=== PATIENT | male | born 1945 | race Caucasian/White ===

== ENCOUNTER 2017-01-08 05:01 | Inpatient (IN) ==
[2017-01-06 17:54] LABS: Basophils # (Auto) 0 K/mcL (0.0-0.3); Basophils % (Auto) 0.7 % (0.0-2.0); Eosinophils # (Auto) 0.3 K/mcL (0.0-0.7); Eosinophils % (Auto) 5.2 % (0.0-7.0); Granulocytes % (Auto) 69.8 % (38.0-78.0); Lymphocytes % (Auto) 15.8 % (15.5-49.0); Mean Cell Volume 87.5 fL (80.0-100.0); Mean Corpuscular HGB Conc 32.7 g/dL (31.0-36.0); Mean Corpuscular Hemoglobin 28.6 pg (26.0-34.0); Monocytes # (Auto) 0.5 K/mcL (0.1-0.9); Monocytes % (Auto) 8.5 % (1.0-9.0); Platelet Count 398 K/mcL (140-440); RBC 4.91 M/mcL (4.50-5.90); Red Cell Distribution Width 15.1 % (11.5-14.5)
[2017-01-06 18:15] LABS: ALT/SGPT 12 U/l (0-40); Albumin 4.2 gm/dL (3.2-5.2); Albumin/Globulin Ratio 1.5 (1.0-2.3); Alkaline Phosphatase 68 U/L (39-117); Blood Urea Nitrogen 38 mg/dl (8-23)
--- NOTE | 2017-01-07 15:15 | XRay Report ---
CLINICAL INFORMATION: Preop COMPARISON: 06/11/2016 FINDINGS:The heart size, mediastinum and pulmonary vessels are unremarkable. The lungs are clear. There are no effusions. The bones and soft tissues are within normal limits. IMPRESSION: Normal chest. Interpreted and Authenticated by: Mitchell Wei 01/07/17
[2017-01-08] MEDS ORDERED: metroNIDAZOLE 500 MG/100 ML BAG IV SCH (06:30)
[2017-01-08] MEDS ORDERED: cefOXitin 2 GM in DEXTROSE 5% IN WATER 50 ML IV SCH (06:30)
[2017-01-08] MEDS ORDERED: VANCOMYCIN 1,000 MG in 0.9 % SODIUM CHLORIDE 250 ML IV SCH (06:30)
[2017-01-08] MEDS ORDERED: fentaNYL 100 MCG/2 ML VIAL IV ONE (07:50)
[2017-01-08] MEDS ORDERED: LIDOCAINE HCL/PF 100 MG/5 ML SYRINGE IV ONE (07:50)
[2017-01-08] MEDS ORDERED: ONDANSETRON 4 MG/2 ML VIAL IV ONE (07:50)
[2017-01-08] MEDS ORDERED: MIDAZOLAM 5 MG/5 ML VIAL IV ONE (07:50)
[2017-01-08] MEDS ORDERED: ROCURONIUM 10 MG/ML ML IV ONE (07:50)
[2017-01-08] MEDS ORDERED: PROPOFOL 200 MG/20 ML VIAL IV ONE (07:50)
[2017-01-08] MEDS ORDERED: KETAMINE 100 MG/ML ML IV ONE (07:50)
[2017-01-08] MEDS ORDERED: NEOSTIGMINE 1 MG/ML VIAL IV ONE (07:50)
[2017-01-08] MEDS ORDERED: ePHEDrine 50 MG/ML AMPUL IV ONE (07:50)
[2017-01-08] MEDS ORDERED: GLYCOPYRROLATE 0.2 MG/ML VIAL IV ONE (07:50)
[2017-01-08] MEDS ORDERED: BACITRACIN 50,000 UNIT VIAL IR ONE (08:40)
[2017-01-08] MEDS ORDERED: METHOCARBAMOL 1,000 MG/10 ML VIAL IV PRN (09:02)
[2017-01-08] MEDS ORDERED: MEPERIDINE 25 MG/ML SYRINGE IV PRN (09:02)
[2017-01-08] MEDS ORDERED: BENZOCAINE/MENTHOL 1 LOZENGE PO PRN (09:02)
[2017-01-08] MEDS ORDERED: PROMETHAZINE 25 MG/ML VIAL IV PRN ×2 (09:02→11:01)
[2017-01-08] MEDS ORDERED: ePHEDrine 50 MG/ML AMPUL IV PRN (09:02)
[2017-01-08] MEDS ORDERED: IPRATROPIUM/ALBUTEROL 3 ML AMPUL.NEB NEB PRN (09:02)
[2017-01-08] MEDS ORDERED: LACTATED RINGERS 1,000 ML IV SCH (09:15)
--- NOTE | 2017-01-08 10:01 | XRay Report ---
CLINICAL INFORMATION: Intraoperative instrument count COMPARISON: None. FINDINGS: Stool gas pattern is unremarkable. No gross free air, soft tissue mass or organomegaly. No effusion is identified. Penile prostheses seen off the edge of the film below the pubis. IMPRESSION: Negative Interpreted and Authenticated by: Mitchell Wei 01/08/17
--- NOTE | 2017-01-08 10:03 | Brief Operative Note ---
Date of procedure: 01/08/17 Pre-op diagnosis: parastomal hernia Post-op diagnosis: other (parastomal hernia.) Procedure: parastomal hernia repair with mesh Grafts/Implants: Yes (surgimesh) Anesthesia: GETA Findings: very large parastomal hernia with multiple loops of incarcerated small bowel loops Complications: none Surgeon: Rolo Cole Estimated blood loss (cc): 20 Specimens Removed/Pathology: none sent Condition: stable Disposition: PACU
[2017-01-08] MEDS ORDERED: oxyCODONE HCL 5 MG TABLET PO PRN (10:09)
[2017-01-08] MEDS: fentaNYL 100 MCG/2 ML VIAL IV PRN ×4 (10:10→10:40)
[2017-01-08] MEDS: HYDROmorphone 2 MG/ML SYRINGE IV PRN ×6 (10:30→19:59)
[2017-01-08] MEDS: 0.9 % SODIUM CHLORIDE 1,000 ML IV SCH (11:00)
[2017-01-08] MEDS ORDERED: HYDROmorphone 2 MG/ML SYRINGE ONE (11:27)
[2017-01-08] MEDS: METOCLOPRAMIDE 10 MG/2 ML VIAL IV SCH ×3 (12:31→23:54)
[2017-01-08] MEDS: PIPERACILLIN SODIUM/TAZOBACTAM 3.375 GM in DEXTROSE 5% IN WATER 50 ML IV SCH ×2 (12:32→17:20)
[2017-01-08] MEDS: metroNIDAZOLE 500 MG/100 ML BAG IV SCH ×2 (13:33→17:47)
[2017-01-08] MEDS: oxyCODONE HCL 5 MG TABLET PO PRN ×2 (13:33→19:58)
[2017-01-08 16:12] LABS: Blood Urea Nitrogen 32 mg/dl (8-23)
[2017-01-08] MEDS: PANTOPRAZOLE 40 MG PACKET PO SCH (17:19)
[2017-01-08] MEDS ORDERED: POTASSIUM CHLORIDE 10 MEQ TABLET PO SCH (17:30)
[2017-01-08] MEDS: POTASSIUM CHLORIDE 10 MEQ TABLET PO SCH (17:47)
[2017-01-08] MEDS ORDERED: ZOLPIDEM 5 MG TABLET PO PRN ×2 (21:00)
[2017-01-08] MEDS: VANCOMYCIN 1,000 MG in 0.9 % SODIUM CHLORIDE 250 ML IV SCH (21:24)
[2017-01-08] MEDS: ACETAMINOPHEN 1,000 MG/100 ML BOTTLE IV PRN (23:54)
[2017-01-09] MEDS: PIPERACILLIN SODIUM/TAZOBACTAM 3.375 GM in DEXTROSE 5% IN WATER 50 ML IV SCH ×4 (01:06→17:12)
[2017-01-09] MEDS: metroNIDAZOLE 500 MG/100 ML BAG IV SCH ×4 (01:51→17:49)
[2017-01-09] MEDS: 0.9 % SODIUM CHLORIDE 1,000 ML IV SCH ×4 (01:56→19:11)
[2017-01-09] MEDS: oxyCODONE HCL 5 MG TABLET PO PRN ×3 (06:18→21:27)
[2017-01-09] MEDS: METOCLOPRAMIDE 10 MG/2 ML VIAL IV SCH ×3 (06:18→17:11)
[2017-01-09 07:42] LABS: Blood Urea Nitrogen 21 mg/dl (8-23)
[2017-01-09] MEDS: PANTOPRAZOLE 40 MG PACKET PO SCH ×2 (08:03→17:11)
[2017-01-09] MEDS ORDERED: TAMSULOSIN 0.4 MG CAPSULE PO SCH (09:00)
[2017-01-09] MEDS ORDERED: LISINOPRIL 20 MG TABLET PO SCH (09:00)
[2017-01-09 09:31] LABS: Basophils # (Auto) 0 K/mcL (0.0-0.3); Basophils % (Auto) 0.1 % (0.0-2.0); Eosinophils # (Auto) 0.1 K/mcL (0.0-0.7); Granulocytes % (Auto) 86.4 % (38.0-78.0); Lymphocytes # (Auto) 0.3 K/mcL (1.5-4.8); Lymphocytes % (Auto) 3.5 % (15.5-49.0); Mean Cell Volume 86.4 fL (80.0-100.0); Mean Corpuscular HGB Conc 33.2 g/dL (31.0-36.0); Mean Corpuscular Hemoglobin 28.7 pg (26.0-34.0); Monocytes # (Auto) 0.7 K/mcL (0.1-0.9); Platelet Count 343 K/mcL (140-440); RBC 4.54 M/mcL (4.50-5.90); Red Cell Distribution Width 14.8 % (11.5-14.5)
[2017-01-09] MEDS: LISINOPRIL 20 MG TABLET PO SCH (09:43)
[2017-01-09] MEDS: TAMSULOSIN 0.4 MG CAPSULE PO SCH (09:44)
[2017-01-09] MEDS ORDERED: VANCOMYCIN PER PHARMACY IV SCH (09:45)
[2017-01-09] MEDS: POTASSIUM CHLORIDE 10 MEQ TABLET PO SCH ×2 (09:51→17:11)
[2017-01-09] MEDS: HYDROmorphone 2 MG/ML SYRINGE IV PRN ×2 (10:13→17:12)
[2017-01-09] MEDS: VANCOMYCIN 750 MG in 0.9 % SODIUM CHLORIDE 250 ML IV SCH ×2 (10:21→21:08)
[2017-01-09] MEDS: VANCOMYCIN 1,000 MG in 0.9 % SODIUM CHLORIDE 250 ML IV SCH (11:35)
--- NOTE | 2017-01-09 13:53 | General Surgery Progress Note ---
Subjective Patient reports: feels better, still having pain, tolerating liquids well, no flatus, no bowel movement, afebrile Narrative: Note initiated : 01/09/17 at 1:53 pm Service Date, if different from initiated Date: [] Patient: Mainor Moran 72 y/o M admitted on 01/08/17 for Parastomal Hernia Repair. Chief Complaint: [patient is doing well except for incisional pain. He is tolerating clear liquids without nausea. He has not had any movement through his stoma so for. He is afebrile.] Objective Temp Pulse Resp BP Pulse Ox 99.0 F 72 16 116/62 93 01/09/17 12:00 01/09/17 12:00 01/09/17 12:00 01/09/17 12:00 01/09/17 12:00 - Additional Data Intake & Output - Last 24 hours: Intake & Output 01/07/17 01/08/17 01/09/17 01/10/17 05:59 05:59 05:59 05:59 Intake Total 4090 / 4090 2680 / 2680 Output Total 3350 / 3350 2200 / 2200 Balance 740 / 740 480 / 480 Weight 270 lb 265 lb 266 lb 266 lb - Additional Exam head and neck exam unremarkable Chest clear to auscultation bilaterally Heart regular rhythm no tachycardia or ectopy Abdomen soft, pliable; incision looks good; stoma is healthy but without any drainage extremities no peripheral edema Neurologic exam no focal deficits - Labs 01/09/17 08:41 01/09/17 05:35 Diabetes panel 01/08/17 01/09/17 Range/Units 14:05 05:35 Sodium 139 137 (133-145) mmol/L Potassium 5.0 4.9 (3.3-5.1) mmol/L Chloride 102 103 (96-108) mmol/L Carbon Dioxide 20 L 20 L (22-30) mmol/L BUN 32 H 21 (8-23) mg/dl Creatinine 1.6 H 1.5 H (0.7-1.2) mg/dl Glucose 191 H 95 (70-105) mg/dL Calcium 8.5 L 8.0 L (8.6-10.4) mg/dl Calcium panel 01/08/17 01/09/17 Range/Units 14:05 05:35 Calcium 8.5 L 8.0 L (8.6-10.4) mg/dl Pituitary panel 01/08/17 01/09/17 Range/Units 14:05 05:35 Sodium 139 137 (133-145) mmol/L Potassium 5.0 4.9 (3.3-5.1) mmol/L Chloride 102 103 (96-108) mmol/L Carbon Dioxide 20 L 20 L (22-30) mmol/L BUN 32 H 21 (8-23) mg/dl Creatinine 1.6 H 1.5 H (0.7-1.2) mg/dl Glucose 191 H 95 (70-105) mg/dL Calcium 8.5 L 8.0 L (8.6-10.4) mg/dl Adrenal panel 01/08/17 01/09/17 Range/Units 14:05 05:35 Sodium 139 137 (133-145) mmol/L Potassium 5.0 4.9 (3.3-5.1) mmol/L Chloride 102 103 (96-108) mmol/L Carbon Dioxide 20 L 20 L (22-30) mmol/L BUN 32 H 21 (8-23) mg/dl Creatinine 1.6 H 1.5 H (0.7-1.2) mg/dl Glucose 191 H 95 (70-105) mg/dL Calcium 8.5 L 8.0 L (8.6-10.4) mg/dl Medical - PN: A/P - Time Spent With Patient Total time spent is greater than 50% in coordination of care (as documented) at patient's floor/unit and/or counseling patient: - Narrative A/P Narrative: status post repair of parastomal hernia; stable and improving Present therapy will be continued
[2017-01-09] MEDS: ACETAMINOPHEN 1,000 MG/100 ML BOTTLE IV PRN (14:40)
[2017-01-10] MEDS: METOCLOPRAMIDE 10 MG/2 ML VIAL IV SCH ×4 (00:06→17:53)
[2017-01-10] MEDS: PIPERACILLIN SODIUM/TAZOBACTAM 3.375 GM in DEXTROSE 5% IN WATER 50 ML IV SCH ×4 (00:06→18:03)
[2017-01-10] MEDS: metroNIDAZOLE 500 MG/100 ML BAG IV SCH ×4 (01:13→19:02)
[2017-01-10] MEDS: 0.9 % SODIUM CHLORIDE 1,000 ML IV SCH ×3 (05:16→13:07)
--- NOTE | 2017-01-10 06:13 | XRay Report ---
CLINICAL INFORMATION: NG placement COMPARISON: Abdomen and pelvic CT from 12/26/2016 FINDINGS: NG tube overlies the gastric body. Multiple loops of mildly dilated small bowel in the central abdomen. The distal small bowel and colon are decompressed. Findings are compatible partial small bowel obstruction. No free air, soft tissue mass or organomegaly IMPRESSION: Partial small bowel obstruction - mid jejunum. NG tube in satisfactory position Interpreted and Authenticated by: Mitchell Wei 01/10/17
[2017-01-10 06:55] LABS: Basophils # (Auto) 0 K/mcL (0.0-0.3); Basophils % (Auto) 0.1 % (0.0-2.0); Eosinophils # (Auto) 0 K/mcL (0.0-0.7); Eosinophils % (Auto) 0 % (0.0-7.0); Granulocytes % (Auto) 89.8 % (38.0-78.0); Lymphocytes # (Auto) 0.3 K/mcL (1.5-4.8); Lymphocytes % (Auto) 2.6 % (15.5-49.0); Mean Cell Volume 87.3 fL (80.0-100.0); Mean Corpuscular Hemoglobin 28.8 pg (26.0-34.0); Monocytes # (Auto) 0.8 K/mcL (0.1-0.9); Monocytes % (Auto) 7.5 % (1.0-9.0); Platelet Count 335 K/mcL (140-440); RBC 4.81 M/mcL (4.50-5.90); Red Cell Distribution Width 14.8 % (11.5-14.5)
[2017-01-10] MEDS: HYDROmorphone 2 MG/ML SYRINGE IV PRN ×2 (07:23→17:54)
[2017-01-10 07:26] LABS: Blood Urea Nitrogen 15 mg/dl (8-23)
[2017-01-10] MEDS: PANTOPRAZOLE 40 MG PACKET PO SCH (08:20)
[2017-01-10] MEDS: POTASSIUM CHLORIDE 10 MEQ TABLET PO SCH (08:20)
[2017-01-10] MEDS: LISINOPRIL 20 MG TABLET PO SCH (08:21)
[2017-01-10] MEDS: TAMSULOSIN 0.4 MG CAPSULE PO SCH (08:21)
[2017-01-10] MEDS: VANCOMYCIN 500 MG in 0.9 % SODIUM CHLORIDE 100 ML IV SCH ×2 (10:53→21:35)
--- NOTE | 2017-01-10 12:29 | General Surgery Progress Note ---
Subjective Patient reports: still having pain, pain is less, no flatus, no bowel movement, fever Narrative: Note initiated : 01/10/17 at 12:27 pm Service Date, if different from initiated Date: [] Patient: Mainor Moran 72 y/o M admitted on 01/08/17 for Parastomal Hernia Repair. Chief Complaint: [the patient developed some nausea with vomiting last eveningwith emesis of a large volume bilious liquid. NG tube was placed with return of over 800 cc. He has not had any gas or liquid out of his stoma. X- rays show that he has significant ileus and this will have to be monitored He is already on Reglan.] Objective Temp Pulse Resp BP Pulse Ox 100.5 F H 91 H 16 116/62 96 01/10/17 12:03 01/10/17 12:03 01/10/17 12:03 01/10/17 12:03 01/10/17 09:59 - Additional Data Intake & Output - Last 24 hours: Intake & Output 01/08/17 01/09/17 01/10/17 01/11/17 05:59 05:59 05:59 05:59 Intake Total 4190 / 4190 5950 / 5950 850 / 850 Output Total 3350 / 3350 6325 / 6325 2650 / 2650 Balance 840 / 840 -375 / -375 -1800 / -1800 Weight 265 lb 266 lb 272 lb 8 oz - General physical appearance no distress, moderate pain, obese - Eyes PERRL - ENT no congestion - Neck no venous distension - Respiratory clear to auscultation - Cardiovascular Cardiovascular exam: Present: normal rate and rhythm, RRR, +S1, +S2. Absent: JVD - Abdomen soft, tender, bowel sounds, distended (hypoactive bowel sounds; stoma and incision looked good; moderate distention process) - Integumentary no rash, no growths, no abnormal pigmentation - Neurologic normal coordination, normal sensation - Musculoskeletal normal gait, normal posture - Psychiatric oriented to time, oriented to person, oriented to place, speech is normal, memory intact - Labs 01/10/17 05:20 01/10/17 05:20 Diabetes panel 01/10/17 Range/Units 05:20 Sodium 137 (133-145) mmol/L Potassium 4.6 (3.3-5.1) mmol/L Chloride 101 (96-108) mmol/L Carbon Dioxide 22 (22-30) mmol/L BUN 15 (8-23) mg/dl Creatinine 1.5 H (0.7-1.2) mg/dl Glucose 132 H (70-105) mg/dL Calcium 8.4 L (8.6-10.4) mg/dl Calcium panel 01/10/17 Range/Units 05:20 Calcium 8.4 L (8.6-10.4) mg/dl Pituitary panel 01/10/17 Range/Units 05:20 Sodium 137 (133-145) mmol/L Potassium 4.6 (3.3-5.1) mmol/L Chloride 101 (96-108) mmol/L Carbon Dioxide 22 (22-30) mmol/L BUN 15 (8-23) mg/dl Creatinine 1.5 H (0.7-1.2) mg/dl Glucose 132 H (70-105) mg/dL Calcium 8.4 L (8.6-10.4) mg/dl Adrenal panel 01/10/17 Range/Units 05:20 Sodium 137 (133-145) mmol/L Potassium 4.6 (3.3-5.1) mmol/L Chloride 101 (96-108) mmol/L Carbon Dioxide 22 (22-30) mmol/L BUN 15 (8-23) mg/dl Creatinine 1.5 H (0.7-1.2) mg/dl Glucose 132 H (70-105) mg/dL Calcium 8.4 L (8.6-10.4) mg/dl - Imaging Abdominal x-ray: report reviewed, image reviewed Medical - PN: A/P - Time Spent With Patient Total time spent is greater than 50% in coordination of care (as documented) at patient's floor/unit and/or counseling patient: (1) Postoperative ileus Status: Acute Assessment and plan: nasogastric suction will be continued We will placemilk of magnesia. NG tube after 6 PM for 2 doses and discontinue the dissection for 2 hours after each dose. Repeat abdominal series in the morning Current Visit: Yes (2) Parastomal hernia Status: Chronic Current Visit: No
[2017-01-10] MEDS: VANCOMYCIN 750 MG in 0.9 % SODIUM CHLORIDE 250 ML IV SCH (13:17)
[2017-01-10] MEDS: MAGNESIUM HYDROXIDE 30 ML ORAL.SUSP PT SCH ×2 (14:30→19:25)
[2017-01-10] MEDS: PANTOPRAZOLE 40 MG VIAL IV SCH (17:53)
[2017-01-11] MEDS: METOCLOPRAMIDE 10 MG/2 ML VIAL IV SCH ×5 (00:04→23:47)
[2017-01-11] MEDS: PIPERACILLIN SODIUM/TAZOBACTAM 3.375 GM in DEXTROSE 5% IN WATER 50 ML IV SCH ×5 (00:04→23:02)
[2017-01-11] MEDS: MAGNESIUM HYDROXIDE 30 ML ORAL.SUSP PT SCH ×2 (00:59→07:47)
[2017-01-11] MEDS: metroNIDAZOLE 500 MG/100 ML BAG IV SCH ×5 (01:00→23:47)
[2017-01-11] MEDS: 0.9 % SODIUM CHLORIDE 1,000 ML IV SCH ×5 (02:05→23:03)
[2017-01-11 06:52] LABS: Basophils # (Auto) 0 K/mcL (0.0-0.3); Basophils % (Auto) 0.1 % (0.0-2.0); Eosinophils # (Auto) 0.4 K/mcL (0.0-0.7); Eosinophils % (Auto) 3.8 % (0.0-7.0); Granulocytes % (Auto) 82.6 % (38.0-78.0); Lymphocytes # (Auto) 0.5 K/mcL (1.5-4.8); Lymphocytes % (Auto) 5.5 % (15.5-49.0); Mean Cell Volume 86.9 fL (80.0-100.0); Mean Corpuscular HGB Conc 32.8 g/dL (31.0-36.0); Mean Corpuscular Hemoglobin 28.5 pg (26.0-34.0); Monocytes # (Auto) 0.8 K/mcL (0.1-0.9); Platelet Count 343 K/mcL (140-440); RBC 4.43 M/mcL (4.50-5.90); Red Cell Distribution Width 14.8 % (11.5-14.5)
[2017-01-11 07:18] LABS: Blood Urea Nitrogen 18 mg/dl (8-23)
[2017-01-11] MEDS: PANTOPRAZOLE 40 MG VIAL IV SCH ×2 (07:47→17:40)
[2017-01-11] MEDS: HYDROmorphone 2 MG/ML SYRINGE IV PRN ×3 (09:03→18:44)
--- NOTE | 2017-01-11 09:12 | XRay Report ---
CLINICAL INFORMATION: Follow-up partial small bowel obstruction. Recent repair of parastomal hernia COMPARISON: Preoperative CT 12/26/2016 and plain films from 01/10/2017 FINDINGS: NG tube in satisfactory position. The small bowel, right and transverse colon are only mildly dilated with scattered air-fluid levels. Colostomy is acknowledged in the left lower quadrant. 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 No gas seen in the rectosigmoid segment - as expected IMPRESSION: Mild ileus Interpreted and Authenticated by: Mitchell Wei 01/11/17
[2017-01-11] MEDS: VANCOMYCIN 500 MG in 0.9 % SODIUM CHLORIDE 100 ML IV SCH ×2 (10:48→20:38)
--- NOTE | 2017-01-11 13:13 | General Surgery Progress Note ---
Subjective Patient reports: feels better, pain is less, flatus, bowel movement, diarrhea, afebrile Narrative: Note initiated : 01/11/17 at 1:10 pm Service Date, if different from initiated Date: [] Patient: Mainor Moran 72 y/o M admitted on 01/08/17 for Parastomal Hernia Repair. Chief Complaint: [patient is doing much better. He has been afebrile and he has had over 800 cc of liquid stool from his stoma. His abdomen is much softer and he complains of hunger.. he has good active bowel sounds.] Objective Temp Pulse Resp BP Pulse Ox 99.0 F 70 18 136/78 94 01/11/17 09:00 01/11/17 09:00 01/11/17 09:00 01/11/17 09:00 01/11/17 03:10 - Additional Data Intake & Output - Last 24 hours: Intake & Output 01/09/17 01/10/17 01/11/17 01/12/17 05:59 05:59 05:59 05:59 Intake Total 4190 / 4190 5950 / 5950 3198 / 3198 Output Total 3350 / 3350 6325 / 6325 5535 / 5535 600 / 600 Balance 840 / 840 -375 / -375 -2337 / -2337 -600 / -600 Weight 266 lb 272 lb 8 oz 268 lb - Abdomen soft, tender, bowel sounds (good active bowel sounds with much less distention; incision looks good) - Integumentary no rash, no growths, no abnormal pigmentation - Neurologic normal coordination, normal sensation - Musculoskeletal normal gait - Psychiatric oriented to time, oriented to person, oriented to place, speech is normal, memory intact - Labs 01/11/17 05:15 01/11/17 05:15 Diabetes panel 01/11/17 Range/Units 05:15 Sodium 142 (133-145) mmol/L Potassium 4.3 (3.3-5.1) mmol/L Chloride 104 (96-108) mmol/L Carbon Dioxide 23 (22-30) mmol/L BUN 18 (8-23) mg/dl Creatinine 1.6 H (0.7-1.2) mg/dl Glucose 98 (70-105) mg/dL Calcium 7.9 L (8.6-10.4) mg/dl Calcium panel 01/11/17 Range/Units 05:15 Calcium 7.9 L (8.6-10.4) mg/dl Pituitary panel 01/11/17 Range/Units 05:15 Sodium 142 (133-145) mmol/L Potassium 4.3 (3.3-5.1) mmol/L Chloride 104 (96-108) mmol/L Carbon Dioxide 23 (22-30) mmol/L BUN 18 (8-23) mg/dl Creatinine 1.6 H (0.7-1.2) mg/dl Glucose 98 (70-105) mg/dL Calcium 7.9 L (8.6-10.4) mg/dl Adrenal panel 01/11/17 Range/Units 05:15 Sodium 142 (133-145) mmol/L Potassium 4.3 (3.3-5.1) mmol/L Chloride 104 (96-108) mmol/L Carbon Dioxide 23 (22-30) mmol/L BUN 18 (8-23) mg/dl Creatinine 1.6 H (0.7-1.2) mg/dl Glucose 98 (70-105) mg/dL Calcium 7.9 L (8.6-10.4) mg/dl Medical - PN: A/P - Time Spent With Patient Total time spent is greater than 50% in coordination of care (as documented) at patient's floor/unit and/or counseling patient: (1) Postoperative ileus Status: Acute Assessment and plan: diet is advanced to clear liquids Activity will be increased with plans for possible discharge tomorrow Current Visit: Yes (2) Parastomal hernia Status: Chronic Current Visit: No
[2017-01-11] MEDS: oxyCODONE HCL 5 MG TABLET PO PRN (21:40)
[2017-01-12] MEDS: oxyCODONE HCL 5 MG TABLET PO PRN (05:01)
[2017-01-12] MEDS: 0.9 % SODIUM CHLORIDE 1,000 ML IV SCH (05:02)
[2017-01-12] MEDS: PIPERACILLIN SODIUM/TAZOBACTAM 3.375 GM in DEXTROSE 5% IN WATER 50 ML IV SCH ×2 (05:10→13:19)
[2017-01-12] MEDS: METOCLOPRAMIDE 10 MG/2 ML VIAL IV SCH ×2 (05:10→13:19)
[2017-01-12] MEDS: metroNIDAZOLE 500 MG/100 ML BAG IV SCH ×2 (05:56→12:00)
[2017-01-12 07:10] LABS: Basophils # (Auto) 0.1 K/mcL (0.0-0.3); Basophils % (Auto) 0.7 % (0.0-2.0); Eosinophils # (Auto) 0.6 K/mcL (0.0-0.7); Granulocytes % (Auto) 74.4 % (38.0-78.0); Lymphocytes # (Auto) 0.6 K/mcL (1.5-4.8); Lymphocytes % (Auto) 7.5 % (15.5-49.0); Mean Cell Volume 84.6 fL (80.0-100.0); Mean Corpuscular HGB Conc 34.2 g/dL (31.0-36.0); Mean Corpuscular Hemoglobin 28.9 pg (26.0-34.0); Monocytes # (Auto) 0.7 K/mcL (0.1-0.9); Monocytes % (Auto) 9.4 % (1.0-9.0); Platelet Count 302 K/mcL (140-440); RBC 4.07 M/mcL (4.50-5.90); Red Cell Distribution Width 13.9 % (11.5-14.5)
[2017-01-12 07:29] LABS: Blood Urea Nitrogen 20 mg/dl (8-23)
[2017-01-12] MEDS: PANTOPRAZOLE 40 MG VIAL IV SCH (11:24)
[2017-01-12] MEDS: VANCOMYCIN 500 MG in 0.9 % SODIUM CHLORIDE 100 ML IV SCH (11:24)
[2017-01-12] MEDS: HYDROmorphone 2 MG/ML SYRINGE IV PRN (11:30)
--- NOTE | 2017-01-12 13:20 | Discharge Summary ---
Providers - Providers Patient information: Note initiated : 01/12/17 at 1:17 pm Service Date, if different from initiated Date: [] Patient: Mainor Moran 72 y/o M admitted on 01/08/17 for Parastomal Hernia Repair. Chief Complaint: [] Date of admission: 01/08/17 Discharge date: 01/12/17 Attending physician: Rolo Cole Hospitalization Hospital course: 72-YEAR-OLD MALEWITH HISTORY OF LARGE PARASTOMAL HERNIA, RECURRENT PARTIAL OBSTRUCTION AND DIFFICULTY WITH HIS STOMAL APPLIANCE DUE TO BULGING. hE UNDERWENT PARASTOMAL HERNIA REPAIR O 08 January 2017. hE HAD MILD POSTOPERATIVE ILEUS BUT FOR THE PAST 36 HOURSHE HAS HAD GOOD STOMAL FUNCTION AND HAS TOLERATED LIQUID DIET. hIS INCISION IS HEALING UNEVENTFULLY. vITAL SIGNS AND LABS HAVE BEEN STABLE. hE IS STABLE FOR DISCHARGE HOME. Discharge diagnosis: PARASTOMAL HERNIA Reason for admission: PARASTOMAL HERNIA Procedures: REPAIR OF PARASTOMAL HERNIA WITH MESH GRAFT Complications: NONE Exam Temp Pulse Resp BP Pulse Ox 98.6 F 80 14 142/58 98 01/12/17 12:00 01/12/17 12:00 01/12/17 12:00 01/12/17 12:00 01/12/17 12:00 - Cardiovascular Cardiovascular exam IM: Present: normal rate and rhythm, RRR, +S1, +S2. Absent : JVD - Respiratory normal expansion, normal respiratory effort, clear to auscultation - Abdomen Abdomen: Present: soft, tender (MILD TENDERNESS IN THE OPERATIVE SITE; GOOD BOWEL SOUNDS; STOMA IS FUNCTIONING NORMAL) Discharge Plan - Patient/Caregiver Discharge Instructions Activity: increase activity as tolerated Diet: Regular Diet Prescriptions: oxyCODONE HCL [Roxicodone] 10 mg PO Q6HP PRN 60 Days PRN Reason: Pain - Follow up Plan Follow up with: Rolo Cole MD [Physician] - Disposition: Home, Self-Care Prognosis: Good Rehab Potential: Good I certify that the patient requires SNF services.: No Overall status at discharge: patient is progressing back to baseline Pending Studies Resuscitation Status Full Code Diet Clear Liquid Diet Start Sat Jan 11 Dinner Hydromorphone HCl (Dilaudid) 1 mg IV Q4HP PRN PRN Reason: Pain Last Admin: 01/12/17 11:30 Dose: 1 mg Admin: 01/11/17 18:44 Dose: 1 mg Admin: 01/11/17 14:02 Dose: 1 mg Admin: 01/11/17 09:03 Dose: 1 mg Admin: 01/10/17 17:54 Dose: 1 mg Admin: 01/10/17 07:23 Dose: 1 mg Admin: 01/09/17 17:12 Dose: 1 mg Admin: 01/09/17 10:13 Dose: 1 mg Admin: 01/08/17 19:59 Dose: 1 mg Admin: 01/08/17 15:19 Dose: 1 mg Sodium Chloride (Sodium Chloride 0.9%) 1,000 mls @ 100 mls/hr IV .Q10H QUENTIN Last Admin: 01/12/17 05:02 Dose: Not Given Admin: 01/11/17 23:03 Dose: 100 mls/hr Infusion: 01/11/17 23:03 Dose: 0 mls/hr Admin: 01/11/17 18:39 Dose: Admin: 01/11/17 14:42 Dose: Not Given Admin: 01/11/17 05:56 Dose: 100 mls/hr Admin: 01/11/17 02:05 Dose: Infusion: 01/10/17 23:07 Dose: 100 mls/hr Admin: 01/10/17 13:07 Dose: 100 mls/hr Infusion: 01/10/17 13:07 Dose: 100 mls/hr Admin: 01/10/17 10:47 Dose: 100 mls/hr Admin: 01/10/17 05:16 Dose: Infusion: 01/10/17 05:11 Dose: 100 mls/hr Admin: 01/09/17 19:11 Dose: 100 mls/hr Admin: 01/09/17 17:38 Dose: Not Given Infusion: 01/09/17 11:56 Dose: 100 mls/hr Admin: 01/09/17 11:34 Dose: Not Given Admin: 01/09/17 01:56 Dose: 100 mls/hr Infusion: 01/08/17 21:00 Dose: 100 mls/hr Admin: 01/08/17 11:00 Dose: 100 mls/hr Acetaminophen (Ofirmev) 1,000 mg in 100 mls @ 200 mls/hr IV Q6HP PRN PRN Reason: Pain Last Infusion: 01/09/17 16:42 Dose: 0 mls/hr Admin: 01/09/17 14:40 Dose: 200 mls/hr Infusion: 01/09/17 00:24 Dose: 200 mls/hr Admin: 01/08/17 23:54 Dose: 200 mls/hr Piperacillin Sod/Tazobactam (Sod 3.375 gm/ Dextrose) 50 mls @ 100 mls/hr IV Q6 QUENTIN Last Infusion: 01/12/17 05:47 Dose: 0 mls/hr Admin: 01/12/17 05:10 Dose: 100 mls/hr Infusion: 01/11/17 23:35 Dose: 0 mls/hr Admin: 01/11/17 23:02 Dose: 100 mls/hr Infusion: 01/11/17 21:33 Dose: 0 mls/hr Admin: 01/11/17 17:32 Dose: 100 mls/hr Infusion: 01/11/17 12:47 Dose: 100 mls/hr Admin: 01/11/17 12:17 Dose: 100 mls/hr Infusion: 01/11/17 05:37 Dose: 100 mls/hr Admin: 01/11/17 05:07 Dose: 100 mls/hr Infusion: 01/11/17 00:34 Dose: 100 mls/hr Admin: 01/11/17 00:04 Dose: 100 mls/hr Infusion: 01/10/17 18:33 Dose: 100 mls/hr Admin: 01/10/17 18:03 Dose: 100 mls/hr Infusion: 01/10/17 12:52 Dose: 100 mls/hr Admin: 01/10/17 12:22 Dose: 100 mls/hr Infusion: 01/10/17 05:47 Dose: 100 mls/hr Admin: 01/10/17 05:17 Dose: 100 mls/hr Infusion: 01/10/17 00:36 Dose: 100 mls/hr Admin: 01/10/17 00:06 Dose: 100 mls/hr Infusion: 01/09/17 17:42 Dose: 100 mls/hr Admin: 01/09/17 17:12 Dose: 100 mls/hr Infusion: 01/09/17 14:09 Dose: 0 mls/hr Admin: 01/09/17 12:13 Dose: 100 mls/hr Infusion: 01/09/17 07:15 Dose: 0 mls/hr Admin: 01/09/17 06:15 Dose: 100 mls/hr Infusion: 01/09/17 01:36 Dose: 100 mls/hr Admin: 01/09/17 01:06 Dose: 100 mls/hr Infusion: 01/08/17 17:50 Dose: 100 mls/hr Admin: 01/08/17 17:20 Dose: 100 mls/hr Infusion: 01/08/17 13:08 Dose: 0 mls/hr Admin: 01/08/17 12:32 Dose: 100 mls/hr Metronidazole (Flagyl) 500 mg in 100 mls @ 100 mls/hr IV Q6 QUENTIN Last Admin: 01/12/17 05:56 Dose: 100 mls/hr Infusion: 01/12/17 00:50 Dose: 0 mls/hr Admin: 01/11/17 23:47 Dose: 100 mls/hr Infusion: 01/11/17 21:33 Dose: 0 mls/hr Admin: 01/11/17 18:39 Dose: 100 mls/hr Infusion: 01/11/17 18:24 Dose: 0 mls/hr Admin: 01/11/17 14:02 Dose: 100 mls/hr Infusion: 01/11/17 06:52 Dose: 100 mls/hr Admin: 01/11/17 05:52 Dose: 100 mls/hr Infusion: 01/11/17 02:00 Dose: 100 mls/hr Admin: 01/11/17 01:00 Dose: 100 mls/hr Infusion: 01/10/17 20:02 Dose: 100 mls/hr Admin: 01/10/17 19:02 Dose: 100 mls/hr Infusion: 01/10/17 14:07 Dose: 100 mls/hr Admin: 01/10/17 13:07 Dose: 100 mls/hr Infusion: 01/10/17 07:01 Dose: 100 mls/hr Admin: 01/10/17 06:01 Dose: 100 mls/hr Infusion: 01/10/17 02:13 Dose: 100 mls/hr Admin: 01/10/17 01:13 Dose: 100 mls/hr Infusion: 01/09/17 18:49 Dose: 100 mls/hr Admin: 01/09/17 17:49 Dose: 100 mls/hr Infusion: 01/09/17 14:54 Dose: 0 mls/hr Admin: 01/09/17 13:15 Dose: 100 mls/hr Infusion: 01/09/17 11:17 Dose: 0 mls/hr Admin: 01/09/17 07:15 Dose: 100 mls/hr Infusion: 01/09/17 02:51 Dose: 100 mls/hr Admin: 01/09/17 01:51 Dose: 100 mls/hr Infusion: 01/08/17 18:45 Dose: 0 mls/hr Admin: 01/08/17 17:47 Dose: 100 mls/hr Infusion: 01/08/17 14:33 Dose: 0 mls/hr Admin: 01/08/17 13:33 Dose: 100 mls/hr Vancomycin HCl 500 mg/ Sodium (Chloride) 100 mls @ 100 mls/hr IV Q12 [facility] Last Admin: 01/12/17 11:24 Dose: 100 mls/hr Infusion: 01/11/17 21:34 Dose: 0 mls/hr Admin: 01/11/17 20:38 Dose: 100 mls/hr Infusion: 01/11/17 11:48 Dose: 100 mls/hr Admin: 01/11/17 10:48 Dose: 100 mls/hr Infusion: 01/10/17 22:35 Dose: 100 mls/hr Admin: 01/10/17 21:35 Dose: 100 mls/hr Infusion: 01/10/17 11:53 Dose: 100 mls/hr Admin: 01/10/17 10:53 Dose: 100 mls/hr Metoclopramide HCl (Reglan) 10 mg IV Q6 [facility] Last Admin: 01/12/17 05:10 Dose: 10 mg Admin: 01/11/17 23:47 Dose: 10 mg Admin: 01/11/17 17:40 Dose: 10 mg Admin: 01/11/17 12:17 Dose: 10 mg Admin: 01/11/17 05:14 Dose: 10 mg Admin: 01/11/17 00:04 Dose: 10 mg Admin: 01/10/17 17:53 Dose: 10 mg Admin: 01/10/17 13:07 Dose: 10 mg Admin: 01/10/17 05:17 Dose: 10 mg Admin: 01/10/17 00:06 Dose: 10 mg Admin: 01/09/17 17:11 Dose: 10 mg Admin: 01/09/17 13:15 Dose: 10 mg Admin: 01/09/17 06:18 Dose: 10 mg Admin: 01/08/17 23:54 Dose: 10 mg Admin: 01/08/17 17:47 Dose: 10 mg Admin: 01/08/17 12:31 Dose: 10 mg Oxycodone HCl (Roxicodone) 5 mg PO Q6HP PRN PRN Reason: Pain Last Admin: 01/12/17 05:01 Dose: 5 mg Admin: 01/11/17 21:40 Dose: 5 mg Admin: 01/09/17 21:27 Dose: 5 mg Admin: 01/09/17 12:14 Dose: 5 mg Admin: 01/09/17 06:18 Dose: 5 mg Admin: 01/08/17 19:58 Dose: 5 mg Admin: 01/08/17 13:33 Dose: 5 mg Pantoprazole Sodium (Protonix) 40 mg IV BIDAC QUENTIN Last Admin: 01/12/17 11:24 Dose: 40 mg Admin: 01/11/17 17:40 Dose: 40 mg Admin: 01/11/17 07:47 Dose: 40 mg Admin: 01/10/17 17:53 Dose: 40 mg Promethazine HCl (Phenergan) 12.5 mg IV Q4HP PRN PRN Reason: Nausea And Vomiting Last Admin: 01/10/17 00:06 Dose: 12.5 mg Shift Summary 01/11/17 22:48 Shift Summary by Kimberly Turner Addendum entered and electronically signed by Kimberly Turner RN 01/11/17 23:24: Verbal report given to OLMAN French. Original Note: Patient had a good evening. He is alert, oriented and pleasant. Midline abd incision with margins well-approximated, small amount of bloody drainage. Ostomy draining liquid brown stool, 175mL since 1800. Patient is tolerating clear liquids. PIV to left wrist with NS @100. Lanier catheter draining adequate amt of clear yellow urine. Anticipate D/C home on 01/12. Initialized on 01/11/17 22:48 - END OF NOTE
--- NOTE | 2017-01-13 14:33 | Operative Note ---
DATE OF OPERATION: 01/08/2017 PREOPERATIVE DIAGNOSIS: Parastomal hernia. POSTOPERATIVE DIAGNOSIS: Parastomal hernia with incarcerated small bowel. PROCEDURE: Parastomal hernia repair with mesh. SURGEON: Rolo Cole MD. FINDINGS: A very large parastomal hernia with multiple loops of small bowel incarcerated in the hernia sac around the stoma. DESCRIPTION OF PROCEDURE: After general anesthesia was induced, the stoma was closed temporarily using running locking 2-0 Prolene. The abdominal wall was prepped and draped in the sterile field with placement of Ioban dressing. A timeout procedure was carried out as per protocol. A midline incision was made using the old incision. There were not a lot of adhesions in the peritoneal cavity. The small bowel was gently run and was pulled from the large parastomal defect. It was tightly adherent in the cavity. Once the small bowel was removed the area was inspected and the defect was about 6 to 7 cm in diameter. It ran longitudinally. It was elected to close the defect using interrupted #1 Prolene. Seven sutures of interrupted #1 Prolene were placed. Once they were all placed they were tied individually to make sure that there was not tight constriction of the stoma. There was enough space around the stoma to get two fingerbreadths of tissue. The mesh was chosen. It was a 15 x 22 cm Surgimesh. A keyhole type opening was cut out of the side of the mesh. This was then placed around the stoma, covering the area of the repair. The mesh was stapled to the peritoneum and transversus abdominis using the SecureStrap stapler. This was done initially laterally to secure the mesh to the lateral peritoneum and abdominal wall. It was then done inferiorly and superiorly to get good security. After this was in place it was done medially with the cut edges of the mesh being loosely approximated medially to get circumferential closure but not tight. Next, the area of the repair was resutured using #1 Prolene which went through the mesh and the muscle and fascia and tied. These sutures were also placed inferiorly and lateral and medial to the repair. This gave added strength to the adherence of the mesh. Irrigation was carried out. There was no constriction of the stoma. The small bowel was placed in the peritoneal cavity. Nasogastric tube was not placed. The fascia and peritoneum were closed with running #1 Prolene. Subcutaneous tissue was irrigated and closed with 2-0 Monocryl. Skin was closed with nadiya. Dressing was placed. The sutures were then taken out of the stoma, and the stoma had good viability and was patent. A stoma appliance was placed. The patient tolerated the procedure well. He was awakened, transferred to a bed and taken to the postanesthetic care unit in stable, satisfactory condition. LCS:charles Job ID: [id number] Doc ID: [id number] Rolo Cole M.D.
== END 2017-01-12 14:55 | disposition home or self-care (01) | DRG 354 ==
LOC: MEDSUR 05:01
PROVIDERS: ADMIT Family Medicine Adult Medicine; ATTEND Family Medicine Adult Medicine

== ENCOUNTER 2018-12-12 12:03 | Inpatient (IN) ==
[2018-12-12] MEDS ORDERED: FUROSEMIDE 40 MG/4 ML VIAL IV ONE (12:47)
[2018-12-12 12:59] LABS: Basophils # (Auto) 0 K/mcL (0.0-0.3); Basophils % (Auto) 0.3 % (0.0-2.0); Eosinophils # (Auto) 0.3 K/mcL (0.0-0.7); Eosinophils % (Auto) 4.3 % (0.0-7.0); Granulocytes % (Auto) 75.3 % (38.0-78.0); Lymphocytes # (Auto) 0.8 K/mcL (1.5-4.8); Lymphocytes % (Auto) 10.8 % (15.5-49.0); Mean Cell Volume 78.1 fL (80.0-100.0); Mean Corpuscular HGB Conc 33.1 g/dL (31.0-36.0); Monocytes # (Auto) 0.7 K/mcL (0.1-0.9); Monocytes % (Auto) 9.3 % (1.0-12.0); Platelet Count 584 K/mcL (140-440); Red Cell Distribution Width 16.6 % (11.5-14.5)
[2018-12-12 13:18] LABS: proBNP 301.7 pg/ml (0-125)
[2018-12-12 13:20] LABS: ALT/SGPT 22 U/l (0-40); Albumin 3.2 gm/dL (3.2-5.2); Albumin/Globulin Ratio 0.8 (1.0-2.3); Alkaline Phosphatase 90 U/L (39-117); Blood Urea Nitrogen 38 mg/dl (8-23)
--- NOTE | 2018-12-12 13:33 | Emergency Department Note ---
Weakness HPI - General Chief complaint: Weakness Stated complaint: increasing swelling to feet, pain to coccyx wounds Time Seen by Provider: 12/12/18 12:26 Source: patient, other (Friend) Mode of arrival: wheelchair Limitations: no limitations - History of Present Illness HPI Narrative: 73-year-old male comes in complaining of significant weakness increasing over the last month. He also reports worsening pain in his sacral decubitus ulcer. He was seeing wound care for this but stopped several weeks ago. Question of fever. He is also had some swelling worsening in his legs. These problems have been going on for quite some time (years) but have become worse here in the last week. Denies nausea vomiting diarrhea shortness of breath. His friend says that his memory has become much worse over the last month and he has been unable to get up and move around. Significant weakness. He does get home health care during the day but no evidence there at night. Notes recent fall without significant injury He denies any recent GI history but he does have an ostomy bag in place from previous colon cancer noted. Apparently he saw Dr. Robles [facility] but more recently saw Dr. Cole, our general surgeon - Related Data Home Medications Medication Instructions Recorded Confirmed multivitamin tablet 1 tab PO QDAY 11/04/17 12/12/18 Docusate Sodium [Colace] 100 mg PO DAILY 12/12/18 12/12/18 Finasteride [Proscar] 5 mg PO DAILY 12/12/18 12/12/18 Furosemide [Lasix] 40 mg PO BID 12/12/18 12/12/18 Gabapentin [Neurontin] 100 mg PO BID 12/12/18 12/12/18 Gabapentin [Neurontin] 300 mg PO TID 12/12/18 12/12/18 Lisinopril [Zestril] 20 mg PO DAILY 12/12/18 12/12/18 Oxybutynin Chloride [Ditropan] 5 mg PO HS 12/12/18 12/12/18 Tamsulosin [Flomax] 0.8 mg PO HS 12/12/18 12/12/18 buPROPion HCL [Bupropion Xl] 150 mg PO DAILY 12/12/18 12/12/18 Previous Rx's Medication Instructions Recorded progesterone SL 40 mg SUBLINGUAL QHS #30 each 03/10/18 oxycodone 5 mg tablet 5 mg PO Q6HP PRN #90 tab 11/23/18 zolpidem 10 mg tablet 10 mg PO HSP PRN #30 tab 11/30/18 Allergies Allergy/AdvReac Type Severity Reaction Status Date / Time No Known Drug Allergies Allergy Verified 11/30/18 13:11 Review of Systems All systems ED: reviewed and negative except as stated. Past Medical History - Past Medical History Attestation: Yes: The following information was validated with the patient. [facility] Narrative: Family History (Last Reviewed 10/27/18 @ 10:34 by Bhargavi Moody CMA) Unknown Alcohol abuse Type 2 diabetes mellitus Son Schizophrenia Medical History (Last Reviewed 10/30/18 @ 15:13 by Rolo Cole MD) Localized edema due to fluid overload (Chronic) Secondary hyperparathyroidism of renal origin (Chronic) Anemia in stage 4 chronic kidney disease (Chronic) Benign hypertension with CKD (chronic kidney disease) stage IV (Chronic) CKD (chronic kidney disease) stage 4, GFR 15-29 ml/min (Chronic) Postoperative ileus (Acute) Fall (Acute) Multiple contusions (Acute) Skin tear of right upper arm without complication (Acute) Cellulitis (Acute) Renal osteodystrophy (Chronic) Vitamin D deficiency (Chronic) Hypervolemia (Chronic) Hyperuricemia (Chronic) Parastomal hernia (Resolved) Cellulitis of hand, right (Acute) Cellulitis (Acute) Cellulitis of scrotum (Acute) Chest pain (Acute) Erectile dysfunction (Chronic) Mass of anus (Chronic) Urinary retention (Chronic) Testosterone deficiency (Chronic) 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) Osteoarthrosis (Chronic) Hypertrophy of prostate with urinary retention (Chronic 02/08/13) Colon malignancy (Resolved) Diabetes mellitus type 2 with neurological manifestations (Resolved) Hyperlipemia (Resolved) Ingrown nail (Resolved) Onychomycosis (Resolved) Past Surgical History (Last Reviewed 10/27/18 @ 10:34 by Bhargavi Moody CMA) History of colonoscopy (Chronic 02/09/09) History of surgery (Chronic 08/31/15) History of hernia surgery (Acute) History of penile implant (Acute) History of colon resection (Resolved) History of colostomy (Resolved) History of total knee arthroplasty (Resolved 05/06/14) Medical history: Reports: cancer (colorectal - with bag ostomy 2008. Status post radiation.), DVT (Posttraumatic, right lower extremity.), DM, hyperlipidemia, hypertension, renal disease, other (recurrent scrotal cellulitis (patient says testicular) and lower extremity cellulitis; recurrenl; enlarged heart. NO DVT. Erectile dysdfuncion). Denies: coronary artery disease, CVA, GERD, myocardial infarction, thyroid disease, TIA Psychiatric history: Reports: anxiety, depression Surgical history ED: Reports: cancer surgery (colostomy/partial (?) colectomy 2007.), cataract (bilat.), herniorrhaphy, knee replacement (Bilateral), other (penile implant.) - Social History smoking status: Former smoker Alcohol use: Reports: Rarely (Occasional wine or beer once per week.) Drug use: Reports: none Physical Exam No acute distress not moving around much however. Normocephalic atraumatic. Conjunctive are clear sclerae white and anicteric. No nasal discharge or congestion. Oropharynx is somewhat dry buccal mucosa. Neck is supple without lymphadenopathy or thyromegaly. Heart is regular rate and rhythm no murmur appreciated. Lungs are clear to auscultation bilaterally without wheezes rales rhonchi or respiratory distress. His lower abdomen is tender especially to the hernia on the right side on the left side he does have an ostomy with formed stool in it does not seem to be leaking or with any problem on that side. However his lower abdomen is generally mildly tender without erythema. His scrotum is edematous but I do not detect a varicocele or hydrocele. Urethra and penis look normal for age. Looking at his backside he does have a sacral ulcer at the buttock cleft it does look a stage I to stage II without significant bleeding . There is some serous drainage but it does not smell particularly foul or look purulent. bilateral lower extremities with +1-2 pitting edema right slightly worse than left. +2 radial pulse. He is alert oriented and can give me reasonable history. Although his friend reports significant memory loss and confabulation I do not see any evidence of confabulation and he seems like a reasonable historian. However I do not have any baseline to compare it with nor have I seen him in the past. That said he does have low blood pressure here and he reports that it is normally low but on his record it shows that he is actually hypertensive with chronic kidney disease history. No dysarthria. Globally weak Limitations: no limitations Course Vital Signs Temperature 97.0 F 12/12/18 12:05 Pulse Rate 93 H 12/12/18 12:05 Respiratory Rate 18 12/12/18 12:05 Blood Pressure 133/80 12/12/18 12:05 Pulse Oximetry (%) 97 12/12/18 12:05 Temperature 97.0 F 12/12/18 12:05 Pulse Rate 78 12/12/18 14:30 Respiratory Rate 12 12/12/18 14:30 Blood Pressure 112/51 12/12/18 14:30 Pulse Oximetry (%) 96 12/12/18 14:30 Weakness - Lab Data Lab results reviewed: Yes I reviewed the patient's lab results. Result diagrams: 12/12/18 12:31 12/12/18 12:31 Lab Results 12/12/18 12/12/18 12/12/18 Range/Units 12:31 12:31 12:31 WBC 7.4 (4.5-11.0) K/mcL RBC 3.40 L (4.50-5.90) M/mcL Hgb 8.8 L (13.5-16.5) g/dL Hct 26.6 L (41.0-55.0) % POC Hct (41.0-55.0) % MCV 78.1 L (80.0-100.0) fL MCH 25.9 L (26.0-34.0) pg MCHC 33.1 (31.0-36.0) g/dL RDW 16.6 H (11.5-14.5) % Plt Count 584 H (140-440) K/mcL MPV 7.3 L (7.4-10.4) fL Gran % 75.3 (38.0-78.0) % Lymph % (Auto) 10.8 L (15.5-49.0) % [place] % (Auto) 9.3 (1.0-12.0) % Eos % (Auto) 4.3 (0.0-7.0) % Baso % (Auto) 0.3 (0.0-2.0) % Gran # 5.6 (1.8-8.0) K/mcL Lymph # (Auto) 0.8 L (1.5-4.8) K/mcL [place] # (Auto) 0.7 (0.1-0.9) K/mcL Eos # (Auto) 0.3 (0.0-0.7) K/mcL Baso # (Auto) 0 (0.0-0.3) K/mcL VBG Lactic Acid (0.5-2.0) mmol/L POC Sodium (133-145) mmol/L Sodium 136 (133-145) mmol/L POC Potassium (3.3-5.1) mmol/L Potassium 4.2 (3.3-5.1) mmol/L POC Chloride (96-108) mmol/L Chloride 98 (96-108) mmol/L Carbon Dioxide 24 (22-30) mmol/L POC Total CO2 (22-30) mmol/L Anion Gap 14.0 (8-16) POC BUN (8-23) mg/dl BUN 38 H (8-23) mg/dl Creatinine 1.9 H (0.7-1.2) mg/dl POC Creatinine (0.7-1.2) mg/dl GFR Calculation 34 Glucose 104 (70-105) mg/dL POC Glucose (70-105) mg/dL Calcium 9.0 (8.6-10.4) mg/dl POC WB Ioniz Calcium (1.16-1.32) mmol/L Magnesium (1.6-2.5) mg/dL Total Bilirubin 0.2 (0.0-1.0) mg/dL AST 13 (0-37) U/l ALT 22 (0-40) U/l Alkaline Phosphatase 90 (39-117) U/L Troponin T < 0.01 (0-0.03) ng/ml NT-Pro-B Natriuret Pep 301.7 H (0-125) pg/ml Total Protein 7.2 (5.9-8.4) gm/dL Albumin 3.2 (3.2-5.2) gm/dL Globulin 4.0 H (2.2-3.7) gm/dL Albumin/Globulin Ratio 0.8 L (1.0-2.3) Urine Color Urine Appearance Urine pH (5.0-9.0) Ur Specific [place] (1.000-1.035) Urine Protein (NEG) mg/dL Urine Glucose (UA) (NEG) mg/dL Urine Ketones (NEG) mg/dL Urine Occult Blood (<0.03) mg/dL Urine Nitrate (NEG) Urine Bilirubin (NEG) mg/dL Urine Urobilinogen (NEG) mg/dL Ur Leukocyte Esterase (NEG) /uL Urine RBC (0-1) /hpf Urine WBC (0-4) /hpf Ur Squamous Epith Cells (0-4) /hpf Urine Bacteria (0) /hpf Hyaline Casts (0-2) /lpf Ur Culture Indicated? 12/12/18 12/12/18 12/12/18 Range/Units 12:31 12:51 13:10 WBC (4.5-11.0) K/mcL RBC (4.50-5.90) M/mcL Hgb (13.5-16.5) g/dL Hct (41.0-55.0) % POC Hct 24.0 L (41.0-55.0) % MCV (80.0-100.0) fL MCH (26.0-34.0) pg MCHC (31.0-36.0) g/dL RDW (11.5-14.5) % Plt Count (140-440) K/mcL MPV (7.4-10.4) fL Gran % (38.0-78.0) % Lymph % (Auto) (15.5-49.0) % [place] % (Auto) (1.0-12.0) % Eos % (Auto) (0.0-7.0) % Baso % (Auto) (0.0-2.0) % Gran # (1.8-8.0) K/mcL Lymph # (Auto) (1.5-4.8) K/mcL [place] # (Auto) (0.1-0.9) K/mcL Eos # (Auto) (0.0-0.7) K/mcL Baso # (Auto) (0.0-0.3) K/mcL VBG Lactic Acid 1.1 (0.5-2.0) mmol/L POC Sodium 136 (133-145) mmol/L Sodium (133-145) mmol/L POC Potassium 4.2 (3.3-5.1) mmol/L Potassium (3.3-5.1) mmol/L POC Chloride 98 (96-108) mmol/L Chloride (96-108) mmol/L Carbon Dioxide (22-30) mmol/L POC Total CO2 24 (22-30) mmol/L Anion Gap (8-16) POC BUN 33 H (8-23) mg/dl BUN (8-23) mg/dl Creatinine (0.7-1.2) mg/dl POC Creatinine 2.0 H (0.7-1.2) mg/dl GFR Calculation Glucose (70-105) mg/dL POC Glucose 102 (70-105) mg/dL Calcium (8.6-10.4) mg/dl POC WB Ioniz Calcium 1.13 L (1.16-1.32) mmol/L Magnesium 2.0 (1.6-2.5) mg/dL Total Bilirubin (0.0-1.0) mg/dL AST (0-37) U/l ALT (0-40) U/l Alkaline Phosphatase (39-117) U/L Troponin T (0-0.03) ng/ml NT-Pro-B Natriuret Pep (0-125) pg/ml Total Protein (5.9-8.4) gm/dL Albumin (3.2-5.2) gm/dL Globulin (2.2-3.7) gm/dL Albumin/Globulin Ratio (1.0-2.3) Urine Color Urine Appearance Urine pH (5.0-9.0) Ur Specific [place] (1.000-1.035) Urine Protein (NEG) mg/dL Urine Glucose (UA) (NEG) mg/dL Urine Ketones (NEG) mg/dL Urine Occult Blood (<0.03) mg/dL Urine Nitrate (NEG) Urine Bilirubin (NEG) mg/dL Urine Urobilinogen (NEG) mg/dL Ur Leukocyte Esterase (NEG) /uL Urine RBC (0-1) /hpf Urine WBC (0-4) /hpf Ur Squamous Epith Cells (0-4) /hpf Urine Bacteria (0) /hpf Hyaline Casts (0-2) /lpf Ur Culture Indicated? 12/12/18 Range/Units 13:23 WBC (4.5-11.0) K/mcL RBC (4.50-5.90) M/mcL Hgb (13.5-16.5) g/dL Hct (41.0-55.0) % POC Hct (41.0-55.0) % MCV (80.0-100.0) fL MCH (26.0-34.0) pg MCHC (31.0-36.0) g/dL RDW (11.5-14.5) % Plt Count (140-440) K/mcL MPV (7.4-10.4) fL Gran % (38.0-78.0) % Lymph % (Auto) (15.5-49.0) % [place] % (Auto) (1.0-12.0) % Eos % (Auto) (0.0-7.0) % Baso % (Auto) (0.0-2.0) % Gran # (1.8-8.0) K/mcL Lymph # (Auto) (1.5-4.8) K/mcL [place] # (Auto) (0.1-0.9) K/mcL Eos # (Auto) (0.0-0.7) K/mcL Baso # (Auto) (0.0-0.3) K/mcL VBG Lactic Acid (0.5-2.0) mmol/L POC Sodium (133-145) mmol/L Sodium (133-145) mmol/L POC Potassium (3.3-5.1) mmol/L Potassium (3.3-5.1) mmol/L POC Chloride (96-108) mmol/L Chloride (96-108) mmol/L Carbon Dioxide (22-30) mmol/L POC Total CO2 (22-30) mmol/L Anion Gap (8-16) POC BUN (8-23) mg/dl BUN (8-23) mg/dl Creatinine (0.7-1.2) mg/dl POC Creatinine (0.7-1.2) mg/dl GFR Calculation Glucose (70-105) mg/dL POC Glucose (70-105) mg/dL Calcium (8.6-10.4) mg/dl POC WB Ioniz Calcium (1.16-1.32) mmol/L Magnesium (1.6-2.5) mg/dL Total Bilirubin (0.0-1.0) mg/dL AST (0-37) U/l ALT (0-40) U/l Alkaline Phosphatase (39-117) U/L Troponin T (0-0.03) ng/ml NT-Pro-B Natriuret Pep (0-125) pg/ml Total Protein (5.9-8.4) gm/dL Albumin (3.2-5.2) gm/dL Globulin (2.2-3.7) gm/dL Albumin/Globulin Ratio (1.0-2.3) Urine Color Straw Urine Appearance Clear Urine pH 6.0 (5.0-9.0) Ur Specific [place] 1.009 (1.000-1.035) Urine Protein Neg (NEG) mg/dL Urine Glucose (UA) Negative (NEG) mg/dL Urine Ketones Neg (NEG) mg/dL Urine Occult Blood 0.03 A (<0.03) mg/dL Urine Nitrate Neg (NEG) Urine Bilirubin Neg (NEG) mg/dL Urine Urobilinogen Neg (NEG) mg/dL Ur Leukocyte Esterase Neg (NEG) /uL Urine RBC < 1 (0-1) /hpf Urine WBC 1 (0-4) /hpf Ur Squamous Epith Cells 0 (0-4) /hpf Urine Bacteria 0 (0) /hpf Hyaline Casts 1 (0-2) /lpf Ur Culture Indicated? No Hemoccult from his ostomy bag is negative - Radiology Data Radiology results reviewed: Yes I reviewed the patient's radiology results. CT scan of the abdomen pelvis shows no acute abnormality Disposition Pt seen by ELECTROLYSIS NEEDLE OPERATOR/PA only: No Clinical Impression: Upper GI bleed, CKD (chronic kidney disease) stage 3, GFR 30-59 ml/min Hypotension Qualifiers: Hypotension type: unspecified hypotension type Qualified Code(s): I95.9 - Hypotension, unspecified Decubital ulcer Qualifiers: Pressure injury location: sacral region Pressure injury stage: stage 2 Qualified Code(s): L89.152 - Pressure ulcer of sacral region, stage 2 CHF (congestive heart failure) Qualifiers: Heart failure type: unspecified Heart failure chronicity: acute on chronic Qualified Code(s): I50.9 - Heart failure, unspecified Summary: Workup started with laboratory and CT scan abdomen and pelvis for causes of weakness . Gave extra dose of furosemide for lymphedema versus CHF. Put Lanier in at patient request as he is not able to move around well to urinate frequently on furosemide Workup essentially negative except for new anemia with a CBC showing hemoglobin of 8.8 with a low MCV. This is a new finding compared with recent labs from 2 months ago so concern is for acute upper GI bleed despite Hemoccult negative. Blood pressure is low as well. Urinating well into the Lanier bag with clear urine. Decubitus ulcer does not look infected nor does he have elevated white count or fever consistent with infection Discussed case with Dr. Mejia, corporate treasurer, who agreed to consult on the patient and do endoscopy for possible upper GI bleed. His low hemoglobin and elevated BUN are not unexpected finding as patient was not complaining of nausea vomiting nor diarrhea stool We will start Protonix drip. Discussed case with Dr. Montero, hospitalist who agreed to accept the patient Disposition: Xfer As Inpt ([facility]) Condition: Fair Referrals: Charlie Dowling PA-C [Primary Care Provider] -
[2018-12-12 14:14] LABS: Appearance,Urine CLEAR; Bacteria,Urine 0 /hpf (0); Bilirubin,Urine NEG (NEG); Color,Urine STRAW; Glucose,Urine (UA) NEGATIVE (NEG); Leukocyte Esterase,Urine NEG /uL (NEG); Protein,Urine NEG (NEG); Specific Gravity,Urine 1.009 (1.000-1.035); Urine Blood 0.03 mg/dL (<0.03); Urine Hyaline Cast 1 /lpf (0-2); Urine RBC < 1 /hpf (0-1); Urine Squamous Epithelial Cell 0 /hpf (0-4); Urine WBC 1 /hpf (0-4); Urobilinogen,Urine NEG (NEG)
[2018-12-12] MEDS ORDERED: PANTOPRAZOLE 40 MG VIAL IV ONE (15:22)
[2018-12-12] MEDS ORDERED: PANTOPRAZOLE 80 MG in 0.9 % SODIUM CHLORIDE 100 ML IV SCH (15:30)
[2018-12-12] MEDS ORDERED: ACETAMINOPHEN 325 MG TABLET PO PRN (16:52)
[2018-12-12] MEDS ORDERED: NALOXONE HCL 0.4 MG/ML VIAL IV PRN (16:52)
[2018-12-12] MEDS ORDERED: ONDANSETRON 4 MG/2 ML VIAL IV PRN (16:52)
[2018-12-12 17:35] LABS: Ferritin 971.3 ng/ml (30-400)
--- NOTE | 2018-12-12 17:55 | XRay Report ---
CLINICAL INFORMATION: CHF COMPARISON: 04/10/2018. FINDINGS: The heart size, mediastinum and pulmonary vessels are unremarkable. The lungs are clear. There are no effusions. The bones and soft tissues are within normal limits. IMPRESSION: Normal chest. Interpreted and Authenticated by: Mitchell eWi 12/12/18
[2018-12-12 17:56] LABS: Vitamin B12 > 2000 pg/ml (232-1245)
--- NOTE | 2018-12-12 18:17 | Internal Med History&Physical ---
Medical - H&P: HPI Patient information: Note initiated : 12/12/18 at 6:05 pm Service Date, if different from initiated Date: [] Patient: Mainor Moran a 73 y/o M admitted on 12/12/18 for increasing swelling to feet, pain to coccyx wounds. Chief Complaint: [] History of present illness: Mr. Moran is a 73 year old M with multiple medical issues, lives home with help of home health. The patient notes for the last 1 week he has been progressively getting weak. It is difficult for him to ambulate, normal activities that he could do are now difficult to do because of progressive shortness of breath. Beyond weakness and progressive shortness of breath the patient also admits to having increased swelling in his lower extremities. He has chronic lower extremity swelling that waxes and wanes, that has been going on for the last 6 months however over the last week or 2 the swelling has worsened. He also complaints of pain in the coccys and the groins The patient denies any other complaints or concerns. According to the family of friends who brought the patient in and was spoke with the ER provider the doe rivera is also been more confused and not himself. The patient denies any bleeding from any site, no black stools or blood in the stools. He denies any abdominal pain he denies any cough chest pain headache dizziness changes in vision changes in hearing difficulty in swallowing denies any new skin rashes joint pains or easy bruising. In the emergency room on presentation patient was afebrile temperature 97, heart rate 80 blood pressure 119/43 respirations 14 saturating 97% on room air. Hemoglobin 8.8, MCV 78, WBC count 7.4, platelets 584. Sodium 136 potassium 4.2 carbonate 24 creatinine 1.9 which is at baseline glucose 104. NT proBNP is 380 The patient received IV Lasix 40, in the emergency room. Subsequent to this the blood pressure dropped, and gradually came back up again however given the drop in hemoglobin and drop in blood pressure there was a concern for upper GI bleed. The ED physician thought that the patient may have bled in the abdomen. Fecal occult stool is negative. He called the GI doctor who would be consulting for endoscopy. Given weakness, shortness of breath on exertion possible CHF, possible GI bleed the patient is being admitted as observation to the hospital Chest x-ray is negative CT abdomen and pelvis without contrast was reported as negative. (official report pending) On reviewing his PCPs note at the end of October it seems the fatigue and w eakness has been going on since that time. All systems: reviewed and no additional remarkable complaints except as stated ( PER hpi rest neg) Medical - H&P: PMH Medical history: Medical History (Last Reviewed 10/30/18 @ 15:13 by Rolo Cole MD) Localized edema due to fluid overload (Chronic) Secondary hyperparathyroidism of renal origin (Chronic) Anemia in stage 4 chronic kidney disease (Chronic) Benign hypertension with CKD (chronic kidney disease) stage IV (Chronic) CKD (chronic kidney disease) stage 4, GFR 15-29 ml/min (Chronic) Postoperative ileus (Acute) Fall (Acute) Multiple contusions (Acute) Skin tear of right upper arm without complication (Acute) Cellulitis (Acute) Renal osteodystrophy (Chronic) Vitamin D deficiency (Chronic) Hypervolemia (Chronic) Hyperuricemia (Chronic) Parastomal hernia (Resolved) Cellulitis of hand, right (Acute) Cellulitis (Acute) Cellulitis of scrotum (Acute) Chest pain (Acute) Erectile dysfunction (Chronic) Mass of anus (Chronic) Urinary retention (Chronic) Testosterone deficiency (Chronic) 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) Osteoarthrosis (Chronic) Hypertrophy of prostate with urinary retention (Chronic 02/08/13) Colon malignancy (Resolved) Diabetes mellitus type 2 with neurological manifestations (Resolved) Hyperlipemia (Resolved) Ingrown nail (Resolved) Onychomycosis (Resolved) Surgical history: Past Surgical History (Last Reviewed 10/27/18 @ 10:34 by Bhargavi Moody CMA) History of colonoscopy (Chronic 02/09/09) History of surgery (Chronic 08/31/15) History of hernia surgery (Acute) History of penile implant (Acute) History of colon resection (Resolved) History of colostomy (Resolved) History of total knee arthroplasty (Resolved 05/06/14) Pertinent family history: Family History (Last Reviewed 10/27/18 @ 10:34 by Bhargavi Moody CMA) Unknown Alcohol abuse Type 2 diabetes mellitus Son Schizophrenia Medical - H&P: Meds Home Medications Medication Instructions Recorded Confirmed Type multivitamin tablet 1 tab PO QDAY 11/04/17 12/12/18 History progesterone SL 40 mg SUBLINGUAL QHS #30 each 03/10/18 12/12/18 Rx oxycodone 5 mg tablet 5 mg PO Q6HP PRN #90 tab 11/23/18 12/12/18 Rx zolpidem 10 mg tablet 10 mg PO HSP PRN #30 tab 11/30/18 12/12/18 Rx Docusate Sodium [Colace] 100 mg PO DAILY 12/12/18 12/12/18 History Finasteride [Proscar] 5 mg PO DAILY 12/12/18 12/12/18 History Furosemide [Lasix] 40 mg PO BID 12/12/18 12/12/18 History Gabapentin [Neurontin] 100 mg PO BID 12/12/18 12/12/18 History Gabapentin [Neurontin] 300 mg PO TID 12/12/18 12/12/18 History Lisinopril [Zestril] 20 mg PO DAILY 12/12/18 12/12/18 History Oxybutynin Chloride [Ditropan] 5 mg PO HS 12/12/18 12/12/18 History Tamsulosin [Flomax] 0.8 mg PO HS 12/12/18 12/12/18 History buPROPion HCL [Bupropion Xl] 150 mg PO DAILY 12/12/18 12/12/18 History Allergies Allergy/AdvReac Type Severity Reaction Status Date / Time No Known Drug Allergies Allergy Verified 11/30/18 13:11 Medical - H&P: Exam - Constitutional Vitals: Temp Pulse Resp BP Pulse Ox 98.5 F 76 20 159/86 99 12/12/18 16:52 12/12/18 16:50 12/12/18 16:52 12/12/18 16:52 12/12/18 16:52 Exam: GENERAL: The patient is a well-developed, well-nourished in no apparent distress. Is alert and oriented x3. VITAL SIGNS: Reviewed and as noted elsewhere. HEENT: Head is normocephalic and atraumatic. Extraocular muscles are intact. Pupils are equal, round, and reactive to light. Nares appeared normal. Mouth appears any without lesions. Mucous membranes are moist. NECK: Normal to inspection, Supple, No lymphadenopathy or thyromegaly. LUNGS: Air entry equal on both sides, no wheezing, crackles or rhonchi noted. No accessory muscles of respiration HEART: Regular rate and rhythm normal, S1 and S2 heard, no Gallop, S3 or Rub Noted, No Gross murmur heard. ABDOMEN: Soft, nontender, and nondistended. Positive bowel sounds. No hepatosplenomegaly was noted. EXTREMITIES: No cyanosis, clubbing, rash, lesions,edema +++ NEUROLOGIC: Cranial nerves II through XII are grossly intact. Motor and Sensory System Grossly Intact PSYCHIATRIC: Normal affect, Normal Mood. Appropriate Behavior. SKIN: No ulceration or wounds noted, No jaundice, No rash noted. Medical - H&P: Reslt - Labs CBC & Chem 7: 12/12/18 12:31 12/12/18 12:31 Labs: Short CBC 12/12/18 Range/Units 12:31 WBC 7.4 (4.5-11.0) K/mcL Hgb 8.8 L (13.5-16.5) g/dL Hct 26.6 L (41.0-55.0) % Plt Count 584 H (140-440) K/mcL BMP 12/12/18 12:31 Sodium 136 Potassium 4.2 Chloride 98 Carbon Dioxide 24 BUN 38 H Creatinine 1.9 H Glucose 104 Calcium 9.0 Cardiac Enzymes 12/12/18 Range/Units 12:31 Troponin T < 0.01 (0-0.03) ng/ml Liver Function 12/12/18 Range/Units 12:31 Total Bilirubin 0.2 (0.0-1.0) mg/dL AST 13 (0-37) U/l ALT 22 (0-40) U/l Alkaline Phosphatase 90 (39-117) U/L Albumin 3.2 (3.2-5.2) gm/dL Urine 12/12/18 Range/Units 13:23 Urine Color Straw Urine Appearance Clear Urine pH 6.0 (5.0-9.0) Ur Specific [place] 1.009 (1.000-1.035) Urine Protein Neg (NEG) mg/dL Urine Glucose (UA) Negative (NEG) mg/dL Medical - H&P: A/P - Narrative A/P Narrative: A/P Microcytic Anemia CKD Fatigue CHF exacerbation? h/o Colon cancer s/o colostomy, Groin pain/ Cocyx pain HTN Peripheral arterial disease Peripheral neuropathy lumbar stenosis BPH Testosterone def chronic wound, sacral Plan admit as obs I doublt if pt has acute GI bleed, BUN is not elevated compared to previous BUN, and fecal occult was negative. GI has been consulted by the ED provider will await further evaluation. On my evaluation patient had no evidence of CHF exacerbation, JVP was not raised, there was no crackles on exam, patient did have edema in the lower extremity, no increased oxygen needs. However patient had already received Lasix in the ED and had peed out around 2 L. I will check TSH, send anemia workup, resume home medications as appropriate Get rehab involved. Patient did not turn around for me to evaluate his wound however the ED provider did look at it and noted that it was not looking infected. The patient does follow with wound care, I will reviewed the images of the wounds admission. Continue IV Lasix for now, monitor on telemetry given concern for GI bleed IV PPI Resume home medications as appropriate DVT-SCD Full code Social History - Social History marital status: pets and animals: Yes - Pets pets and animals: cat(s), dog(s) - Tobacco smoking status: Former smoker - Tobacco Type tobacco type: cigars - Alcohol alcohol intake frequency: holiday/special occasion only - Substance use substance use type: marijuana
[2018-12-12 18:24] LABS: Iron 21 mcg/dl (61-157); Transferrin % Saturation 13 % (20-50); Unsaturated Iron Binding 138 mcg/dL (112-346)
[2018-12-12] MEDS ORDERED: ZOLPIDEM 5 MG TABLET PO PRN (18:27)
--- NOTE | 2018-12-12 18:47 | Cat Scan Report ---
CLINICAL INFORMATION: Lower abdominal and groin pain COMPARISON: 12/26/2016 TECHNIQUE: 0.625 mm helical slices were obtained from the mid heart through the subtrochanteric regions. Following reconstruction, 2.5 mm sagittal, coronal and axial reformatted images were processed and reviewed at bone and soft tissue windows.The exam was performed using radiation dose optimization techniques including, but not limited to, automated exposure control, adjustment of the mA and/or kV according to patient size and use of iterative reconstruction technique. FINDINGS: Lung bases show minimal scattered scarring. No infiltrates or effusions. The visualized heart is grossly normal. Images through the abdomen show the noncontrasted liver, gallbladder and bile ducts, both kidneys, adrenal glands, spleen, pancreas and aorta to be normal in size configuration and attenuation without focal lesion. Images of the pelvis show penile prosthesis in stable satisfactory position. Prostate and urinary bladder are unremarkable. Lanier catheter is properly positioned within a decompressed bladder. There is a large (15 cm (midline hernia containing multiple loops of nonincarcerated small bowel. Partial sigmoid colectomy with colostomy of the distal descending colon in the left lower quadrant unremarkable. The distal Iglesias's pouch appears unremarkable. There is moderate soft tissue inflammation in the symphysis pubis region with symphysis pubis osseous erosion compatible with infection including osteomyelitis. This is a new finding from previous study. Moderate degenerative changes in the SI joints are noted. No other osseous abnormality. IMPRESSION: 1. 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 There is a new finding from prior CT. 2. Large (15 cm) anterior abdominal wall hernia midline containing multiple loops of nonincarcerated small bowel. Interpreted and Authenticated by: Mitchell Wei 12/12/18
[2018-12-12] MEDS: PANTOPRAZOLE 40 MG VIAL IV SCH (19:49)
[2018-12-12] MEDS: oxyCODONE HCL 5 MG TABLET PO PRN (19:50)
[2018-12-12] MEDS: GABAPENTIN 400 MG CAPSULE PO SCH (20:56)
[2018-12-12] MEDS: FUROSEMIDE 40 MG/4 ML VIAL IV SCH (20:58)
[2018-12-12] MEDS: 0.9 % SODIUM CHLORIDE 10 ML SYRINGE IV SCH (20:59)
[2018-12-12] MEDS ORDERED: PROGESTERONE SL SCH (21:00)
[2018-12-12] MEDS ORDERED: OXYBUTYNIN CHLORIDE 5 MG TABLET PO SCH (21:00)
[2018-12-12] MEDS ORDERED: GABAPENTIN 100 MG CAPSULE PO SCH (21:00)
[2018-12-12] MEDS ORDERED: TAMSULOSIN 0.4 MG CAPSULE PO SCH (21:00)
[2018-12-13 05:26] LABS: Basophils # (Auto) 0 K/mcL (0.0-0.3); Basophils % (Auto) 0.3 % (0.0-2.0); Eosinophils # (Auto) 0.3 K/mcL (0.0-0.7); Eosinophils % (Auto) 4.2 % (0.0-7.0); Granulocytes % (Auto) 76.5 % (38.0-78.0); Lymphocytes # (Auto) 0.8 K/mcL (1.5-4.8); Lymphocytes % (Auto) 11.3 % (15.5-49.0); Mean Cell Volume 78.9 fL (80.0-100.0); Monocytes # (Auto) 0.5 K/mcL (0.1-0.9); Monocytes % (Auto) 7.7 % (1.0-12.0); Platelet Count 600 K/mcL (140-440); RBC 3.28 M/mcL (4.50-5.90); Red Cell Distribution Width 16.2 % (11.5-14.5)
[2018-12-13 05:45] LABS: ALT/SGPT 20 U/l (0-40); Albumin/Globulin Ratio 0.8 (1.0-2.3); Alkaline Phosphatase 84 U/L (39-117); Bilirubin,Direct < 0.2 mg/dL (0.0-0.3); Blood Urea Nitrogen 35 mg/dl (8-23); Gamma Glutamyl Transpeptidase 36 U/L (8-61)
[2018-12-13] MEDS: 0.9 % SODIUM CHLORIDE 10 ML SYRINGE IV SCH ×3 (05:48→20:20)
[2018-12-13] MEDS ORDERED: fentaNYL 100 MCG/2 ML VIAL IV ONE (08:35)
[2018-12-13] MEDS ORDERED: MIDAZOLAM 2 MG/2 ML VIAL IV ONE (08:35)
[2018-12-13] MEDS ORDERED: FINASTERIDE 5 MG TABLET PO SCH (09:00)
[2018-12-13] MEDS ORDERED: DOCUSATE SODIUM 100 MG CAPSULE PO SCH (09:00)
[2018-12-13] MEDS ORDERED: MULTIVIT,THER IRON,CA,FA & MIN 1 TABLET PO SCH (09:00)
[2018-12-13] MEDS ORDERED: VANCOMYCIN 1,500 MG in 0.9 % SODIUM CHLORIDE 500 ML IV SCH (09:00)
[2018-12-13] MEDS ORDERED: buPROPion 150 MG TAB.XL.24H PO SCH (09:00)
[2018-12-13] MEDS ORDERED: VANCOMYCIN PER PHARMACY IV SCH ×2 (09:01→13:01)
[2018-12-13] MEDS ORDERED: CEFEPIME 1 GM VIAL IV SCH (09:15)
[2018-12-13] MEDS ORDERED: LIDOCAINE 1% 20 ML VIAL SQ ONE (09:17)
[2018-12-13] MEDS ORDERED: THIAMINE 100 MG in 0.9 % SODIUM CHLORIDE 50 ML IV ONE (09:32)
[2018-12-13] MEDS: oxyCODONE HCL 5 MG TABLET PO PRN ×2 (12:33→20:20)
[2018-12-13] MEDS: FUROSEMIDE 40 MG/4 ML VIAL IV SCH (12:39)
[2018-12-13] MEDS: PANTOPRAZOLE 40 MG VIAL IV SCH ×2 (12:40→17:54)
[2018-12-13] MEDS: GABAPENTIN 400 MG CAPSULE PO SCH ×2 (12:45→20:16)
[2018-12-13] MEDS ORDERED: NALOXONE HCL 0.4 MG/ML VIAL IV PRN (13:01)
[2018-12-13] MEDS ORDERED: ACETAMINOPHEN 325 MG TABLET PO PRN (13:01)
[2018-12-13] MEDS ORDERED: ONDANSETRON 4 MG/2 ML VIAL IV PRN (13:01)
--- NOTE | 2018-12-13 13:29 | Cat Scan Report ---
CLINICAL INFORMATION: Osteolytic destruction symphysis pubis and surrounding soft tissues. Evaluate for infection TECHNIQUE: The procedure and risks including the possibility of bleeding, infection and inadequate tissue sampling were explained to the patient. He understood and wished to proceed. Conscious sedation was administered. The patient was administered a total of 2 mg of versed and 50 mcg of fentanyl intravenously in divided dosages prior to, and during, the procedure. Blood pressure and pulse oximetry were monitored and he maintained consciousness during the procedure. Total sedation time: 45 minutes. With the patient supine on the CT table, the lesion was first CT localized. Skin overlying the lesion was marked, prepped and locally anesthetized with 1% lidocaine using a 25-gauge needle to the level of the symphysis pubis. A 17-gauge Temno needle was then advanced under CT guidance to the destroyed symphysis pubis and, through this site, an 18-gauge Temno needle was used to obtain seven core samples. Two samples each were sent in aerobic and anaerobic culture bottles and the remaining were placed in formalin. The samples were sent to laboratory for both culture and histologic analysis. Postprocedure scanning shows no hemorrhage or other complication. Patient tolerated procedure well without significant discomfort IMPRESSION: CT-guided deep bone biopsy of the symphysis pubis and surrounding soft tissues. Culture, sensitivity and pathology are pending. No apparent complication. Interpreted and Authenticated by: Mitchell Wei 12/13/18
--- NOTE | 2018-12-13 13:30 | Internal Med Progress Note ---
Medical - PN: Subj Patient information: Note initiated : 12/13/18 at 1:27 pm Service Date, if different from initiated Date: [] Patient: Mainor Moran a 73 y/o M admitted on 12/12/18 for increasing swelling to feet, pain to coccyx wounds. Chief Complaint: [] Interval history: Mr. Moran is a 73 year old M with multiple medical issues, lives home with help of home health. The patient notes for the last 1 week he has been progressively getting weak. It is difficult for him to ambulate, normal activities that he could do are now difficult to do because of progressive shortness of breath. Beyond weakness and progressive shortness of breath the patient also admits to having increased swelling in his lower extremities. He has chronic lower extremity swelling that waxes and wanes, that has been going on for the last 6 months however over the last week or 2 the swelling has worsened. He also complaints of pain in the coccys and the groins The patient denies any other complaints or concerns. According to the family of friends who brought the patient in and was spoke with the ER provider the patient is also been more confused and not himself. The patient denies any bleeding from any site, no black stools or blood in the stools. He denies any abdominal pain he denies any cough chest pain headache dizziness changes in vision changes in hearing difficulty in swallowing denies any new skin rashes joint pains or easy bruising. In the emergency room on presentation patient was afebrile temperature 97, heart rate 80 blood pressure 119/43 respirations 14 saturating 97% on room air. Hemoglobin 8.8, MCV 78, WBC count 7.4, platelets 584. Sodium 136 potassium 4.2 carbonate 24 creatinine 1.9 which is at baseline glucose 104. NT proBNP is 380 The patient received IV Lasix 40, in the emergency room. Subsequent to this the blood pressure dropped, and gradually came back up again however given the drop in hemoglobin and drop in blood pressure there was a concern for upper GI bleed. The ED physician thought that the patient may have bled in the abdomen. Fecal occult stool is negative. He called the GI doctor who would be consulting for endoscopy. Given weakness, shortness of breath on exertion possible CHF, possible GI bleed the patient is being admitted as observation to the hospital Chest x-ray is negative CT abdomen and pelvis without contrast was reported as negative. (official rep ort pending) On reviewing his PCPs note at the end of October it seems the fatigue and weakness has been going on since that time. 12/13 Patient seen and examined, no acute overnight events. The patient denies any new complaints or concerns. I spoke at length with the patient's friend who notes that the patient usually lives at home does not go out sits in his chair of bed all day long. He is noncompliant with his dietary restrictions. He also has memory issues and sometimes just confabulates. Denies any history of alcohol use. Patient's labs are stable, hemoglobin is stable. 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 Patient had a bone biopsy and bone culture sent today. I have started the patient on vancomycin and cefepime. Infectious disease will be consulted The patient will not have an endoscopy today, as hemoglobin is stable probably tomorrow. Start the patient on liquid diet for now Pertinent ROS: Denies headache, dizziness Denies chest pain, palpitations Denies cough or shortness of breath Denies abdominal pain, nausea or vomiting. - Constitutional Vitals: Vital Signs Temp Pulse Resp BP Pulse Ox 97.7 F 72 16 117/60 99 12/13/18 12:00 12/13/18 04:53 12/13/18 12:00 12/13/18 12:00 12/13/18 12:00 Period Temp Pulse Resp BP Sys/Healy Pulse Ox Last 24 Hr 97.0 F-99 F 65-84 9-21 83-159/41-86 95-99 Intake and Output 12/12/18 12/13/18 12/13/18 21:59 05:59 13:59 Intake Total 37 / 377 340 / 377 Output Total 1999 / 4500 2500 / 4500 Balance -1962 / -4122 -2159 / Weight 256 lb 8 oz Intake & Output: Intake & Output 12/12/18 12/13/18 12/13/18 21:59 05:59 13:59 Intake Total 37 / 377 340 / 377 Output Total 1999 / 4500 2500 / 4500 Balance -1962 / -2159 / -4122 Weight 256 lb 8 oz Intake: IV 37 / 37 Protonix 80 mg In Sodium 10 / 10 Chloride 0.9% 100 ml @ 8 MG/HR 10 mls/hr IV Q10H [facility] Rx#: [id number] Oral 340 / 340 Output: Urine Catheter Amount 2000 / 4500 2500 / 4500 Other: Urine Appearance Clear Uretheral (Lanier) Clear Urine Color Light Melinda Uretheral ([place]an[place]) Pale Exam: Constitutional; Afebrile, cooperative, alert, not in distress. Respiratory system: Air Entry equal on both sides, No crackles or wheezing, no rhonchi. CVS- Rate rhythm regular, S1,S2 heard, no gallop, no rub. Abdomen- Soft nontender abdomen, no organomegaly, no tenderness, no guarding or rigidity, RESEARCH ASST- AOOx3, moving all extremities, no gross focal deficit noted. Medical - PN: Obj Da - Labs CBC & Chem 7: 12/13/18 04:08 12/13/18 04:08 Labs: Abnormal Lab Results 12/13/18 12/13/18 12/13/18 04:08 04:08 04:08 RBC 3.28 L Hgb 8.6 L Hct 25.9 L POC Hct MCV 78.9 L MCH RDW 16.2 H Plt Count 600 H MPV 7.2 L Lymph % (Auto) 11.3 L Lymph # (Auto) 0.8 L ESR PT 15.3 H INR 1.2 H POC BUN BUN 35 H Creatinine 2.0 H POC Creatinine Uric Acid 10.0 H POC WB Ioniz Calcium Iron TIBC Transferrin % Sat Ferritin C-Reactive Protein NT-Pro-B Natriuret Pep Albumin 3.0 L Globulin 4.0 H Albumin/Globulin Ratio 0.8 L Vitamin B12 Urine Occult Blood 12/12/18 12/12/18 12/12/18 13:23 13:10 13:10 RBC Hgb Hct POC Hct MCV MCH RDW Plt Count MPV Lymph % (Auto) Lymph # (Auto) ESR > 120 H PT INR POC BUN BUN Creatinine POC Creatinine Uric Acid POC WB Ioniz Calcium Iron TIBC Transferrin % Sat Ferritin C-Reactive Protein 12.5 H NT-Pro-B Natriuret Pep Albumin Globulin Albumin/Globulin Ratio Vitamin B12 Urine Occult Blood 0.03 A 12/12/18 12/12/18 12/12/18 13:10 13:10 12:31 RBC Hgb Hct POC Hct 24.0 L MCV MCH RDW Plt Count MPV Lymph % (Auto) Lymph # (Auto) ESR PT INR POC BUN 33 H BUN 38 H Creatinine 1.9 H POC Creatinine 2.0 H Uric Acid POC WB Ioniz Calcium 1.13 L Iron 21 L TIBC 159 L Transferrin % Sat 13 L Ferritin 971.3 H C-Reactive Protein NT-Pro-B Natriuret Pep 301.7 H Albumin Globulin 4.0 H Albumin/Globulin Ratio 0.8 L Vitamin B12 > 2000 H Urine Occult Blood 12/12/18 12:31 RBC 3.40 L Hgb 8.8 L Hct 26.6 L POC Hct MCV 78.1 L MCH 25.9 L RDW 16.6 H Plt Count 584 H MPV 7.3 L Lymph % (Auto) 10.8 L Lymph # (Auto) 0.8 L ESR PT INR POC BUN BUN Creatinine POC Creatinine Uric Acid POC WB Ioniz Calcium Iron TIBC Transferrin % Sat Ferritin C-Reactive Protein NT-Pro-B Natriuret Pep Albumin Globulin Albumin/Globulin Ratio Vitamin B12 Urine Occult Blood Meds: Medications Acetaminophen (Tylenol) 650 mg PO Q6HP PRN PRN Reason: PAIN/FEVER > 101 Bupropion HCl (Wellbutrin Xl) 150 mg PO DAILY [facility] Cefepime HCl (Maxipime) 1 gm IV DAILY [facility] Docusate Sodium (Colace) 100 mg PO DAILY [facility] Finasteride (Proscar) 5 mg PO DAILY [facility] Furosemide (Lasix) 40 mg IV BIDD [facility] Gabapentin (Neurontin) 300 mg PO DAILY@1500 [facility] Gabapentin (Neurontin) 400 mg PO BID [facility] Vancomycin HCl 1,500 mg/ (Sodium Chloride) 500 mls @ 333.3 mls/hr IV DAILY [facility] Iron Carb/Multivit/Sewer Bricklayer/Folic Acid (Multivitamin W/Minerals) 1 tab PO DAILY [facility] Naloxone HCl (Narcan) 0.1 mg IV Q2MIN PRN PRN Reason: Opiate Reversal Ondansetron HCl (Zofran) 4 mg IV Q4HP PRN PRN Reason: Nausea And Vomiting Oxybutynin Chloride (Ditropan) 5 mg PO HS [facility] Oxycodone HCl (Roxicodone) 5 mg PO Q6HP PRN PRN Reason: Pain Pantoprazole Sodium (Protonix) 40 mg IV BIDAC [facility] Progesterone Sl 40 (Mg Tablet) 1 dose SL HS [facility] Sodium Chloride (Saline Flush) 10 ml IV Q8 [facility] Tamsulosin HCl (Flomax) 0.8 mg PO HS [facility] Vancomycin HCl (Vancomycin Per Pharmacy) 1 order IV UD [facility] Zolpidem Tartrate (Ambien) 5 mg PO HSP PRN PRN Reason: Insomnia Medical - PN: A/P - Time Spent With Patient Total time spent is greater than 50% in coordination of care (as documented) at patient's floor/unit and/or counseling patient: - Narrative A/P Narrative: A/P Microcytic Anemia CKD Fatigue CHF exacerbation? h/o Colon cancer s/o colostomy, Groin pain/ Cocyx pain HTN Peripheral arterial disease Peripheral neuropathy lumbar stenosis BPH Testosterone def chronic wound, sacral Plan admited as inpt due to osteomyelitis Hemoglobin is stable, continue IV PPI, EGD planned for tomorrow Status post bone biopsy and bone culture, IV antibiotics started, blood cultures are negative so far. Infectious disease consulted Transfer the patient to [facility] status, chest x-ray is negative for CHF. Resume home medications as appropriate DVT-SCD Full code Medical - PN: Qual - VTE Deep Vein Thrombosis/Pulmonary Embolism Present on Admission: No
[2018-12-13] MEDS ORDERED: GABAPENTIN 300 MG CAPSULE PO SCH (15:00)
[2018-12-13] MEDS ORDERED: FUROSEMIDE 40 MG/4 ML VIAL IV SCH (16:00)
[2018-12-13] MEDS: GABAPENTIN 300 MG CAPSULE PO SCH (16:29)
[2018-12-13] MEDS: PROGESTERONE SL SCH (20:15)
[2018-12-13] MEDS: FUROSEMIDE 40 MG TABLET PO SCH (20:16)
[2018-12-13] MEDS: TAMSULOSIN 0.4 MG CAPSULE PO SCH (20:16)
[2018-12-13] MEDS: OXYBUTYNIN CHLORIDE 5 MG TABLET PO SCH (20:17)
[2018-12-13] MEDS ORDERED: ZOLPIDEM 5 MG TABLET PO PRN (21:00)
[2018-12-14] MEDS: 0.9 % SODIUM CHLORIDE 10 ML SYRINGE IV SCH ×3 (05:18→20:27)
[2018-12-14 06:21] LABS: Basophils # (Auto) 0 K/mcL (0.0-0.3); Basophils % (Auto) 0.6 % (0.0-2.0); Eosinophils # (Auto) 0.4 K/mcL (0.0-0.7); Eosinophils % (Auto) 4.9 % (0.0-7.0); Granulocytes % (Auto) 76.8 % (38.0-78.0); Lymphocytes # (Auto) 0.8 K/mcL (1.5-4.8); Lymphocytes % (Auto) 10.9 % (15.5-49.0); Mean Cell Volume 79.2 fL (80.0-100.0); Mean Corpuscular HGB Conc 32.4 g/dL (31.0-36.0); Monocytes # (Auto) 0.5 K/mcL (0.1-0.9); Monocytes % (Auto) 6.8 % (1.0-12.0); Platelet Count 586 K/mcL (140-440); RBC 3.28 M/mcL (4.50-5.90); Red Cell Distribution Width 16.4 % (11.5-14.5)
[2018-12-14 06:58] LABS: ALT/SGPT 20 U/l (0-40); Albumin 2.8 gm/dL (3.2-5.2); Albumin/Globulin Ratio 0.7 (1.0-2.3); Alkaline Phosphatase 86 U/L (39-117); Bilirubin,Direct < 0.2 mg/dL (0.0-0.3); Blood Urea Nitrogen 31 mg/dl (8-23); Gamma Glutamyl Transpeptidase 40 U/L (8-61); Uric Acid 9.5 mg/dL (2.5-8.0)
[2018-12-14] MEDS: PANTOPRAZOLE 40 MG VIAL IV SCH ×2 (07:41→17:33)
[2018-12-14] MEDS: CEFEPIME 1 GM VIAL IV SCH (12:03)
[2018-12-14] MEDS: VANCOMYCIN 1,500 MG in 0.9 % SODIUM CHLORIDE 500 ML IV SCH (12:04)
[2018-12-14] MEDS: GABAPENTIN 400 MG CAPSULE PO SCH ×3 (12:53→20:27)
--- NOTE | 2018-12-14 12:54 | Internal Med Progress Note ---
Medical - PN: Subj Patient information: Note initiated : 12/14/18 at 12:49 pm Service Date, if different from initiated Date: [] Patient: Mainor Moran a 73 y/o M admitted on 12/12/18 for increasing swelling to feet, pain to coccyx wounds. Chief Complaint: [] Interval history: Mr. Moran is a 73 year old M with multiple medical issues, lives home with help of home health. The patient notes for the last 1 week he has been progressively getting weak. It is difficult for him to ambulate, normal activities that he could do are now difficult to do because of progressive shortness of breath. Beyond weakness and progressive shortness of breath the patient also admits to having increased swelling in his lower extremities. He has chronic lower extremity swelling that waxes and wanes, that has been going on for the last 6 months however over the last week or 2 the swelling has worsened. He also complaints of pain in the coccys and the groins The patient denies any other complaints or concerns. According to the family of friends who brought the patient in and was spoke with the ER provider the patient is also been more confused and not himself. The patient denies any bleeding from any site, no black stools or blood in the stools. He denies any abdominal pain he denies any cough chest pain headache di zziness changes in vision changes in hearing difficulty in swallowing denies any new skin rashes joint pains or easy bruising. In the emergency room on presentation patient was afebrile temperature 97, heart rate 80 blood pressure 119/43 respirations 14 saturating 97% on room air. Hemoglobin 8.8, MCV 78, WBC count 7.4, platelets 584. Sodium 136 potassium 4.2 carbonate 24 creatinine 1.9 which is at baseline glucose 104. NT proBNP is 380 The patient received IV Lasix 40, in the emergency room. Subsequent to this the blood pressure dropped, and gradually came back up again however given the drop in hemoglobin and drop in blood pressure there was a concern for upper GI bleed. The ED physician thought that the patient may have bled in the abdomen. Fecal occult stool is negative. He called the GI doctor who would be consulting for endoscopy. Given weakness, shortness of breath on exertion possible CHF, possible GI bleed the patient is being admitted as observation to the hospital Chest x-ray is negative CT abdomen and pelvis without contrast was reported as negative. (official re port pending) On reviewing his PCPs note at the end of October it seems the fatigue and weakness has been going on since that time. 12/13 Patient seen and examined, no acute overnight events. The patient denies any new complaints or concerns. I spoke at length with the patient's friend who notes that the patient usually lives at home does not go out sits in his chair of bed all day long. He is noncompliant with his dietary restrictions. He also has memory issues and sometimes just confabulates. Denies any history of alcohol use. Patient's labs are stable, hemoglobin is stable. 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 Patient had a bone biopsy and bone culture sent today. I have started the patient on vancomycin and cefepime. Infectious disease will be consulted The patient will not have an endoscopy today, as hemoglobin is stable probably tomorrow. Start the patient on liquid diet for now 12/14 Patient seen and examined, no acute overnight events. Still feels quite weak and tired. Needs assistance to get out of bed. Labs are stable hemoglobin slightly lower today than yesterday. Plan for endoscopy today. Cultures awaited on antibiotics infectious disease consulted Pubic pain improved Pertinent ROS: Denies headache, dizziness Denies chest pain, palpitations Denies cough or shortness of breath Denies abdominal pain, nausea or vomiting. - Constitutional Vitals: Vital Signs Temp Pulse Resp BP Pulse Ox 99.0 F 69 14 121/61 98 12/14/18 11:20 12/14/18 11:20 12/14/18 11:20 12/14/18 11:20 12/14/18 11:20 Period Temp Pulse Resp BP Sys/Healy Pulse Ox Last 24 Hr 97.9 F-99.0 F 69-77 12-18 115-128/53-61 95-98 Intake and Output 12/13/18 12/14/18 12/14/18 21:59 05:59 13:59 Intake Total 1100 / 1801 650 / 1801 Output Total 1100 / 1100 Balance 1100 / 701 -450 / 701 Weight 254 lb 8 oz Intake & Output: Intake & Output 12/13/18 12/14/18 12/14/18 21:59 05:59 13:59 Intake Total 1100 / 1801 650 / 1801 Output Total 1100 / 1100 Balance 1100 / 701 -450 / 701 Weight 254 lb 8 oz Intake: IV 500 / 551 Oral 600 / 1250 650 / 1250 Output: Urine Catheter Amount 1100 / 1100 Other: Meal Lunch Percent of Meal Consumed 100% Urine Appearance Uretheral ([place]) Clear Urine Color Dark Yellow Uretheral ([place]) Pale Bright Yellow Stool Consistency Dry and Hard # Bowel Movements 0 Exam: Constitutional; Afebrile, cooperative, alert, not in distress. Respiratory system: Air Entry equal on both sides, No crackles or wheezing, no rhonchi. CVS- Rate rhythm regular, S1,S2 heard, no gallop, no rub. Abdomen- Soft nontender abdomen, no organomegaly, no tenderness, no guarding or rigidity, WASTE WATER OR WATER PLANT OPERATOR- AOOx3, moving all extremities, no gross focal deficit noted. Medical - PN: Obj Da - Labs CBC & Chem 7: 12/14/18 04:26 12/14/18 04:26 Labs: Abnormal Lab Results 12/14/18 12/14/18 12/13/18 04:26 04:26 04:08 RBC 3.28 L Hgb 8.4 L Hct 26.0 L POC Hct MCV 79.2 L MCH 25.7 L RDW 16.4 H Plt Count 586 H MPV 7.2 L Lymph % (Auto) 10.9 L Lymph # (Auto) 0.8 L ESR PT 15.3 H INR 1.2 H POC BUN BUN 31 H Creatinine 1.8 H POC Creatinine Uric Acid 9.5 H POC WB Ioniz Calcium Iron TIBC Transferrin % Sat Ferritin C-Reactive Protein NT-Pro-B Natriuret Pep Albumin 2.8 L Globulin 4.0 H Albumin/Globulin Ratio 0.7 L Vitamin B12 Urine Occult Blood 12/13/18 12/13/18 12/12/18 04:08 04:08 13:23 RBC 3.28 L Hgb 8.6 L Hct 25.9 L POC Hct MCV 78.9 L MCH RDW 16.2 H Plt Count 600 H MPV 7.2 L Lymph % (Auto) 11.3 L Lymph # (Auto) 0.8 L ESR PT INR POC BUN BUN 35 H Creatinine 2.0 H POC Creatinine Uric Acid 10.0 H POC WB Ioniz Calcium Iron TIBC Transferrin % Sat Ferritin C-Reactive Protein NT-Pro-B Natriuret Pep Albumin 3.0 L Globulin 4.0 H Albumin/Globulin Ratio 0.8 L Vitamin B12 Urine Occult Blood 0.03 A 12/12/18 12/12/18 12/12/18 13:10 13:10 13:10 RBC Hgb Hct POC Hct MCV MCH RDW Plt Count MPV Lymph % (Auto) Lymph # (Auto) ESR > 120 H PT INR POC BUN BUN Creatinine POC Creatinine Uric Acid POC WB Ioniz Calcium Iron 21 L TIBC 159 L Transferrin % Sat 13 L Ferritin 971.3 H C-Reactive Protein 12.5 H NT-Pro-B Natriuret Pep Albumin Globulin Albumin/Globulin Ratio Vitamin B12 > 2000 H Urine Occult Blood 12/12/18 12/12/18 12/12/18 13:10 12:31 12:31 RBC 3.40 L Hgb 8.8 L Hct 26.6 L POC Hct 24.0 L MCV 78.1 L MCH 25.9 L RDW 16.6 H Plt Count 584 H MPV 7.3 L Lymph % (Auto) 10.8 L Lymph # (Auto) 0.8 L ESR PT INR POC BUN 33 H BUN 38 H Creatinine 1.9 H POC Creatinine 2.0 H Uric Acid POC WB Ioniz Calcium 1.13 L Iron TIBC Transferrin % Sat Ferritin C-Reactive Protein NT-Pro-B Natriuret Pep 301.7 H Albumin Globulin 4.0 H Albumin/Globulin Ratio 0.8 L Vitamin B12 Urine Occult Blood Meds: Medications Acetaminophen (Tylenol) 650 mg PO Q6HP PRN PRN Reason: PAIN/FEVER > 101 Bupropion HCl (Wellbutrin Xl) 150 mg PO DAILY [facility] Cefepime HCl (Maxipime) 1 gm IV DAILY [facility] Last Admin: 12/14/18 12:03 Dose: 1 gm Documented by: Docusate Sodium (Colace) 100 mg PO DAILY [facility] Finasteride (Proscar) 5 mg PO DAILY [facility] Furosemide (Lasix) 40 mg PO BID [facility] Last Admin: 12/13/18 20:16 Dose: 40 mg Documented by: Gabapentin (Neurontin) 300 mg PO DAILY@1500 [facility] Last Admin: 12/13/18 16:29 Dose: 300 mg Documented by: Gabapentin (Neurontin) 400 mg PO BID [facility] Last Admin: 12/13/18 20:16 Dose: 400 mg Documented by: Vancomycin HCl 1,500 mg/ (Sodium Chloride) 500 mls @ 333.3 mls/hr IV DAILY [facility] Last Admin: 12/14/18 12:04 Dose: 333.3 mls/hr Documented by: Iron Carb/Multivit/[place]/Folic Acid (Multivitamin W/Minerals) 1 tab PO DAILY [facility] Naloxone HCl (Narcan) 0.1 mg IV Q2MIN PRN PRN Reason: Opiate Reversal Ondansetron HCl (Zofran) 4 mg IV Q4HP PRN PRN Reason: Nausea And Vomiting Oxybutynin Chloride (Ditropan) 5 mg PO [facility] Last Admin: 12/13/18 20:17 Dose: 5 mg Documented by: Oxycodone HCl (Roxicodone) 5 mg PO Q6HP PRN PRN Reason: Pain Last Admin: 12/13/18 20:20 Dose: 5 mg Documented by: Pantoprazole Sodium (Protonix) 40 mg IV BIDAC [facility] Last Admin: 12/14/18 07:41 Dose: 40 mg Documented by: Progesterone Sl 40 (Mg Tablet) 1 dose SL [facility] Last Admin: 12/13/18 20:15 Dose: 1 dose Documented by: Sodium Chloride (Saline Flush) 10 ml IV Q8 [facility] Last Admin: 12/14/18 05:18 Dose: 10 ml Documented by: Tamsulosin HCl (Flomax) 0.8 mg PO [facility] Last Admin: 12/13/18 20:16 Dose: 0.8 mg Documented by: Vancomycin HCl (Vancomycin Per Pharmacy) 1 order IV UD [facility] Zolpidem Tartrate (Ambien) 5 mg PO HSP PRN PRN Reason: Insomnia Medical - PN: A/P - Time Spent With Patient Total time spent is greater than 50% in coordination of care (as documented) at patient's floor/unit and/or counseling patient: - Narrative A/P Narrative: A/P Microcytic Anemia CKD Fatigue CHF exacerbation, resolved h/o Colon cancer s/o colostomy, Groin pain/ Cocyx pain HTN Peripheral arterial disease Peripheral neuropathy lumbar stenosis BPH Testosterone def chronic wound, sacral Plan continue IV abx, Hb is stable, but slow trend downward, will xfuse if hb < 7.0, infection and ckd likely playing a role in low hb, iron sat is low, EGD hopefully today Infectious disease consulted Resume home medications as appropriate DVT-SCD Full code Medical - PN: Qual - VTE Deep Vein Thrombosis/Pulmonary Embolism Present on Admission: No
[2018-12-14] MEDS: buPROPion 150 MG TAB.XL.24H PO SCH (14:32)
[2018-12-14] MEDS: FINASTERIDE 5 MG TABLET PO SCH (14:32)
[2018-12-14] MEDS: DOCUSATE SODIUM 100 MG CAPSULE PO SCH (14:32)
[2018-12-14] MEDS: FUROSEMIDE 40 MG TABLET PO SCH ×2 (14:33→20:26)
[2018-12-14] MEDS: MULTIVIT,THER IRON,CA,FA & MIN 1 TABLET PO SCH (14:33)
[2018-12-14] MEDS: GABAPENTIN 300 MG CAPSULE PO SCH (14:36)
[2018-12-14] MEDS: oxyCODONE HCL 5 MG TABLET PO PRN ×2 (14:40→20:33)
--- NOTE | 2018-12-14 14:49 | Infectious Disease Consult ---
History of Present Illness Patient information: Note initiated : 12/14/18 at 2:47 pm Service Date, if different from initiated Date: [] Patient: Mainor Moran 73 y/o M admitted on 12/12/18 for increasing swelling to feet, pain to coccyx wounds. Chief Complaint: [] Consult date: 12/14/18 Requesting Physician: Edin Montero Reason for Consult: Pubic symphysis osteomyelitis Chief complaint: I am feeling weak History of present illness: 73 year old man with past medical history pertinent for: Stage IV kidney disease Anemia Colon cancer in past, status post colectomy Patient stays in [facility] with assistance from home health. For last 2 weeks, he has been complaining of progressively getting weak with difficulty in doing daily chores, moving around. Patient also reports swelling in both lower limbs along with aching pain in the groin. Patient denied any fever, chills, nausea, vomiting, diarrhea, cough, chest pain. With these complaints patient presented to ED on 12/12/18. In the emergency room, temperature 97F, heart rate 80/min, blood pressure 119/43, respirations 14, saturating 97% on room air. Labs remarkable for WBC of 7.4, hemoglobin of 8.8 with MCV 78, creatinine 1.9 and NT proBNP is 380. He was admitted to the hospital due to concerns for GI bleeding given drop in his hemoglobin. A CT chest abdomen pelvis was done and in that process there was this finding of "Severe osteitis pubis with inflammation in the perisymphysis soft tissues and osteomyelitis partially eroding the symphysis pubis. There is a new finding from prior CT". I was consulted over the phone by Dr. Montero and we discussed to do a IR guided biopsy of the pubic symphysis to obtain specimen for culture and pathology. The biopsy was done on 12/13 and patient was started on IV vancomycin and IV cefepime. At time of visit, patient confirmed the above history. He was feeling better in terms of his weakness and pain in the groin which was mainly localized in the lower abdomen and suprapubic region. He denied any diarrhea, nausea, vomiting, fever, chills. He denied any recent urological instrumentation. He did mention that he has this hiatal hernia for last many years. Review of Systems All systems PM: reviewed and no additional remarkable complaints except as stated Past History Past medical history: mentioned in HPI Past family history: not pertinent to current presentation Past social history: lives by himself in [place], [place] denied any current smoking, illicit drugs, alc use has a girlfriend who visits him occasionally Medications and Allergies Home Medications Medication Instructions Recorded Confirmed Type multivitamin tablet 1 tab PO QDAY 11/04/17 12/12/18 History progesterone SL 40 mg SUBLINGUAL QHS #30 each 03/10/18 12/12/18 Rx oxycodone 5 mg tablet 5 mg PO Q6HP PRN #90 tab 11/23/18 12/12/18 Rx zolpidem 10 mg tablet 10 mg PO HSP PRN #30 tab 11/30/18 12/12/18 Rx Docusate Sodium [Colace] 100 mg PO DAILY 12/12/18 12/12/18 History Finasteride [Proscar] 5 mg PO DAILY 12/12/18 12/12/18 History Furosemide [Lasix] 40 mg PO BID 12/12/18 12/12/18 History Gabapentin [Neurontin] 100 mg PO BID 12/12/18 12/12/18 History Gabapentin [Neurontin] 300 mg PO TID 12/12/18 12/12/18 History Lisinopril [Zestril] 20 mg PO DAILY 12/12/18 12/12/18 History Oxybutynin Chloride [Ditropan] 5 mg PO HS 12/12/18 12/12/18 History Tamsulosin [Flomax] 0.8 mg PO HS 12/12/18 12/12/18 History buPROPion HCL [Bupropion Xl] 150 mg PO DAILY 12/12/18 12/12/18 History Allergies Allergy/AdvReac Type Severity Reaction Status Date / Time No Known Drug Allergies Allergy Verified 11/30/18 13:11 Physical Examination Vital signs: Temp Pulse Resp BP Pulse Ox 37.2 C 69 14 121/61 98 12/14/18 11:20 12/14/18 11:20 12/14/18 11:20 12/14/18 11:20 12/14/18 11:20 General appearance: no acute distress Eyes pulmonary: nonicteric ENT: oropharynx moist Auscultation: bilateral: clear Cardiovascular: regular rate and rhythm Gastrointestinal: normoactive bowel sounds, other Extremities: no edema Results - Laboratory Findings CBC and BMP: 12/14/18 04:26 12/14/18 04:26 PT/INR, D-dimer PT 15.3 sec (11.9-14.5) H 12/13/18 04:08 INR 1.2 (0.9-1.1) H 12/13/18 04:08 Abnormal lab findings: Abnormal Labs 12/12/18 12/12/18 12/12/18 12:31 12:31 13:10 RBC 3.40 L Hgb 8.8 L Hct 26.6 L POC Hct 24.0 L MCV 78.1 L MCH 25.9 L RDW 16.6 H Plt Count 584 H MPV 7.3 L Lymph % (Auto) 10.8 L Lymph # (Auto) 0.8 L ESR PT INR POC BUN 33 H BUN 38 H Creatinine 1.9 H POC Creatinine 2.0 H Uric Acid POC WB Ioniz Calcium 1.13 L Iron TIBC Transferrin % Sat Ferritin C-Reactive Protein NT-Pro-B Natriuret Pep 301.7 H Albumin Globulin 4.0 H Albumin/Globulin Ratio 0.8 L Vitamin B12 Urine Occult Blood 12/12/18 12/12/18 12/12/18 13:10 13:10 13:10 RBC Hgb Hct POC Hct MCV MCH RDW Plt Count MPV Lymph % (Auto) Lymph # (Auto) ESR > 120 H PT INR POC BUN BUN Creatinine POC Creatinine Uric Acid POC WB Ioniz Calcium Iron 21 L TIBC 159 L Transferrin % Sat 13 L Ferritin 971.3 H C-Reactive Protein 12.5 H NT-Pro-B Natriuret Pep Albumin Globulin Albumin/Globulin Ratio Vitamin B12 > 2000 H Urine Occult Blood 12/12/18 12/13/18 12/13/18 13:23 04:08 04:08 RBC 3.28 L Hgb 8.6 L Hct 25.9 L POC Hct MCV 78.9 L MCH RDW 16.2 H Plt Count 600 H MPV 7.2 L Lymph % (Auto) 11.3 L Lymph # (Auto) 0.8 L ESR PT INR POC BUN BUN 35 H Creatinine 2.0 H POC Creatinine Uric Acid 10.0 H POC WB Ioniz Calcium Iron TIBC Transferrin % Sat Ferritin C-Reactive Protein NT-Pro-B Natriuret Pep Albumin 3.0 L Globulin 4.0 H Albumin/Globulin Ratio 0.8 L Vitamin B12 Urine Occult Blood 0.03 A 12/13/18 12/14/18 12/14/18 04:08 04:26 04:26 RBC 3.28 L Hgb 8.4 L Hct 26.0 L POC Hct MCV 79.2 L MCH 25.7 L RDW 16.4 H Plt Count 586 H MPV 7.2 L Lymph % (Auto) 10.9 L Lymph # (Auto) 0.8 L ESR PT 15.3 H INR 1.2 H POC BUN BUN 31 H Creatinine 1.8 H POC Creatinine Uric Acid 9.5 H POC WB Ioniz Calcium Iron TIBC Transferrin % Sat Ferritin C-Reactive Protein NT-Pro-B Natriuret Pep Albumin 2.8 L Globulin 4.0 H Albumin/Globulin Ratio 0.7 L Vitamin B12 Urine Occult Blood Microbiology: Microbiology 12/12/18 13:02 Blood Blood Culture - Preliminary 12/12/18 13:06 Blood Blood Culture - Preliminary 12/13/18 09:08 Bone Gram Stain - Final Assessment and Plan - Narrative A/P Narrative: A: 1. 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 Both have similar appearance on CT scan. Pubic OM on biopsy Cx is positive for growth of bacteria, and is commonly seen in elderly as a complication from trauma from abdomen surgery, while osteitis pubis is typically seen in young athletes who have lot of sprinting an sudden change in direction such as basketball, soccer, ice hockey - most comon pathogen is S. aureus usually - s/p surgical biopsy on 12/13, sent for GS and C/S and path 2. Anemia: multifact Recommendations: - agree with continuing IV Vanc (pharmacy assisted dosing) and IV Cefepime for now - will change therapy based on C/S results and clinical course Rojas Buitrago MD Infectious diseases
[2018-12-14] MEDS: TAMSULOSIN 0.4 MG CAPSULE PO SCH (20:26)
[2018-12-14] MEDS: OXYBUTYNIN CHLORIDE 5 MG TABLET PO SCH (20:26)
[2018-12-14] MEDS: PROGESTERONE SL SCH (20:27)
[2018-12-15 05:48] LABS: Basophils # (Auto) 0 K/mcL (0.0-0.3); Basophils % (Auto) 0.3 % (0.0-2.0); Eosinophils # (Auto) 0.4 K/mcL (0.0-0.7); Eosinophils % (Auto) 5.1 % (0.0-7.0); Granulocytes % (Auto) 75.2 % (38.0-78.0); Lymphocytes # (Auto) 0.8 K/mcL (1.5-4.8); Lymphocytes % (Auto) 10.3 % (15.5-49.0); Mean Cell Volume 78.9 fL (80.0-100.0); Mean Corpuscular HGB Conc 32.4 g/dL (31.0-36.0); Monocytes # (Auto) 0.7 K/mcL (0.1-0.9); Monocytes % (Auto) 9.1 % (1.0-12.0); Platelet Count 587 K/mcL (140-440); RBC 3.38 M/mcL (4.50-5.90); Red Cell Distribution Width 16.8 % (11.5-14.5)
[2018-12-15 06:22] LABS: ALT/SGPT 26 U/l (0-40); Albumin/Globulin Ratio 0.8 (1.0-2.3); Alkaline Phosphatase 90 U/L (39-117); Bilirubin,Direct < 0.2 mg/dL (0.0-0.3); Blood Urea Nitrogen 36 mg/dl (8-23); Gamma Glutamyl Transpeptidase 48 U/L (8-61); Uric Acid 9.5 mg/dL (2.5-8.0)
[2018-12-15] MEDS: oxyCODONE HCL 5 MG TABLET PO PRN (08:06)
--- NOTE | 2018-12-15 10:52 | Infectious Disease Prog Note ---
Subjective Patient information: Note initiated : 12/15/18 at 9:57 am Service Date, if different from initiated Date: [] Patient: Mainor Moran 73 y/o M admitted on 12/12/18 for increasing swelling to feet, pain to coccyx wounds. Chief Complaint: [] Interval history: Patient is doing better compared to yesterday. Complains of his testicles being swollen. Denies any lower belly pain, fever, chills, diarrhea. Shared with him culture updates from his biopsy and plan to modify his antibiotics. Objective Objective Narrative: ao x3, in nad Chest clear to auscultation Heart sounds normal Bowel sounds present No lower abdominal tenderness Scrotal edema with some redness and thickening of the scrotal skin No edema [place] to gravity - Vital Signs Vital signs: Vital Signs Temp Pulse Resp BP Pulse Ox 12/15/18 03:11 37.2 C 74 12 113/57 98 12/15/18 00:00 37.1 C 69 12 109/48 97 12/14/18 20:00 36.9 C 81 12 116/55 97 12/14/18 18:18 37.2 C 12/14/18 15:44 36.8 C 73 16 125/65 97 12/14/18 11:20 37.2 C 69 14 121/61 98 Intake and Output 12/14/18 12/15/18 12/15/18 21:59 05:59 13:59 Intake Total 400 / 1300 400 / 1300 Output Total 700 / 1875 1175 / 1875 Balance -300 / -575 -775 / -575 Intake: Oral 400 / 800 400 / 800 Output: Urine Catheter Amount 700 / 1875 1175 / 1875 Other: Meal Breakfast Percent of Meal Consumed 100% Feeding Ability Assist with Tray Set Up Urine Appearance Clear Uretheral ([place]) Clear Urine Color Straw Uretheral ([place]) Straw Urine Odor Normal Weight 116.12 kg Intake & Output: Intake & Output 12/14/18 12/15/18 12/15/18 21:59 05:59 13:59 Intake Total 400 / 1300 400 / 1300 Output Total 700 / 1875 1175 / 1875 Balance -300 / -575 -775 / -575 Weight 116.12 kg Intake: Oral 400 / 800 400 / 800 Output: Urine Catheter Amount 700 / 1875 1175 / 1875 Other: Meal Breakfast Percent of Meal Consumed 100% Feeding Ability Assist with Tray Set Up Urine Appearance Clear Uretheral ([place]) Clear Urine Color Straw Uretheral ([place]) Straw Urine Odor Normal - Lab 12/15/18 04:09 12/15/18 04:09 Most recent lab results Calcium 8.8 mg/dl (8.6-10.4) 12/15/18 04:09 Phosphorus 4.1 mg/dL (2.7-4.5) 12/15/18 04:09 Magnesium 2.1 mg/dL (1.6-2.5) 12/15/18 04:09 Microbiology 12/13/18 09:08 Bone Gram Stain - Final 12/13/18 09:08 Bone Tissue Culture - Preliminary Pseudomonas aeruginosa Gram positive cocci 12/12/18 13:02 Blood Blood Culture - Preliminary 12/12/18 13:06 Blood Blood Culture - Preliminary Medications Active Medications: Acetaminophen (Tylenol) 650 mg PO Q6HP PRN PRN Reason: PAIN/FEVER > 101 Bupropion HCl (Wellbutrin Xl) 150 mg PO DAILY [facility] Last Admin: 12/14/18 14:32 Dose: 150 mg Documented by: [email or web address] Docusate Sodium (Colace) 100 mg PO DAILY [facility] Last Admin: 12/14/18 14:32 Dose: 100 mg Documented by: [email or web address] Finasteride (Proscar) 5 mg PO DAILY [facility] Last Admin: 12/14/18 14:32 Dose: 5 mg Documented by: [email or web address] Furosemide (Lasix) 40 mg PO BID [facility] Last Admin: 12/14/18 20:26 Dose: 40 mg Documented by: Admin: 12/14/18 14:33 Dose: 40 mg Documented by: [email or web address] Admin: 12/13/18 20:16 Dose: 40 mg Documented by: ANAY Gabapentin (Neurontin) 300 mg PO DAILY@1500 [facility] Last Admin: 12/14/18 14:36 Dose: Not Given Documented by: [email or web address] Non-Admin Reason: NPO Admin: 12/13/18 16:29 Dose: 300 mg Documented by: [email or web address] Gabapentin (Neurontin) 400 mg PO BID [facility] Last Admin: 12/14/18 20:27 Dose: 400 mg Documented by: Admin: 12/14/18 14:35 Dose: 400 mg Documented by: Admin: 12/13/18 20:16 Dose: 400 mg Documented by: ANAY Piperacillin Sod/Tazobactam (Sod 3.375 gm/ Dextrose) 50 mls @ 100 mls/hr IV Q6H [facility] Iron Carb/Multivit/[place]/Folic Acid (Multivitamin W/Minerals) 1 tab PO DAILY [facility] Last Admin: 12/14/18 14:33 Dose: 1 tab Documented by: KAREN Naloxone HCl (Narcan) 0.1 mg IV Q2MIN PRN PRN Reason: Opiate Reversal Ondansetron HCl (Zofran) 4 mg IV Q4HP PRN PRN Reason: Nausea And Vomiting Oxybutynin Chloride (Ditropan) 5 mg PO [facility] Last Admin: 12/14/18 20:26 Dose: 5 mg Documented by: Admin: 12/13/18 20:17 Dose: 5 mg Documented by: ANAY Oxycodone HCl (Roxicodone) 5 mg PO Q6HP PRN PRN Reason: Pain Last Admin: 12/15/18 08:06 Dose: 5 mg Documented by: Admin: 12/14/18 20:33 Dose: 5 mg Documented by: Admin: 12/14/18 14:40 Dose: 5 mg Documented by: Admin: 12/13/18 20:20 Dose: 5 mg Documented by: ANAY Pantoprazole Sodium (Protonix) 40 mg IV BIDAC [facility] Last Admin: 12/14/18 17:33 Dose: 40 mg Documented by: Admin: 12/14/18 07:41 Dose: 40 mg Documented by: Admin: 12/13/18 17:54 Dose: 40 mg Documented by: KAREN Progesterone Sl 40 (Mg Tablet) 1 dose SL HS [facility] Last Admin: 12/14/18 20:27 Dose: 1 dose Documented by: ANAY Comments: no [facility] bar code on home emergency medical technician basic: 12/13/18 20:15 Dose: 1 dose Documented by: ANAY Sodium Chloride (Saline Flush) 10 ml IV Q8 [facility] Last Admin: 12/14/18 20:27 Dose: Not Given Documented by: ANAY Non-Admin Reason: IV infiltrated; d/c'd Admin: 12/14/18 14:35 Dose: 10 ml Documented by: Admin: 12/14/18 05:18 Dose: 10 ml Documented by: Admin: 12/13/18 20:20 Dose: 10 ml Documented by: Admin: 12/13/18 16:30 Dose: 10 ml Documented by: [email or web address] Tamsulosin HCl (Flomax) 0.8 mg PO HS [facility] Last Admin: 12/14/18 20:26 Dose: 0.8 mg Documented by: Admin: 12/13/18 20:16 Dose: 0.8 mg Documented by: ANAY Zolpidem Tartrate (Ambien) 5 mg PO HSP PRN PRN Reason: Insomnia Last Admin: 12/14/18 20:33 Dose: 5 mg Documented by: ANAY Assessment and Plan - Narrative A/P Narrative: A: 1. 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 Both have similar appearance on CT scan. Pubic OM on biopsy Cx is positive for growth of bacteria, and is commonly seen in elderly as a complication from trauma from abdomen surgery, while osteitis pubis is typically seen in young athletes who have lot of sprinting an sudden change in direction such as basketball, soccer, ice hockey - s/p surgical biopsy on 12/13, with cultures growing pseudomonas aeruginosa and anaerobic GPC (small amount) 2. Anemia: multifact 3. CKD: Cr Cl per [place] formulla is 51 Recommendations: -Stop IV Vanc -Continue IV Zosyn. Given presence of P aeruginosa, suggest increasing dose to 4.5 gm every 6 hours - will change therapy based on C/S results and clinical course Anticipate 6 weeks of oral antibiotic therapy Rojas Buitrago MD Infectious diseases
--- NOTE | 2018-12-15 11:36 | Internal Med Progress Note ---
Medical - PN: Subj Patient information: Note initiated : 12/15/18 at 11:33 am Service Date, if different from initiated Date: [] Patient: Mainor Moran a 73 y/o M admitted on 12/12/18 for increasing swelling to feet, pain to coccyx wounds. Chief Complaint: [] Interval history: Mr. Moran is a 73 year old M with multiple medical issues, lives home with help of home health. The patient notes for the last 1 week he has been progressively getting weak. It is difficult for him to ambulate, normal activities that he could do are now difficult to do because of progressive shortness of breath. Beyond weakness and progressive shortness of breath the patient also admits to having increased swelling in his lower extremities. He has chronic lower extremity swelling that waxes and wanes, that has been going on for the last 6 months however over the last week or 2 the swelling has worsened. He also complaints of pain in the coccys and the groins The patient denies any other complaints or concerns. According to the family of friends who brought the patient in and was spoke with the ER provider the patient is also been more confused and not himself. The patient denies any bleeding from any site, no black stools or blood in the stools. He denies any abdominal pain he denies any cough chest pain headache di zziness changes in vision changes in hearing difficulty in swallowing denies any new skin rashes joint pains or easy bruising. In the emergency room on presentation patient was afebrile temperature 97, heart rate 80 blood pressure 119/43 respirations 14 saturating 97% on room air. Hemoglobin 8.8, MCV 78, WBC count 7.4, platelets 584. Sodium 136 potassium 4.2 carbonate 24 creatinine 1.9 which is at baseline glucose 104. NT proBNP is 380 The patient received IV Lasix 40, in the emergency room. Subsequent to this the blood pressure dropped, and gradually came back up again however given the drop in hemoglobin and drop in blood pressure there was a concern for upper GI bleed. The ED physician thought that the patient may have bled in the abdomen. Fecal occult stool is negative. He called the GI doctor who would be consulting for endoscopy. Given weakness, shortness of breath on exertion possible CHF, possible GI bleed the patient is being admitted as observation to the hospital Chest x-ray is negative CT abdomen and pelvis without contrast was reported as negative. (official re port pending) On reviewing his PCPs note at the end of October it seems the fatigue and weakness has been going on since that time. 12/13 Patient seen and examined, no acute overnight events. The patient denies any new complaints or concerns. I spoke at length with the patient's friend who notes that the patient usually lives at home does not go out sits in his chair of bed all day long. He is noncompliant with his dietary restrictions. He also has memory issues and sometimes just confabulates. Denies any history of alcohol use. Patient's labs are stable, hemoglobin is stable. 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 Patient had a bone biopsy and bone culture sent today. I have started the patient on vancomycin and cefepime. Infectious disease will be consulted The patient will not have an endoscopy today, as hemoglobin is stable probably tomorrow. Start the patient on liquid diet for now 12/14 Patient seen and examined, no acute overnight events. Still feels quite weak and tired. Needs assistance to get out of bed. Labs are stable hemoglobin slightly lower today than yesterday. Plan for endoscopy today. Cultures awaited on antibiotics infectious disease consulted Pubic pain improved 12/15 Pt seen examined, no acute ovenright issues, EGD planned today Hb stable cultures from bone biospy growin anaerobes and pseudomonas, abx switched to zosyn. pt does have significant scrotal edema due to lying in bed all the time, nystatin powder to be started, scrotoal support to be given. Pertinent ROS: Denies headache, dizziness Denies chest pain, palpitations Denies cough or shortness of breath Denies abdominal pain, nausea or vomiting. - Constitutional Vitals: Vital Signs Temp Pulse Resp BP Pulse Ox 98.9 F 74 12 113/57 98 12/15/18 03:11 12/15/18 03:11 12/15/18 03:11 12/15/18 03:11 12/15/18 03:11 Period Temp Pulse Resp BP Sys/Healy Pulse Ox Last 24 Hr 98.2 F-99 F 69-81 12-16 109-125/48-65 97-98 Intake and Output 12/14/18 12/15/18 12/15/18 21:59 05:59 13:59 Intake Total 400 / 1300 400 / 1300 Output Total 700 / 1875 1175 / 1875 Balance -300 / -575 -775 / -575 Weight 256 lb Intake & Output: Intake & Output 12/14/18 12/15/18 12/15/18 21:59 05:59 13:59 Intake Total 400 / 1300 400 / 1300 Output Total 700 / 1875 1175 / 1875 Balance -300 / -575 -775 / -575 Weight 256 lb Intake: Oral 400 / 800 400 / 800 Output: Urine Catheter Amount 700 / 1875 1175 / 1875 Other: Meal Breakfast Percent of Meal Consumed 100% Feeding Ability Assist with Tray Set Up Urine Appearance Clear Uretheral ([place]) Clear Urine Color Straw Uretheral ([place]) Straw Urine Odor Normal Exam: Constitutional; Afebrile, cooperative, alert, not in distress. Respiratory system: Air Entry equal on both sides, No crackles or wheezing, no rhonchi. CVS- Rate rhythm regular, S1,S2 heard, no gallop, no rub. Abdomen- Soft nontender abdomen, no organomegaly, no tenderness, no guarding or rigidity, PROJECT ASSISTANT- AOOx3, moving all extremities, no gross focal deficit noted. Perineal region, erythmatous scrotal region, significant edema of scrotal wall. Medical - PN: Obj Da - Labs CBC & Chem 7: 12/15/18 04:09 12/15/18 04:09 Labs: Abnormal Lab Results 12/15/18 12/15/18 12/14/18 04:09 04:09 04:26 RBC 3.38 L Hgb 8.6 L Hct 26.6 L POC Hct MCV 78.9 L MCH 25.6 L RDW 16.8 H Plt Count 587 H MPV 7.2 L Lymph % (Auto) 10.3 L Lymph # (Auto) 0.8 L ESR PT INR POC BUN BUN 36 H 31 H Creatinine 2.1 H 1.8 H POC Creatinine Glucose 109 H Uric Acid 9.5 H 9.5 H POC WB Ioniz Calcium Iron TIBC Transferrin % Sat Ferritin C-Reactive Protein NT-Pro-B Natriuret Pep Albumin 3.0 L 2.8 L Globulin 4.0 H 4.0 H Albumin/Globulin Ratio 0.8 L 0.7 L Vitamin B12 Urine Occult Blood 12/14/18 12/13/18 12/13/18 04:26 04:08 04:08 RBC 3.28 L Hgb 8.4 L Hct 26.0 L POC Hct MCV 79.2 L MCH 25.7 L RDW 16.4 H Plt Count 586 H MPV 7.2 L Lymph % (Auto) 10.9 L Lymph # (Auto) 0.8 L ESR PT 15.3 H INR 1.2 H POC BUN BUN 35 H Creatinine 2.0 H POC Creatinine Glucose Uric Acid 10.0 H POC WB Ioniz Calcium Iron TIBC Transferrin % Sat Ferritin C-Reactive Protein NT-Pro-B Natriuret Pep Albumin 3.0 L Globulin 4.0 H Albumin/Globulin Ratio 0.8 L Vitamin B12 Urine Occult Blood 12/13/18 12/12/18 12/12/18 04:08 13:23 13:10 RBC 3.28 L Hgb 8.6 L Hct 25.9 L POC Hct MCV 78.9 L MCH RDW 16.2 H Plt Count 600 H MPV 7.2 L Lymph % (Auto) 11.3 L Lymph # (Auto) 0.8 L ESR PT INR POC BUN BUN Creatinine POC Creatinine Glucose Uric Acid POC WB Ioniz Calcium Iron TIBC Transferrin % Sat Ferritin C-Reactive Protein 12.5 H NT-Pro-B Natriuret Pep Albumin Globulin Albumin/Globulin Ratio Vitamin B12 Urine Occult Blood 0.03 A 12/12/18 12/12/18 12/12/18 13:10 13:10 13:10 RBC Hgb Hct POC Hct 24.0 L MCV MCH RDW Plt Count MPV Lymph % (Auto) Lymph # (Auto) ESR > 120 H PT INR POC BUN 33 H BUN Creatinine POC Creatinine 2.0 H Glucose Uric Acid POC WB Ioniz Calcium 1.13 L Iron 21 L TIBC 159 L Transferrin % Sat 13 L Ferritin 971.3 H C-Reactive Protein NT-Pro-B Natriuret Pep Albumin Globulin Albumin/Globulin Ratio Vitamin B12 > 2000 H Urine Occult Blood 12/12/18 12/12/18 12:31 12:31 RBC 3.40 L Hgb 8.8 L Hct 26.6 L POC Hct MCV 78.1 L MCH 25.9 L RDW 16.6 H Plt Count 584 H MPV 7.3 L Lymph % (Auto) 10.8 L Lymph # (Auto) 0.8 L ESR PT INR POC BUN BUN 38 H Creatinine 1.9 H POC Creatinine Glucose Uric Acid POC WB Ioniz Calcium Iron TIBC Transferrin % Sat Ferritin C-Reactive Protein NT-Pro-B Natriuret Pep 301.7 H Albumin Globulin 4.0 H Albumin/Globulin Ratio 0.8 L Vitamin B12 Urine Occult Blood Meds: Medications Acetaminophen (Tylenol) 650 mg PO Q6HP PRN PRN Reason: PAIN/FEVER > 101 Bupropion HCl (Wellbutrin Xl) 150 mg PO DAILY [facility] Last Admin: 12/14/18 14:32 Dose: 150 mg Documented by: Docusate Sodium (Colace) 100 mg PO DAILY [facility] Last Admin: 12/14/18 14:32 Dose: 100 mg Documented by: Finasteride (Proscar) 5 mg PO DAILY [facility] Last Admin: 12/14/18 14:32 Dose: 5 mg Documented by: Furosemide (Lasix) 40 mg PO BID [facility] Last Admin: 12/14/18 20:26 Dose: 40 mg Documented by: Gabapentin (Neurontin) 300 mg PO DAILY@1500 [facility] Last Admin: 12/14/18 14:36 Dose: Not Given Documented by: Gabapentin (Neurontin) 400 mg PO BID [facility] Last Admin: 12/14/18 20:27 Dose: 400 mg Documented by: Piperacillin Sod/Tazobactam (Sod 3.375 gm/ Dextrose) 50 mls @ 100 mls/hr IV Q6H [facility] Iron Carb/Multivit/Policy Manager/Folic Acid (Multivitamin W/Minerals) 1 tab PO DAILY [facility] Last Admin: 12/14/18 14:33 Dose: 1 tab Documented by: Naloxone HCl (Narcan) 0.1 mg IV Q2MIN PRN PRN Reason: Opiate Reversal Nystatin (Nystatin) 1 dose TOPICAL BID [facility] Ondansetron HCl (Zofran) 4 mg IV Q4HP PRN PRN Reason: Nausea And Vomiting Oxybutynin Chloride (Ditropan) 5 mg PO HS [facility] Last Admin: 12/14/18 20:26 Dose: 5 mg Documented by: Oxycodone HCl (Roxicodone) 5 mg PO Q6HP PRN PRN Reason: Pain Last Admin: 12/15/18 08:06 Dose: 5 mg Documented by: Pantoprazole Sodium (Protonix) 40 mg IV BIDAC [facility] Last Admin: 12/14/18 17:33 Dose: 40 mg Documented by: Progesterone Sl 40 (Mg Tablet) 1 dose SL HS [facility] Last Admin: 12/14/18 20:27 Dose: 1 dose Documented by: Sodium Chloride (Saline Flush) 10 ml IV Q8 [facility] Last Admin: 12/14/18 20:27 Dose: Not Given Documented by: Tamsulosin HCl (Flomax) 0.8 mg PO HS [facility] Last Admin: 12/14/18 20:26 Dose: 0.8 mg Documented by: Zolpidem Tartrate (Ambien) 5 mg PO HSP PRN PRN Reason: Insomnia Last Admin: 12/14/18 20:33 Dose: 5 mg Documented by: Medical - PN: A/P - Time Spent With Patient Total time spent is greater than 50% in coordination of care (as documented) at patient's floor/unit and/or counseling patient: - Narrative A/P Narrative: A/P Pubic symphysis Osteomyelitis. Microcytic Anemia CKD Fatigue CHF exacerbation, resolved h/o Colon cancer s/o colostomy, Groin pain/ Cocyx pain HTN Peripheral arterial disease Peripheral neuropathy lumbar stenosis BPH Testosterone def chronic wound, sacral scrotal wall edema Plan d/c vanco and cefepine, start on zosyn hb stab,egd today Hb is stable, but slow trend downward, will xfuse if hb < 7.0, infection and ckd likely playing a role in low hb, iron sat is low, elevated ferriting likely8 acute phase reactant. Infectious disease consulted, appreciate their input. Resume home medications as appropriate labs are stable. DVT-SCD Full code Medical - PN: Qual - VTE Deep Vein Thrombosis/Pulmonary Embolism Present on Admission: No
[2018-12-15] MEDS: PIPERACILLIN SODIUM/TAZOBACTAM 3.375 GM in DEXTROSE 5% IN WATER 50 ML IV SCH ×2 (12:34→13:27)
[2018-12-15] MEDS: 0.9 % SODIUM CHLORIDE 10 ML SYRINGE IV SCH ×3 (13:22→20:04)
[2018-12-15] MEDS: PANTOPRAZOLE 40 MG VIAL IV SCH ×2 (13:23→18:42)
[2018-12-15] MEDS: FINASTERIDE 5 MG TABLET PO SCH ×2 (13:24→18:43)
[2018-12-15] MEDS: MULTIVIT,THER IRON,CA,FA & MIN 1 TABLET PO SCH (13:24)
[2018-12-15] MEDS: GABAPENTIN 400 MG CAPSULE PO SCH ×2 (13:24→19:59)
[2018-12-15] MEDS: CEFEPIME 1 GM VIAL IV SCH (14:54)
[2018-12-15] MEDS: VANCOMYCIN 1,500 MG in 0.9 % SODIUM CHLORIDE 500 ML IV SCH (14:55)
[2018-12-15] MEDS: FUROSEMIDE 40 MG TABLET PO SCH ×2 (14:56→19:59)
[2018-12-15] MEDS: GABAPENTIN 300 MG CAPSULE PO SCH (15:00)
[2018-12-15] MEDS ORDERED: KETAMINE HCL 50 MG/ML ML IV PRN (15:18)
[2018-12-15] MEDS ORDERED: PROPOFOL 200 MG/20 ML VIAL IV SCH (15:30)
[2018-12-15] MEDS ORDERED: MIDAZOLAM 2 MG/2 ML VIAL IV SCH (15:30)
[2018-12-15] MEDS ORDERED: PROPOFOL 20 ML IV ONE (16:10)
[2018-12-15] MEDS ORDERED: MIDAZOLAM 2 MG/2 ML VIAL ONE (16:10)
[2018-12-15] MEDS: NYSTATIN POWDER BOTTLE 15GM TOPICAL SCH ×2 (18:39→20:03)
[2018-12-15] MEDS: DOCUSATE SODIUM 100 MG CAPSULE PO SCH (18:40)
[2018-12-15] MEDS: buPROPion 150 MG TAB.XL.24H PO SCH (18:40)
[2018-12-15] MEDS: PIPERACILLIN SODIUM/TAZOBACTAM 4.5 GM in DEXTROSE 5% IN WATER 50 ML IV SCH (19:25)
[2018-12-15] MEDS: TAMSULOSIN 0.4 MG CAPSULE PO SCH (19:59)
[2018-12-15] MEDS: OXYBUTYNIN CHLORIDE 5 MG TABLET PO SCH (19:59)
[2018-12-15] MEDS: PROGESTERONE SL SCH (20:01)
[2018-12-16] MEDS: PIPERACILLIN SODIUM/TAZOBACTAM 4.5 GM in DEXTROSE 5% IN WATER 50 ML IV SCH ×2 (00:10→06:10)
[2018-12-16 05:38] LABS: Basophils # (Auto) 0 K/mcL (0.0-0.3); Basophils % (Auto) 0.2 % (0.0-2.0); Eosinophils # (Auto) 0.4 K/mcL (0.0-0.7); Eosinophils % (Auto) 5.7 % (0.0-7.0); Granulocytes % (Auto) 80.8 % (38.0-78.0); Lymphocytes # (Auto) 0.5 K/mcL (1.5-4.8); Lymphocytes % (Auto) 6.9 % (15.5-49.0); Mean Cell Volume 78.9 fL (80.0-100.0); Mean Corpuscular HGB Conc 32.5 g/dL (31.0-36.0); Monocytes # (Auto) 0.5 K/mcL (0.1-0.9); Monocytes % (Auto) 6.4 % (1.0-12.0); Platelet Count 613 K/mcL (140-440); RBC 3.46 M/mcL (4.50-5.90); Red Cell Distribution Width 16.4 % (11.5-14.5)
[2018-12-16] MEDS: 0.9 % SODIUM CHLORIDE 10 ML SYRINGE IV SCH ×2 (06:10→06:54)
[2018-12-16 06:11] LABS: ALT/SGPT 31 U/l (0-40); Albumin/Globulin Ratio 0.7 (1.0-2.3); Alkaline Phosphatase 107 U/L (39-117); Bilirubin,Direct < 0.2 mg/dL (0.0-0.3); Blood Urea Nitrogen 28 mg/dl (8-23); Gamma Glutamyl Transpeptidase 62 U/L (8-61); Uric Acid 8.5 mg/dL (2.5-8.0)
[2018-12-16] MEDS: PANTOPRAZOLE 40 MG VIAL IV SCH (06:53)
[2018-12-16] MEDS ORDERED: LEVOFLOXACIN 750 MG TABLET PO SCH ×2 (09:00)
[2018-12-16] MEDS: GABAPENTIN 400 MG CAPSULE PO SCH (09:19)
[2018-12-16] MEDS: MULTIVIT,THER IRON,CA,FA & MIN 1 TABLET PO SCH (09:19)
[2018-12-16] MEDS: buPROPion 150 MG TAB.XL.24H PO SCH (09:19)
[2018-12-16] MEDS: FUROSEMIDE 40 MG TABLET PO SCH (09:20)
[2018-12-16] MEDS: FINASTERIDE 5 MG TABLET PO SCH (09:20)
[2018-12-16] MEDS: NYSTATIN POWDER BOTTLE 15GM TOPICAL SCH (09:23)
[2018-12-16] MEDS: DOCUSATE SODIUM 100 MG CAPSULE PO SCH (09:26)
[2018-12-16] MEDS: oxyCODONE HCL 5 MG TABLET PO PRN (09:42)
--- NOTE | 2018-12-16 10:28 | EGD Procedure Note ---
EGD Procedure Notes - Procedure Information Patient information: Note initiated : 12/16/18 at 10:27 am Service Date: 12/15/18 Patient: Mainor Moran 73 y/o M admitted on 12/12/18 for increasing swelling to feet, pain to coccyx wounds. Pre-op diagnosis general: Anemia. Post-Op Diagnosis general: No bleeding. Small hiatal hernia. Query Malone's. Procedure: Esophogogastroduodenoscopy Procedure Narrative: The procedure, alternatives and risks were discussed with the patient and the patient's questions were answered. With endoscopist-administered intravenous sedation, the Olympus video endoscope was introduced into the esophagus. The esophagus, stomach, and duodenum were examined sequentially. There is no esophagitis. A small tongue of columnar epithelium was seen above the esophagogastric junction. This was multiply biopsied in order to assess for possible dysplasia. There was a small hiatal hernia. Antral biopsy was obtained for ARAMIS. No bleeding nor any bleeding site was identified. The gastric mucosa, antrum, pyloric ring and duodenum were otherwise normal. Assessment: No bleeding. Small hiatal hernia. Query Malone's.
--- NOTE | 2018-12-16 11:03 | Infectious Disease Prog Note ---
Subjective Patient information: Note initiated : 12/16/18 at 10:55 am Service Date, if different from initiated Date: [] Patient: Mainor Moran 73 y/o M admitted on 12/12/18 for increasing swelling to feet, pain to coccyx wounds. Chief Complaint: [] Interval history: Patient is feeling well. Denies any fever, chills, nausea, vomiting, diarrhea. Discussed with him the plan to do oral antibiotics for 6 weeks and follow-up appointment in ID clinic in 4 weeks. Counseled him to get his labs done on Friday so that antibiotic dosage could be adjusted based on his renal function Objective Objective Narrative: Alert, oriented x3 No thrush Chest clear to auscultation except for decreased breath sounds at the bases Heart sounds normal, no murmurs Bowel sounds present, nontender, has a ostomy bag mild edema - Vital Signs Vital signs: Vital Signs Temp Pulse Pulse Resp BP BP Pulse Ox 12/16/18 04:00 37.1 C 71 18 121/55 98 12/15/18 23:30 36.9 C 68 20 109/53 95 12/15/18 19:52 36.3 C 81 18 128/58 96 12/15/18 16:45 71 16 104/56 100 12/15/18 16:40 70 16 83/65 100 12/15/18 16:02 36.7 C 71 14 113/56 97 12/15/18 12:00 36.7 C 71 14 113/56 97 Intake and Output 12/15/18 12/16/18 12/16/18 21:59 05:59 13:59 Intake Total 470 / 770 250 / 770 50 / 50 Output Total 1050 / 1101 51 / 1101 Balance -580 / -331 199 / -331 50 / 50 Intake: IV 50 / 150 50 / 150 50 / 50 Zosyn 4.5 gm In Dextrose 5% in 50 / 100 50 / 100 50 / 50 Water 50 ml @ 100 mls/hr IV Q6H [facility] Rx#:[id number] Oral 420 / 620 200 / 620 Output: Urine Catheter Amount 650 / 650 Uretheral ([place]an[place]) 650 / 650 Void Amount 400 / 450 50 / 450 # of times incontinent of urine Other: Meal Breakfast Percent of Meal Consumed 75% Weight 114.532 kg Intake & Output: Intake & Output 01/12/16/18 12/16/18 21:59 05:59 13:59 Intake Total 470 / 770 250 / 770 50 / 50 Output Total 1050 / 1101 51 / 1101 Balance -580 / -331 199 / -331 50 / 50 Weight 114.532 kg Intake: IV 50 / 150 50 / 150 50 / 50 Zosyn 4.5 gm In Dextrose 5% in 50 / 100 50 / 100 50 / 50 Water 50 ml @ 100 mls/hr IV Q6H [facility] Rx#:[id number] Oral 420 / 620 200 / 620 Output: Urine Catheter Amount 650 / 650 Uretheral ([place]an[place]) 650 / 650 Void Amount 400 / 450 50 / 450 # of times incontinent of urine Other: Meal Breakfast Percent of Meal Consumed 75% - Lab 12/16/18 03:54 12/16/18 03:54 Most recent lab results Calcium 8.7 mg/dl (8.6-10.4) 12/16/18 03:54 Phosphorus 3.9 mg/dL (2.7-4.5) 12/16/18 03:54 Magnesium 2.2 mg/dL (1.6-2.5) 12/16/18 03:54 Microbiology 12/13/18 09:08 Bone Gram Stain - Final 12/13/18 09:08 Bone Tissue Culture - Preliminary Pseudomonas aeruginosa Coagulase negative staph 12/12/18 13:02 Blood Blood Culture - Preliminary 12/12/18 13:06 Blood Blood Culture - Preliminary Medications Active Medications: Acetaminophen (Tylenol) 650 mg PO Q6HP PRN PRN Reason: PAIN/FEVER > 101 Bupropion HCl (Wellbutrin Xl) 150 mg PO DAILY [facility] Last Admin: 12/16/18 09:19 Dose: 150 mg Documented by: [email or web address] Admin: 12/15/18 18:40 Dose: 150 mg Documented by: [email or web address] Admin: 12/14/18 14:32 Dose: 150 mg Documented by: [email or web address] Docusate Sodium (Colace) 100 mg PO DAILY [facility] Last Admin: 12/16/18 09:26 Dose: 100 mg Documented by: [email or web address] Admin: 12/15/18 18:40 Dose: 100 mg Documented by: [email or web address] Admin: 12/14/18 14:32 Dose: 100 mg Documented by: [email or web address] Finasteride (Proscar) 5 mg PO DAILY [facility] Last Admin: 12/16/18 09:20 Dose: 5 mg Documented by: [email or web address] Admin: 12/15/18 18:43 Dose: 5 mg Documented by: [email or web address] Admin: 12/14/18 14:32 Dose: 5 mg Documented by: [email or web address] Furosemide (Lasix) 40 mg PO BID [facility] Last Admin: 12/16/18 09:20 Dose: 40 mg Documented by: [email or web address] Admin: 12/15/18 19:59 Dose: 40 mg Documented by: [email or web address] Admin: 12/15/18 14:56 Dose: Not Given Documented by: [email or web address] Non-Admin Reason: NPO Admin: 12/14/18 20:26 Dose: 40 mg Documented by: [email or web address] Admin: 12/14/18 14:33 Dose: 40 mg Documented by: [email or web address] Admin: 12/13/18 20:16 Dose: 40 mg Documented by: [email or web address] Gabapentin (Neurontin) 300 mg PO DAILY@1500 [facility] Last Admin: 12/15/18 15:00 Dose: 300 mg Documented by: [email or web address] Admin: 12/14/18 14:36 Dose: Not Given Documented by: [email or web address] Non-Admin Reason: NPO Admin: 12/13/18 16:29 Dose: 300 mg Documented by: [email or web address] Gabapentin (Neurontin) 400 mg PO BID [facility] Admin: 12/16/18 09:19 Dose: 400 mg Documented by: [email or web address] Admin: 12/15/18 19:59 Dose: 400 mg Documented by: [email or web address] Admin: 12/15/18 13:24 Dose: Not Given Documented by: [email or web address] Non-Admin Reason: NPO Admin: 12/14/18 20:27 Dose: 400 mg Documented by: Admin: 12/14/18 14:35 Dose: 400 mg Documented by: [email or web address] Admin: 12/13/18 20:16 Dose: 400 mg Documented by: ANAY Iron Carb/Multivit/[place]/Folic Acid (Multivitamin W/Minerals) 1 tab PO DAILY [facility] Last Admin: 12/16/18 09:19 Dose: 1 tab Documented by: [email or web address] Admin: 12/15/18 13:24 Dose: Not Given Documented by: [email or web address] Non-Admin Reason: NPO Admin: 12/14/18 14:33 Dose: 1 tab Documented by: [email or web address] Levofloxacin (Levaquin) 750 mg PO Q48 [facility] Last Admin: 12/16/18 09:19 Dose: 750 mg Documented by: [email or web address] Naloxone HCl (Narcan) 0.1 mg IV Q2MIN PRN PRN Reason: Opiate Reversal Nystatin (Nystatin) 1 dose TOPICAL BID [facility] Last Admin: 12/16/18 09:23 Dose: 1 dose Documented by: [email or web address] Admin: 12/15/18 20:03 Dose: 1 dose Documented by: Admin: 12/15/18 18:39 Dose: Not Given Documented by: [email or web address] Non-Admin Reason: Heavy patient load Ondansetron HCl (Zofran) 4 mg IV Q4HP PRN PRN Reason: Nausea And Vomiting Oxybutynin Chloride (Ditropan) 5 mg PO HS [facility] Last Admin: 12/15/18 19:59 Dose: 5 mg Documented by: Admin: 12/14/18 20:26 Dose: 5 mg Documented by: Admin: 12/13/18 20:17 Dose: 5 mg Documented by: ANAY Oxycodone HCl (Roxicodone) 5 mg PO Q6HP PRN PRN Reason: Pain Last Admin: 12/16/18 09:42 Dose: 5 mg Documented by: [email or web address] Admin: 12/15/18 08:06 Dose: 5 mg Documented by: [email or web address] Admin: 12/14/18 20:33 Dose: 5 mg Documented by: Admin: 12/14/18 14:40 Dose: 5 mg Documented by: [email or web address] Admin: 12/13/18 20:20 Dose: 5 mg Documented by: ANAY Pantoprazole Sodium (Protonix) 40 mg IV BIDAC [facility] Last Admin: 12/16/18 06:53 Dose: 40 mg Documented by: [email or web address] Admin: 12/15/18 18:42 Dose: 40 mg Documented by: [email or web address] Admin: 12/15/18 13:23 Dose: Not Given Documented by: [email or web address] Non-Admin Reason: No IV access Admin: 12/14/18 17:33 Dose: 40 mg Documented by: [email or web address] Admin: 12/14/18 07:41 Dose: 40 mg Documented by: [email or web address] Admin: 12/13/18 17:54 Dose: 40 mg Documented by: [email or web address] Progesterone Sl 40 (Mg Tablet) 1 dose SL HS [facility] Last Admin: 12/15/18 20:01 Dose: Not Given Documented by: ANAY Non-Admin Reason: Patient Refused Admin: 12/14/18 20:27 Dose: 1 dose Documented by: ANAY Comments: no [facility] bar code on home medical officer: 12/13/18 20:15 Dose: 1 dose Documented by: ANAY Sodium Chloride (Saline Flush) 10 ml IV Q8 [facility] Last Admin: 12/16/18 06:54 Dose: 10 ml Documented by: [email or web address] Admin: 12/16/18 06:10 Dose: 10 ml Documented by: Admin: 12/15/18 20:04 Dose: 10 ml Documented by: Admin: 12/15/18 18:41 Dose: 10 ml Documented by: [email or web address] Admin: 12/15/18 13:22 Dose: Not Given Documented by: KAREN Non-Admin Reason: No IV access Admin: 12/14/18 20:27 Dose: Not Given Documented by: ANAY Non-Admin Reason: IV infiltrated; d/c'd Admin: 12/14/18 14:35 Dose: 10 ml Documented by: [email or web address] Admin: 12/14/18 05:18 Dose: 10 ml Documented by: Admin: 12/13/18 20:20 Dose: 10 ml Documented by: Admin: 12/13/18 16:30 Dose: 10 ml Documented by: [email or web address] Tamsulosin HCl (Flomax) 0.8 mg PO [facility] Last Admin: 12/15/18 19:59 Dose: 0.8 mg Documented by: Admin: 12/14/18 20:26 Dose: 0.8 mg Documented by: Admin: 12/13/18 20:16 Dose: 0.8 mg Documented by: ANAY Zolpidem Tartrate (Ambien) 5 mg PO HSP PRN PRN Reason: Insomnia Last Admin: 12/14/18 20:33 Dose: 5 mg Documented by: ANAY Assessment and Plan - Narrative A/P Narrative: A: 1. Pubic symphysis OM: - s/p surgical biopsy on 12/13, with cultures growing pseudomonas aeruginosa and coagulase negative staph (small amount) 2. Anemia: multifact 3. CKD: Cr Cl per [place] formulla is 49 Recommendations: -Stop IV Zosyn. Start oral levofloxacin 750 mg every 48 hrs [given creatinine clearance of 49 ] which will cover both pseudomonas aeruginosa and coagulase negative staph Start date 12/13/18 Stop date 01/24/19 Follow-up labs: BMP on 12/18/18, and after that every other week ESR and CRP every other week Fax labs to [id number], attention Dr. Buitrago Follow-up appointment: January 13 at 1:45 PM Rojas Buitrago MD Infectious diseases
--- NOTE | 2018-12-16 11:31 | Discharge Summary ---
Medical - DS: Prov Patient information: Note initiated : 12/16/18 at 11:25 am Service Date, if different from initiated Date: [] Patient: Mainor Moran 73 y/o M admitted on 12/12/18 for increasing swelling to feet, pain to coccyx wounds. Chief Complaint: [] Date of admission: 12/12/18 16:52 Discharge date: 12/16/18 Primary care physician: Charlie Dowling Consults: 12/12/18 Consult to Physician [CONS] Stat Comment: Consulting Provider: Paras Andrew Reason For Exam: Physician to Consult Consult to Physician [CONS] Stat Comment: Consulting Provider: Edin Montero Reason For Exam: Physician to Consult 12/13/18 13:29 Consult to Infectious Disease [CONS] Routine Comment: osteomyelitis Consulting Provider: Rojas Buitrago Reason For Exam: Physician to Consult 12/14/18 08:25 Consult to Physician [CONS] Routine Comment: sacaral wound Consulting Provider: Barry Boswell Reason For Exam: Physician to Consult Discharging clinician: Edin Montero Medical - DS: Meds - Discharge Medications Prescriptions: Ferrous Sulfate 325 mg PO DAILY #90 tab Levofloxacin [Levaquin] 750 mg PO Q48 #21 tab oxyCODONE HCL [Roxicodone] 5 mg PO Q6HP PRN #20 tab PRN Reason: Pain Zolpidem Tartrate [Ambien] 10 mg PO HSP PRN #10 tab PRN Reason: Sleep Active and Home Medications: Home Medications multivitamin tablet 1 tab PO QDAY 11/04/17 [History Confirmed 12/12/18 Last Taken Unknown] progesterone SL 40 mg SUBLINGUAL QHS #30 each 03/10/18 [Rx Confirmed 12/12/18 Last Taken Unknown] oxycodone 5 mg tablet 5 mg PO Q6HP PRN #90 tab 11/23/18 [Rx Confirmed 12/12/18 Last Taken Unknown] zolpidem 10 mg tablet 10 mg PO HSP PRN #30 tab 11/30/18 [Rx Confirmed 12/12/18 Last Taken Unknown] Docusate Sodium [Colace] 100 mg PO DAILY 12/12/18 [History Confirmed 12/12/18 Last Taken Unknown] Finasteride [Proscar] 5 mg PO DAILY 12/12/18 [History Confirmed 12/12/18 Last Taken Unknown] Furosemide [Lasix] 40 mg PO BID 12/12/18 [History Confirmed 12/12/18 Last Taken Unknown] Gabapentin [Neurontin] 100 mg PO BID 12/12/18 [History Confirmed 12/12/18 Last Taken Unknown] Gabapentin [Neurontin] 300 mg PO TID 12/12/18 [History Confirmed 12/12/18 Last Taken Unknown] Lisinopril [Zestril] 20 mg PO DAILY 12/12/18 [History Confirmed 12/12/18 Last Taken Unknown] Oxybutynin Chloride [Ditropan] 5 mg PO HS 12/12/18 [History Confirmed 12/12/18 Last Taken Unknown] Tamsulosin [Flomax] 0.8 mg PO HS 12/12/18 [History Confirmed 12/12/18 Last Taken Unknown] buPROPion HCL [Bupropion Xl] 150 mg PO DAILY 12/12/18 [History Confirmed 12/12/18 Last Taken Unknown] Medical - DS: Hosp Hospital course: Mr. Moran is a 73 year old M with multiple medical issues, lives home with help of home health. The patient notes for the last 1 week he has been progressively getting weak. It is difficult for him to ambulate, normal activities that he could do are now difficult to do because of progressive shortness of breath. Beyond weakness and progressive shortness of breath the patient also admits to having increased swelling in his lower extremities. He has chronic lower extremity swelling that waxes and wanes, that has been going on for the last 6 months however over the last week or 2 the swelling has worsened. He also complaints of pain in the coccys and the groins The patient denies any other complaints or concerns. According to the family of friends who brought the patient in and was spoke with the ER provider the patient is also been more confused and not himself. The patient denies any bleeding from any site, no black stools or blood in the stools. He denies any abdominal pain he denies any cough chest pain headache dizziness changes in vision changes in hearing difficulty in swallowing denies any new skin rashes joint pains or easy bruising. In the emergency room on presentation patient was afebrile temperature 97, heart rate 80 blood pressure 119/43 respirations 14 saturating 97% on room air. Hemoglobin 8.8, MCV 78, WBC count 7.4, platelets 584. Sodium 136 potassium 4.2 carbonate 24 creatinine 1.9 which is at baseline glucose 104. NT proBNP is 380 The patient received IV Lasix 40, in the emergency room. Subsequent to this the blood pressure dropped, and gradually came back up again however given the drop in hemoglobin and drop in blood pressure there was a concern for upper GI bleed. The ED physician thought that the patient may have bled in the abdomen. Fecal occult stool is negative. He called the GI doctor who would be consulting for endoscopy. Given weakness, shortness of breath on exertion possible CHF, possible GI bleed the patient is being admitted as observation to the hospital Chest x-ray is negative CT abdomen and pelvis without contrast was reported as negative. (official report pending) On reviewing his PCPs note at the end of October it seems the fatigue and weakness has been going on since that time. 12/13 Patient seen and examined, no acute overnight events. The patient denies any new complaints or concerns. I spoke at length with the patient's friend who notes that the patient usually lives at home does not go out sits in his chair of bed all day long. He is noncompliant with his dietary restrictions. He also has memory issues and sometimes just confabulates. Denies any history of alcohol use. Patient's labs are stable, hemoglobin is stable. 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 Patient had a bone biopsy and bone culture sent today. I have started the patient on v ancomycin and cefepime. Infectious disease will be consulted The patient will not have an endoscopy today, as hemoglobin is stable probably tomorrow. Start the patient on liquid diet for now 12/14 Patient seen and examined, no acute overnight events. Still feels quite weak and tired. Needs assistance to get out of bed. Labs are stable hemoglobin slightly lower today than yesterday. Plan for en doscopy today. Cultures awaited on antibiotics infectious disease consulted Pubic pain improved 12/15 Pt seen examined, no acute ovenright issues, EGD planned today Hb stable cultures from bone biospy growin anaerobes and pseudomonas, abx switched to zosyn. pt does have significant scrotal edema due to lying in bed all the time, nystatin powder to be started, scrotoal support to be given. 12/16 Pt seen examined, no acute issues EGD negative, Stable for d/c bone culture pseudomonas, rm sensitive, GPC is coag neg staph, Only levoflox needed per ID d/c with 6 week of planned abx, outpatient follow up with ID In summary Pubic symphysis Osteomyelitis. - Due to pseudomonas, coag neg staph, treat with PO levofloxacin 750mg q48hrs per ID, outpatient ID follow up Microcytic Anemia- Iron def, and anemia of chr disease, egd neg, fob neg, start on iron replacement therapy. CKD- stable renal function, creat 2.2 at discharge, Fatigue and debility- needs snf placement for aggressive rehab. Scrotal wall edema- advised scrotal support, should improve with ambultion and nystatin topical application Pt s table for d/c to SNF Discharge diagnosis: Osteomyelitis - Time Spent with Patient Total time spent providing and/or coordinating discharge services: Greater than 30 minutes Medical - DS: Exam - Constitutional Vitals: Vital Signs Temp Pulse Pulse Resp BP BP Pulse Ox 12/16/18 11:11 97.3 F 70 18 120/64 94 12/16/18 08:00 97.2 F 80 18 115/64 94 12/16/18 04:00 98.7 F 71 18 121/55 98 12/15/18 23:30 98.4 F 68 20 109/53 95 12/15/18 19:52 97.3 F 81 18 128/58 96 12/15/18 16:45 71 16 104/56 100 12/15/18 16:40 70 16 83/65 100 12/15/18 16:02 98.1 F 71 14 113/56 97 12/15/18 12:00 98.1 F 71 14 113/56 97 Intake and Output 12/15/18 12/16/18 12/16/18 21:59 05:59 13:59 Intake Total 470 / 770 250 / 770 50 / 50 Output Total 1050 / 1101 51 / 1101 Balance -580 / -331 199 / -331 50 / 50 Intake: IV 50 / 150 50 / 150 50 / 50 Zosyn 4.5 gm In Dextrose 5% in 50 / 100 50 / 100 50 / 50 Water 50 ml @ 100 mls/hr IV Q6H [facility] Rx#:[id number] Oral 420 / 620 200 / 620 Output: Urine Catheter Amount 650 / 650 Uretheral ([place]) 650 / 650 Void Amount 400 / 450 50 / 450 # of times incontinent of urine Other: Meal Breakfast Percent of Meal Consumed 75% Weight 252 lb 8 oz Additional comments: Constitutional; Afebrile, cooperative, alert, not in distress. Respiratory system: Air Entry equal on both sides, No crackles or wheezing, no rhonchi. CVS- Rate rhythm regular, S1,S2 heard, no gallop, no rub. Abdomen- Soft nontender abdomen, no organomegaly, no tenderness, no guarding or rigidity, [employer] ESTIMATOR- AOOx3, moving all extremities, no gross focal deficit noted. Medical - DS: Data Labs on day of discharge: Labs from last 24 hours 12/16/18 12/16/18 03:54 03:54 WBC 7.6 RBC 3.46 L Hgb 8.9 L Hct 27.4 L MCV 78.9 L MCH 25.7 L MCHC 32.5 RDW 16.4 H Plt Count 613 H MPV 7.2 L Gran % 80.8 H Lymph % (Auto) 6.9 L Mccone % (Auto) 6.4 Eos % (Auto) 5.7 Baso % (Auto) 0.2 Gran # 6.1 Lymph # (Auto) 0.5 L Mccone # (Auto) 0.5 Eos # (Auto) 0.4 Baso # (Auto) 0 Sodium 140 Potassium 4.0 Chloride 100 Carbon Dioxide 25 Anion Gap 15.0 BUN 28 H Creatinine 2.2 H GFR Calculation 28 Glucose 156 H Uric Acid 8.5 H Calcium 8.7 Phosphorus 3.9 Magnesium 2.2 Total Bilirubin 0.3 Direct Bilirubin < 0.2 GGT 62 H AST 21 ALT 31 Alkaline Phosphatase 107 Lactate Dehydrogenase 150 Total Protein 7.1 Albumin 3.0 L Globulin 4.1 H Albumin/Globulin Ratio 0.7 L Triglycerides 144 Preliminary micro results at discharge 12/13/18 09:08 Tissue Culture - Preliminary Bone Pseudomonas aeruginosa Coagulase negative staph 12/12/18 13:02 Blood Culture - Preliminary Blood 12/12/18 13:06 Blood Culture - Preliminary Blood Medical - DS: A/P - Patient/Caregiver Discharge Instructions Activity: increase activity as tolerated Diet: Regular Diet Additional Instructions: Follow up with ID clinic in 4 weeks, 01/13/19 Follow up with PCP in 1 week Go to the ER if worsening condition or any other acute concern Please check CBC, CMP, ESR , CRP on Friday12/18/18, and then weekly for [address] times. Fax results to Dr Calloway office. Levofloacin 750mg q48hrs for total of 6 weeks planned. Last dose would be 01/25/2019 Prescriptions: Levofloxacin [Levaquin] 750 mg PO Q48 #21 tab oxyCODONE HCL [Roxicodone] 5 mg PO Q6HP PRN #20 tab PRN Reason: Pain Zolpidem Tartrate [Ambien] 10 mg PO HSP PRN #10 tab PRN Reason: Sleep - Follow up Plan Follow up with: Charlie Dowling PA-C [Primary Care Provider] - (Please call/schedule hospital follow up.) Disposition: Xfer SNF Prognosis: Fair Rehab Potential: Fair I certify that the patient requires SNF services: Yes Overall status at discharge: patient is progressing back to baseline Medical - DS: Qual - VTE Deep Vein Thrombosis/Pulmonary Embolism Present on Admission: No
[2018-12-16] MEDS ORDERED: PNEUMOCOCCAL 23-VAL P-SAC VAC 0.5 ML SYRINGE IM ONE (12:15)
--- NOTE | 2018-12-16 13:18 | Surgical Pathology Report ---
HISTOLOGY SPECIMEN MICROSCOPIC DIAGNOSIS BONE, PUBIS, CT-GUIDED NEEDLE BIOPSY: -- DENSE FIBROUS TISSUE WITH ORGANIZING HEMORRHAGE, GRANULATION TISSUE AND DEGENERATIVE CHANGE. -- NO NEOPLASIA OR MALIGNANCY IDENTIFIED. (ACP:adj) MICROSCOPIC DESCRIPTION Sections of the CT-guided pubis bone biopsy demonstrate dense fibrous tissue with foci of organizing hemorrhage and granulation tissue and focal changes suggestive of fat necrosis. There is patchy degenerative change and a few vessels have plump endothelial cells. Focal possible periosteal fibrous tissue is noted. Immunohistochemical stains are performed (adequate technical controls). Pancytokeratin plus, CD34 and CD68 stains are negative for occult carcinoma. Multiple step sections are examined. (ACP:adj) Some of the tests reported here may not have been cleared or approved by the [place]. Food and Drug Administration (FDA). However, the FDA has determined that such clearance or approval is not necessary. Pursuant to the requirements of CLIA, this laboratory has established and verified the accuracy and precision of all tests, and additional information about these tests is available upon request. All technical controls are adequate. CLINICAL HISTORY Increasing swelling to feet; pain to coccyx wounds. GROSS DESCRIPTION Received in formalin labeled with the patient information, are two cores of tissue 0.6 and 1.6 cm in length by less than 0.1 cm in diameter. Also in the container are multiple fragments of tissue less than 0.1 to 0.1 cm. Entirely submitted - one cassette. Electronically Signed by: Uday Mcintosh M.D.
[2018-12-16] MEDS ORDERED: metroNIDAZOLE 500 MG TABLET PO SCH (14:00)
--- NOTE | 2018-12-17 14:11 | Surgical Pathology Report ---
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 -- NO DYSPLASIA OR MALIGNANCY IDENTIFIED. (EBD:adj) CLINICAL HISTORY Anemia. PROCEDURAL IMPRESSION No bleeding; small hiatal hernia; (?) Robertson's. GROSS DESCRIPTION Received in formalin labeled ersophagus biopsy, are four parker-duran tissue fragments 0.2 to 0.7 cm. Entirely submitted - one cassette. (SCB:sln) Electronically Signed by: Flaquita Burt M.D.
== END 2018-12-16 13:25 | DRG 478 ==
LOC: ED 12:03 → ICU 12:03
PROVIDERS: ADMIT Internal Medicine; ATTEND Internal Medicine

== ENCOUNTER 2019-08-24 10:26 | Inpatient (IN) ==
[2019-08-24] MEDS ORDERED: PIPERACILLIN SODIUM/TAZOBACTAM 3.375 GM in DEXTROSE 5% IN WATER 50 ML IV ONE (10:42)
[2019-08-24 11:21] LABS: POC Blood Urea Nitrogen 37 mg/dl (8-23); POC CO2 27 mmol/L (22-30); POC Calcium, Ionized 1.14 mmol/L (1.16-1.32); POC Chloride 104 mmol/L (96-108); POC Creatinine 1.9 mg/dl (0.7-1.2); POC Glucose, Random 121 mg/dL (70-105); POC Potassium 3.6 mmol/L (3.3-5.1); POC Sodium 140 mmol/L (133-145)
[2019-08-24] MEDS ORDERED: 0.9 % SODIUM CHLORIDE 1,000 ML IV ONE ×2 (11:25→12:30)
[2019-08-24 12:04] LABS: Basophils # (Auto) 0 K/mcL (0.0-0.3); Basophils % (Auto) 0 % (0.0-2.0); Eosinophils # (Auto) 0 K/mcL (0.0-0.7); Eosinophils % (Auto) 0.3 % (0.0-7.0); Granulocytes % (Auto) 94.4 % (38.0-78.0); Hematocrit 36.5 % (41.0-55.0); Hemoglobin 12.1 g/dL (13.5-16.5); Lymphocytes # (Auto) 0.1 K/mcL (1.5-4.8); Lymphocytes % (Auto) 1.3 % (15.5-49.0); Mean Cell Volume 80.3 fL (80.0-100.0); Mean Corpuscular HGB Conc 33.1 g/dL (31.0-36.0); Mean Platelet Volume 7.5 fL (7.4-10.4); Monocytes # (Auto) 0.4 K/mcL (0.1-0.9); Platelet Count 359 K/mcL (140-440); RBC 4.55 M/mcL (4.50-5.90); Red Cell Distribution Width 17.1 % (11.5-14.5); WBC 9.9 K/mcL (4.5-11.0)
[2019-08-24 12:07] LABS: Creatine Kinase 104 IU/L (24-195)
--- NOTE | 2019-08-24 12:19 | Cat Scan Report ---
CLINICAL INFORMATION: Sepsis. Decreased mental status COMPARISON: None. TECHNIQUE: 2.5 mm helical slices were obtained in the skull base to vertex. Following reconstruction, axial reformatted images were reviewed at bone and parenchymal windows. The exam was performed using radiation dose optimization techniques including, but not limited to, automated exposure control, adjustment of the mA and/or kV according to patient size and use of iterative reconstruction technique. FINDINGS: The ventricles, sulci, fissures, and cisterns are symmetrically enlarged compatible with mild age-related atrophy. No extra-axial fluid collections are identified. The cerebrum, brainstem and cerebellum are unremarkable. There is no evidence of hemorrhage, mass effect, or edema. Bone windows show no osseous abnormality. IMPRESSION: Mild age-related atrophy - otherwise negative Interpreted and Authenticated by: Mitchell Wei 08/24/19
--- NOTE | 2019-08-24 12:20 | XRay Report ---
CLINICAL INFORMATION: altered loc, tachycardia, fever COMPARISON: 12/12/2018 FINDINGS: Heart size, mediastinum and pulmonary vasculature are accentuated by suboptimal inspiratory result, portable technique and lordotic positioning. There is minor bibasilar atelectasis. No effusions. IMPRESSION: Minor bibasilar atelectasis Interpreted and Authenticated by: Mitchell Wei 08/24/19
[2019-08-24 12:28] LABS: ALT/SGPT 13 U/l (0-40); AST/SGOT 18 U/l (0-37); Albumin 3.6 gm/dL (3.2-5.2); Albumin/Globulin Ratio 0.9 (1.0-2.3); Alkaline Phosphatase 73 U/L (39-117); Bilirubin,Total 0.4 mg/dL (0.0-1.0); Blood Urea Nitrogen 32 mg/dl (8-23); Calcium 9.1 mg/dl (8.6-10.4); Carbon Dioxide 22 mmol/L (22-30); Chloride 103 mmol/L (96-108); Globulin 3.9 gm/dL (2.2-3.7); Glomerular Filtration Rate 36; Glucose 119 mg/dL (70-105)
--- NOTE | 2019-08-24 12:45 | Cat Scan Report ---
CLINICAL INFORMATION: Sepsis COMPARISON: Abdomen and pelvic CT 12/12/2018 and 07/28/2019 TECHNIQUE: 0.625 mm helical slices were obtained from the mid heart through the subtrochanteric regions. Following reconstruction, 2.5 mm sagittal, coronal and axial reformatted images were processed and reviewed at bone and soft tissue windows.The exam was performed using radiation dose optimization techniques including, but not limited to, automated exposure control, adjustment of the mA and/or kV according to patient size and use of iterative reconstruction technique. FINDINGS: Lung bases show only minimal scattered scarring and/or atelectasis. No effusion. The visualized heart is mildly enlarged. Small hiatal hernia is unchanged Abdominal images show the noncontrast gallbladder and bile ducts, liver, both kidneys, adrenal glands, spleen, pancreas and aorta are normal in size configuration and attenuation without focal lesion. There is no free air, free fluid or adenopathy. Pelvic images show urinary bladder, prostate and seminal vesicles are normal. A thick walled cutaneous ulcer in left posterior perianal region is unchanged in size spanning 5 x 1.6 cm. This was previously described as an abscess, but given the imaging stability over the past nine months, it is most likely a cutaneous ulcer with subdermal fibrosis. Please correlate with physical exam findings. Mild fibrosis seen throughout surrounding perianal soft tissues which is stable. Sigmoid colectomy changes noted with colostomy in the left lower quadrant. The remaining large bowel is normal. There is a very large ventral wall hernia spanning 13 x 14 cm containing multiple loops of nonincarcerated, nonobstructed small bowel loops is unchanged. The remainder of the small bowel and stomach are normal. Intramedullary sclerosis and cortical irregularity of the pubic symphysis and superior pubic rami are unchanged compatible with chronic osteitis pubis. Penile implants appear unremarkable. IMPRESSION: 1. No source for sepsis identified 2. 5 x 1.6 cm large cutaneous ulcer with associated fibrosis in the subdermal left perianal soft tissues has maintained stability for the last eight months. Based on appearance and stability, it is likely a cutaneous ulcer with fibrosis rather than an abscess. 3. Osteitis pubis that no change 4. 13 cm ventral hernia containing multiple loops of nonobstructed nonincarcerated small bowel - stable Interpreted and Authenticated by: Mitchell Wei 08/24/19
[2019-08-24] MEDS ORDERED: ACETAMINOPHEN 1,000 MG/100 ML BOTTLE IV ONE (12:48)
--- NOTE | 2019-08-24 13:26 | Emergency Department Note ---
Altered Mental Status HPI - General Chief Complaint: Altered Mental Status Stated Complaint: possible sepsis Time Seen by Provider: 08/24/19 10:39 Source: patient Mode of arrival: EMS Limitations: altered mental status - History of Present Illness HPI Narrative: 74-year-old male presents with altered level of consciousness. Brought in by EMS. Has a history of intermittent cellulitis to the scrotum and believes he has cellulitis again. Has chills and fever at home. Feels very weak and shaky. Progressively getting worse over the last couple days but especially this morning. Positive nausea, no vomiting or diarrhea. Patient is giving this hist ory as he is the only one in the room present during exam and he is confused at times. He thinks it is 1997. Unfortunately this is the only history available right now. He denies dysuria or frequency. States he does have significant abdominal pain the last 48 hours. States he has not had abdominal pain like this in the past even when he had cellulitis in the scrotum. States the scrotum has been red and large for at least a week. EMS reports incontinence. - Related Data Home Medications Medication Instructions Recorded Confirmed multivitamin 1 tab PO QDAY 11/04/17 07/14/19 bupropion HCl 150 mg 24 hr tablet, 150 mg PO DAILY PRN 03/16/19 07/14/19 extended release Previous Rx's Medication Instructions Recorded Ferrous Sulfate 325 mg PO DAILY #90 tab 12/16/18 furosemide 40 mg tablet 40 mg PO QAM #90 tab 12/25/18 zolpidem 10 mg tablet 10 mg PO QHS PRN #30 tab 02/01/19 bupropion HCl 150 mg 24 hr tablet, 150 mg PO QAM #90 tab 04/05/19 extended release finasteride 5 mg tablet 5 mg PO DAILY #90 tab 04/14/19 gabapentin 300 mg capsule 300 mg PO TID #270 cap 06/21/19 zippered compression stockings #1 ea 06/22/19 gabapentin 100 mg capsule 100 mg PO TID #90 cap 07/05/19 varenicline 0.5 mg (11)-1 mg (42) See Rx Instructions PO PER PKG DIR 07/20/19 tablets in a dose pack #42 tab oxybutynin chloride 5 mg tablet 10 mg PO HS #180 tab 07/21/19 hydrocodone 10 mg-acetaminophen 1 tab PO QID #112 tab 08/06/19 325 mg tablet tamsulosin 0.4 mg capsule 0.8 mg PO QDAY #90 cap 08/23/19 Allergies Allergy/AdvReac Type Severity Reaction Status Date / Time No Known Drug Allergies Allergy Verified 08/24/19 10:32 Review of Systems All systems ED: reviewed and negative except as stated. Past Medical History - Past Medical History [facility] Narrative: Medical History (Last Reviewed 07/14/19 @ 13:20 by Estelle Sapp, OLMAN) Localized edema due to fluid overload (Chronic) Secondary hyperparathyroidism of renal origin (Chronic) Anemia in stage 4 chronic kidney disease (Chronic) Benign hypertension with CKD (chronic kidney disease) stage IV (Chronic) CKD (chronic kidney disease) stage 4, GFR 15-29 ml/min (Chronic) Postoperative ileus (Acute) Fall (Acute) Multiple contusions (Acute) Skin tear of right upper arm without complication (Acute) Cellulitis (Acute) Renal osteodystrophy (Chronic) Vitamin D deficiency (Chronic) Hypervolemia (Chronic) Hyperuricemia (Chronic) Parastomal hernia (Resolved) Cellulitis of hand, right (Acute) Cellulitis (Acute) Cellulitis of scrotum (Acute) Chest pain (Acute) Erectile dysfunction (Chronic) Mass of anus (Chronic) Urinary retention (Chronic) Testosterone deficiency (Chronic) 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) Osteoarthrosis (Chronic) Hypertrophy of prostate with urinary retention (Chronic 02/08/13) Colon malignancy (Resolved) Diabetes mellitus type 2 with neurological manifestations (Resolved) Hyperlipemia (Resolved) Ingrown nail (Resolved) Onychomycosis (Resolved) Past Surgical History (Last Reviewed 07/14/19 @ 13:20 by Estelle Sapp RN) History of colonoscopy (Chronic 02/09/09) History of surgery (Chronic 08/31/15) History of hernia surgery (Acute) History of penile implant (Acute) History of colon resection (Resolved) History of colostomy (Resolved) History of total knee arthroplasty (Resolved 05/06/14) Medical history: Reports: cancer (colorectal - with bag ostomy 2007. Status post radiation.), DVT (Posttraumatic, right lower extremity.), DM, hyperlipidemia, hypertension, renal disease, other (recurrent scrotal cellulitis (patient says testicular) and lower extremity cellulitis; recurrenl; enlarged heart. NO DVT. Erectile dysdfuncion). Denies: CAD (coronary artery disease), CVA, GERD, myocardial infarction, thyroid disease, TIA Psychiatric history: Reports: anxiety, depression Surgical history ED: Reports: cancer surgery (colostomy/partial (?) colectomy 2007.), cataract (bilat.), herniorrhaphy, knee replacement (Bilateral), other (penile implant.) - Social History smoking status: Former smoker Alcohol use: Reports: Rarely (Occasional wine or beer once per week.) Drug use: Reports: none Physical Exam Limitations: altered mental status General appearance: other (Patient is awake and speaking but pleasantly confused. Is able to give some history but is only aware of person and place, not of time, date, and is only vaguely of situation.) Head: atraumatic, normocephalic, normal inspection Eye: Present: normal appearance. Absent: conjunctival injection ENT: Present: mucous membranes moist Chest: Present: symmetric chest wall rise Respiratory: Present: normal lung sounds bilaterally. Absent: respiratory distress, rales/crackles, accessory muscle use Cardiovascular: Present: tachycardia, normal heart sounds Abdominal: Present: soft, tenderness (RLQ, LLQ). Absent: distention, guarding, rebound, mass : Present: other (Scrotum with diffuse edema and redness. Tender. Patient incontinent of urine.) Extremities: Present: normal capillary refill Neurological: Present: alert, oriented X3 Psychiatric: Present: normal affect, normal mood Skin: Present: warm, dry, intact, erythema (scrotum and spreading down legs. + edema., please see assessment). Absent: rash, hives, cyanosis, diaphoresis Course Course Narrative: At 1330 I did speak with the hospitalist, Dr. Arriaga. He would like us to consult with infectious disease, Dr. Buitrago so we do have a call into him. Dr. Arriaga would like us to get scrotal US which has been order. AT [address] arriaga. He will consult on pt as needed. he would like us to start Vancomycin which was ordered. @1500 dr arriaga agrees to accept pt Vital Signs Temperature 99.7 F H 08/24/19 10:27 Pulse Rate 118 H 08/24/19 10:27 Respiratory Rate 20 08/24/19 10:27 Blood Pressure 123/59 08/24/19 10:27 Pulse Oximetry (%) 96 08/24/19 10:27 Temperature 99.6 F H 08/24/19 13:39 Pulse Rate 97 H 08/24/19 15:18 Respiratory Rate 16 08/24/19 15:18 Blood Pressure 113/51 08/24/19 15:17 Pulse Oximetry (%) 98 08/24/19 15:18 Altered Mental Status - Lab Data Lab results reviewed: Yes I reviewed the patient's lab results. Result diagrams: 08/24/19 11:08 08/24/19 11:08 Lab Results 08/24/19 08/24/19 08/24/19 Range/Units 10:41 11:08 11:08 WBC 9.9 (4.5-11.0) K/mcL RBC 4.55 (4.50-5.90) M/mcL Hgb 12.1 L (13.5-16.5) g/dL Hct 36.5 L (41.0-55.0) % POC Hct (41.0-55.0) % MCV 80.3 (80.0-100.0) fL MCH 26.6 (26.0-34.0) pg MCHC 33.1 (31.0-36.0) g/dL RDW 17.1 H (11.5-14.5) % Plt Count 359 (140-440) K/mcL MPV 7.5 (7.4-10.4) fL Gran % 94.4 H (38.0-78.0) % Lymph % (Auto) 1.3 L (15.5-49.0) % [place] % (Auto) 4.0 (1.0-12.0) % Eos % (Auto) 0.3 (0.0-7.0) % Baso % (Auto) 0 (0.0-2.0) % Gran # 9.3 H (1.8-8.0) K/mcL Lymph # (Auto) 0.1 L (1.5-4.8) K/mcL [place] # (Auto) 0.4 (0.1-0.9) K/mcL Eos # (Auto) 0 (0.0-0.7) K/mcL Baso # (Auto) 0 (0.0-0.3) K/mcL Band Neutrophils % Not Reportable VBG Lactic Acid (0.5-2.0) mmol/L POC Sodium (133-145) mmol/L Sodium 140 (133-145) mmol/L POC Potassium (3.3-5.1) mmol/L Potassium 3.6 (3.3-5.1) mmol/L POC Chloride (96-108) mmol/L Chloride 103 (96-108) mmol/L Carbon Dioxide 22 (22-30) mmol/L POC Total CO2 (22-30) mmol/L Anion Gap 15.0 (8-16) POC BUN (8-23) mg/dl BUN 32 H (8-23) mg/dl Creatinine 1.8 H (0.7-1.2) mg/dl POC Creatinine (0.7-1.2) mg/dl GFR Calculation 36 Glucose 119 H (70-105) mg/dL POC Glucose (70-105) mg/dL Calcium 9.1 (8.6-10.4) mg/dl POC WB Ioniz Calcium (1.16-1.32) mmol/L Total Bilirubin 0.4 (0.0-1.0) mg/dL AST 18 (0-37) U/l ALT 13 (0-40) U/l Alkaline Phosphatase 73 (39-117) U/L Total Creatine Kinase (24-195) IU/L Troponin T (0-0.03) ng/ml Total Protein 7.5 (5.9-8.4) gm/dL Albumin 3.6 (3.2-5.2) gm/dL Globulin 3.9 H (2.2-3.7) gm/dL Albumin/Globulin Ratio 0.9 L (1.0-2.3) Procalcitonin (<0.10) ng/mL Urine Color Urine Appearance Urine pH (5.0-9.0) Ur Specific [place] (1.000-1.035) Urine Protein (NEG) mg/dL Urine Glucose (UA) (NEG) mg/dL Urine Ketones (NEG) mg/dL Urine Occult Blood (<0.03) mg/dL Urine Nitrate (NEG) Urine Bilirubin (NEG) mg/dL Urine Urobilinogen (NEG) mg/dL Ur Leukocyte Esterase (NEG) /uL Urine RBC (0-1) /hpf Urine WBC (0-4) /hpf Ur Squamous Epith Cells (0-4) /hpf Urine Bacteria (0) /hpf Urine Mucus (0) /hpf 08/24/19 08/24/19 08/24/19 Range/Units 11:08 11:08 11:08 WBC (4.5-11.0) K/mcL RBC (4.50-5.90) M/mcL Hgb (13.5-16.5) g/dL Hct (41.0-55.0) % POC Hct 36.0 L (41.0-55.0) % MCV (80.0-100.0) fL MCH (26.0-34.0) pg MCHC (31.0-36.0) g/dL RDW (11.5-14.5) % Plt Count (140-440) K/mcL MPV (7.4-10.4) fL Gran % (38.0-78.0) % Lymph % (Auto) (15.5-49.0) % [place] % (Auto) (1.0-12.0) % Eos % (Auto) (0.0-7.0) % Baso % (Auto) (0.0-2.0) % Gran # (1.8-8.0) K/mcL Lymph # (Auto) (1.5-4.8) K/mcL [place] # (Auto) (0.1-0.9) K/mcL Eos # (Auto) (0.0-0.7) K/mcL Baso # (Auto) (0.0-0.3) K/mcL Band Neutrophils % VBG Lactic Acid 2.4 H (0.5-2.0) mmol/L POC Sodium 140 (133-145) mmol/L Sodium (133-145) mmol/L POC Potassium 3.6 (3.3-5.1) mmol/L Potassium (3.3-5.1) mmol/L POC Chloride 104 (96-108) mmol/L Chloride (96-108) mmol/L Carbon Dioxide (22-30) mmol/L POC Total CO2 27 (22-30) mmol/L Anion Gap (8-16) POC BUN 37 H (8-23) mg/dl BUN (8-23) mg/dl Creatinine (0.7-1.2) mg/dl POC Creatinine 1.9 H (0.7-1.2) mg/dl GFR Calculation Glucose (70-105) mg/dL POC Glucose 121 H (70-105) mg/dL Calcium (8.6-10.4) mg/dl POC WB Ioniz Calcium 1.14 L (1.16-1.32) mmol/L Total Bilirubin (0.0-1.0) mg/dL AST (0-37) U/l ALT (0-40) U/l Alkaline Phosphatase (39-117) U/L Total Creatine Kinase 104 (24-195) IU/L Troponin T < 0.01 (0-0.03) ng/ml Total Protein (5.9-8.4) gm/dL Albumin (3.2-5.2) gm/dL Globulin (2.2-3.7) gm/dL Albumin/Globulin Ratio (1.0-2.3) Procalcitonin (<0.10) ng/mL Urine Color Urine Appearance Urine pH (5.0-9.0) Ur Specific [place] (1.000-1.035) Urine Protein (NEG) mg/dL Urine Glucose (UA) (NEG) mg/dL Urine Ketones (NEG) mg/dL Urine Occult Blood (<0.03) mg/dL Urine Nitrate (NEG) Urine Bilirubin (NEG) mg/dL Urine Urobilinogen (NEG) mg/dL Ur Leukocyte Esterase (NEG) /uL Urine RBC (0-1) /hpf Urine WBC (0-4) /hpf Ur Squamous Epith Cells (0-4) /hpf Urine Bacteria (0) /hpf Urine Mucus (0) /hpf 08/24/19 08/24/19 Range/Units 11:08 13:39 WBC (4.5-11.0) K/mcL RBC (4.50-5.90) M/mcL Hgb (13.5-16.5) g/dL Hct (41.0-55.0) % POC Hct (41.0-55.0) % MCV (80.0-100.0) fL MCH (26.0-34.0) pg MCHC (31.0-36.0) g/dL RDW (11.5-14.5) % Plt Count (140-440) K/mcL MPV (7.4-10.4) fL Gran % (38.0-78.0) % Lymph % (Auto) (15.5-49.0) % [place] % (Auto) (1.0-12.0) % Eos % (Auto) (0.0-7.0) % Baso % (Auto) (0.0-2.0) % Gran # (1.8-8.0) K/mcL Lymph # (Auto) (1.5-4.8) K/mcL [place] # (Auto) (0.1-0.9) K/mcL Eos # (Auto) (0.0-0.7) K/mcL Baso # (Auto) (0.0-0.3) K/mcL Band Neutrophils % VBG Lactic Acid (0.5-2.0) mmol/L POC Sodium (133-145) mmol/L Sodium (133-145) mmol/L POC Potassium (3.3-5.1) mmol/L Potassium (3.3-5.1) mmol/L POC Chloride (96-108) mmol/L Chloride (96-108) mmol/L Carbon Dioxide (22-30) mmol/L POC Total CO2 (22-30) mmol/L Anion Gap (8-16) POC BUN (8-23) mg/dl BUN (8-23) mg/dl Creatinine (0.7-1.2) mg/dl POC Creatinine (0.7-1.2) mg/dl GFR Calculation Glucose (70-105) mg/dL POC Glucose (70-105) mg/dL Calcium (8.6-10.4) mg/dl POC WB Ioniz Calcium (1.16-1.32) mmol/L Total Bilirubin (0.0-1.0) mg/dL AST (0-37) U/l ALT (0-40) U/l Alkaline Phosphatase (39-117) U/L Total Creatine Kinase (24-195) IU/L Troponin T (0-0.03) ng/ml Total Protein (5.9-8.4) gm/dL Albumin (3.2-5.2) gm/dL Globulin (2.2-3.7) gm/dL Albumin/Globulin Ratio (1.0-2.3) Procalcitonin 19.68 (<0.10) ng/mL Urine Color Yellow Urine Appearance Clear Urine pH 6.0 (5.0-9.0) Ur Specific [place] 1.015 (1.000-1.035) Urine Protein Neg (NEG) mg/dL Urine Glucose (UA) Negative (NEG) mg/dL Urine Ketones Neg (NEG) mg/dL Urine Occult Blood 0.03 A (<0.03) mg/dL Urine Nitrate Neg (NEG) Urine Bilirubin Neg (NEG) mg/dL Urine Urobilinogen Neg (NEG) mg/dL Ur Leukocyte Esterase Neg (NEG) /uL Urine RBC < 1 (0-1) /hpf Urine WBC 1 (0-4) /hpf Ur Squamous Epith Cells < 1 (0-4) /hpf Urine Bacteria 0 (0) /hpf Urine Mucus Few (0) /hpf - Radiology Data Radiology results reviewed: Yes I reviewed the patient's radiology results. Disposition Pt seen by MASTER CERTIFIED RV TECHNICIAN/PA only: Yes Clinical Impression: Altered mental status, Sepsis, Cellulitis, scrotum Disposition: Xfer As Inpt ([facility]) Condition: Serious Referrals: Charlie Dowling PA-C [Primary Care Provider] - Time of Disposition: 15:50
[2019-08-24] MEDS ORDERED: VANCOMYCIN PER PHARMACY IV ONE (13:35)
[2019-08-24 14:08] LABS: Appearance,Urine CLEAR; Bacteria,Urine 0 /hpf (0); Bilirubin,Urine NEG (NEG); Color,Urine YELLOW; Glucose,Urine (UA) NEGATIVE (NEG); Ketones,Urine NEG (NEG); Leukocyte Esterase,Urine NEG /uL (NEG); Mucus,Urine FEW /hpf (0); Nitrate,Urine NEG (NEG); Protein,Urine NEG (NEG); Specific Gravity,Urine 1.015 (1.000-1.035); Urine Blood 0.03 mg/dL (<0.03); Urine RBC < 1 /hpf (0-1); Urine Squamous Epithelial Cell < 1 /hpf (0-4); Urine WBC 1 /hpf (0-4); Urobilinogen,Urine NEG (NEG)
[2019-08-24] MEDS ORDERED: VANCOMYCIN 1,500 MG in 0.9 % SODIUM CHLORIDE 500 ML IV ONE (14:15)
--- NOTE | 2019-08-24 15:23 | Internal Med History&Physical ---
Medical - H&P: [facility] Patient information: Note initiated : 08/24/19 at 3:16 pm Service Date, if different from initiated Date: [] Patient: Mainor Moran a 74 y/o M admitted on for Possible Sepsis. Chief Complaint: [] History of present illness: Mr. Moran is a 74 year old M Presents to the ED for weakness and altered mental state. He arrives via the EMS. I am been having a difficult time getting history from him. I asked if he brought himself and or if he had some nails bring him and he said he had some Librium and but could not remember who. But per notes he was brought in by EMS. Not sure who called them. And try to obtain history from him he admits not feeling well and weakness when I guide him with questioning. But otherwise I cannot get much of a history from him. He says his scrotum is swollen off and on frequently but perhaps it is little more swollen and more red as well today. Little bit tender to the touch. He also reports fevers. Denies any chest pain or shortness of breath any bowel changes. No stomach pain. Has a history of scrotal cellulitis. has also had a history of pubic symphysis osteomyelitis. CT abdomen pelvis showed no acute source of sepsis did show a large 5 x 1.6 cm large cutaneous ulcer associated fibrosis in the perineal soft tissues appear to be stable from previous imaging. Ultrasound of scrotum showed cellulitis no abscess or deeper structures noted per discussion with ER provider. Review of Systems: Pertinent positives as above. Denies headache/nausea/vomiting/chest or abdominal pain/cough/dyspnea/diarrhea. Remaining 10 point review of system reviewed and negative Medical - H&P: PM Medical history: Medical History (Last Reviewed 07/14/19 @ 13:20 by Estelle Sapp RN) Localized edema due to fluid overload (Chronic) Secondary hyperparathyroidism of renal origin (Chronic) Anemia in stage 4 chronic kidney disease (Chronic) Benign hypertension with CKD (chronic kidney disease) stage IV (Chronic) CKD (chronic kidney disease) stage 4, GFR 15-29 ml/min (Chronic) Postoperative ileus (Acute) Fall (Acute) Multiple contusions (Acute) Skin tear of right upper arm without complication (Acute) Cellulitis (Acute) Renal osteodystrophy (Chronic) Vitamin D deficiency (Chronic) Hypervolemia (Chronic) Hyperuricemia (Chronic) Parastomal hernia (Resolved) Cellulitis of hand, right (Acute) Cellulitis (Acute) Cellulitis of scrotum (Acute) Chest pain (Acute) Erectile dysfunction (Chronic) Mass of anus (Chronic) Urinary retention (Chronic) Testosterone deficiency (Chronic) 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) Osteoarthrosis (Chronic) Hypertrophy of prostate with urinary retention (Chronic 02/08/13) Colon malignancy (Resolved) Diabetes mellitus type 2 with neurological manifestations (Resolved) Hyperlipemia (Resolved) Ingrown nail (Resolved) Onychomycosis (Resolved) Past Surgical History (Last Reviewed 07/14/19 @ 13:20 by Estelle aSpp RN) History of colonoscopy (Chronic 02/09/09) History of surgery (Chronic 08/31/15) History of hernia surgery (Acute) History of penile implant (Acute) History of colon resection (Resolved) History of colostomy (Resolved) History of total knee arthroplasty (Resolved 05/06/14) Family History (Last Reviewed 07/14/19 @ 13:20 by Estelle Sapp RN) Unknown Alcohol abuse Type 2 diabetes mellitus Son Schizophrenia Social History (Last Updated 07/14/19 @ 13:37 by Jj Pickett MD) Former smoker Occasional alcohol Ablates with a cane Lives by himself Medical - H&P: Meds Home Medications Medication Instructions Recorded Confirmed Type multivitamin 1 tab PO QDAY 11/04/17 07/14/19 History Ferrous Sulfate 325 mg PO DAILY #90 tab 12/16/18 07/14/19 Rx furosemide 40 mg tablet 40 mg PO QAM #90 tab 12/25/18 07/14/19 Rx zolpidem 10 mg tablet 10 mg PO QHS PRN #30 tab 02/01/19 07/14/19 Rx bupropion HCl 150 mg 24 hr tablet, 150 mg PO DAILY PRN 03/16/19 07/14/19 History extended release bupropion HCl 150 mg 24 hr tablet, 150 mg PO QAM #90 tab 04/05/19 07/14/19 Rx extended release finasteride 5 mg tablet 5 mg PO DAILY #90 tab 04/14/19 07/14/19 Rx gabapentin 300 mg capsule 300 mg PO TID #270 cap 06/21/19 07/14/19 Rx zippered compression stockings #1 ea 06/22/19 07/14/19 Rx gabapentin 100 mg capsule 100 mg PO TID #90 cap 07/05/19 07/14/19 Rx varenicline 0.5 mg (11)-1 mg (42) See Rx Instructions PO PER PKG DIR 07/20/19 Rx tablets in a dose pack #42 tab oxybutynin chloride 5 mg tablet 10 mg PO HS #180 tab 07/21/19 Rx hydrocodone 10 mg-acetaminophen 1 tab PO QID #112 tab 08/06/19 Rx 325 mg tablet tamsulosin 0.4 mg capsule 0.8 mg PO QDAY #90 cap 08/23/19 Rx Allergies Allergy/AdvReac Type Severity Reaction Status Date / Time No Known Drug Allergies Allergy Verified 08/24/19 10:32 Medical - H&P: Exam - Constitutional Vitals: Temp Pulse Resp BP Pulse Ox 99.6 F H 109 H 29 H 167/154 97 08/24/19 13:39 08/24/19 12:21 08/24/19 12:33 08/24/19 12:47 08/24/19 12:21 Exam: General: lethargic, No acute Distress Eyes/N/T: EOMI, PEERL, DMM Head/Neck: neck supple, normocephalic atraumatic CV: RRR, No murmurs, normal s1/s2 Pulm: Clear b/l, no wheezing/rhonchi/rales Abd: soft, nontender, +BS x4, 2 burnt Ext: no clubbing/cyanosis/edema : Scrotum edematous erythematous indurated and mildly tender to touch Neuro: Lethargic, falls asleep on me during interview but no focal deficits, moves all extremities to command, CN 2-12 grossly intact, symmetrical strength b/l upper/lower, sensations intact b/l upper/lower Skin: warm/dry Medical - H&P: Reslt - Labs CBC & Chem 7: 08/24/19 11:08 08/24/19 11:08 Labs: Short CBC 08/24/19 Range/Units 11:08 WBC 9.9 (4.5-11.0) K/mcL Hgb 12.1 L (13.5-16.5) g/dL Hct 36.5 L (41.0-55.0) % Plt Count 359 (140-440) K/mcL BMP 08/24/19 11:08 Sodium 140 Potassium 3.6 Chloride 103 Carbon Dioxide 22 BUN 32 H Creatinine 1.8 H Glucose 119 H Calcium 9.1 Cardiac Enzymes 08/24/19 08/24/19 Range/Units 11:08 11:08 Total Creatine Kinase 104 (24-195) IU/L Troponin T < 0.01 (0-0.03) ng/ml Liver Function 08/24/19 Range/Units 11:08 Total Bilirubin 0.4 (0.0-1.0) mg/dL AST 18 (0-37) U/l ALT 13 (0-40) U/l Alkaline Phosphatase 73 (39-117) U/L Albumin 3.6 (3.2-5.2) gm/dL Urine 08/24/19 Range/Units 13:39 Urine Color Yellow Urine Appearance Clear Urine pH 6.0 (5.0-9.0) Ur Specific [place] 1.015 (1.000-1.035) Urine Protein Neg (NEG) mg/dL Urine Glucose (UA) Negative (NEG) mg/dL - Impressions CT abdomen pelvis with no acute sources of the infection per read. Scrotal ultrasound showing cellulitis per discussion with ER provider, do not have the report yet Medical - H&P: A/P - Narrative A/P Narrative: A: *Cellulitis of the scrotum: *Sepsis: *Encephalopathy (lethargy): 2/2 above *CKD IIIb (base Cr~1.7-1.8): 2/2 above *BPH: *Chronic LBP: *Depression/anxiety: *Obesity: * P: -vanc/zosyn; pending BC -ID following -trend PCT -IVF's, f/u lactate - -hold home lasix for now - -ppx: lovenox full code
--- NOTE | 2019-08-24 15:27 | Ultrasound Report ---
CLINICAL INFORMATION: redness, swelling to scrotum COMPARISON: None. FINDINGS: Bilateral testicular atrophy compatible with advanced age appreciated: The right is 2.6 x 1.8 cm and the left is 2.7 x 1.7 cm. Scattered testicular microlithiasis noted. There is a 2 mm cyst within the superior testicular parenchyma. No testicular mass. Both epididymides are normal: the right is 1.1 x 0.7 centimeters and the left is 1.1 x 0.7 cm. 8 mm cyst noted in the right epididymal head and a 5 mm cyst left epididymal head. Small bilateral hydroceles noted. The scrotal skin is diffusely thickened with increased color flow suggesting cellulitis. IMPRESSION: 1. Diffuse scrotal cellulitis. 2. Small bilateral hydrocele 3. Testicular atrophy compatible with advanced age 4. Small epididymal cyst. Interpreted and Authenticated by: Mitchell Wei 08/24/19
[2019-08-24 16:15] LABS: Band Neutrophils % 8 % (0-10); Lymphocytes % 2 % (15-49); Monocytes % (Manual) 2 % (1-12); Platelet Estimate NORMAL (NORMAL); RBC Morphology NORMAL (NORMAL); Segmented Neutrophils % 88 % (38-78)
[2019-08-24] MEDS ORDERED: LACTATED RINGERS 1,000 ML IV ONE (16:33)
[2019-08-24] MEDS ORDERED: ONDANSETRON 4 MG/2 ML VIAL IV PRN (17:13)
[2019-08-24] MEDS ORDERED: PROMETHAZINE 25 MG/ML VIAL IV PRN (17:13)
[2019-08-24] MEDS ORDERED: IPRATROPIUM/ALBUTEROL 3 ML AMPUL.NEB NEB PRN (17:13)
[2019-08-24] MEDS ORDERED: VANCOMYCIN PER PHARMACY IV SCH (17:13)
[2019-08-24] MEDS ORDERED: SENNOSIDES 1 TABLET PO PRN (17:13)
[2019-08-24] MEDS: PIPERACILLIN SODIUM/TAZOBACTAM 3.375 GM in DEXTROSE 5% IN WATER 50 ML IV SCH ×2 (18:26→23:53)
[2019-08-24] MEDS: 0.9 % SODIUM CHLORIDE 1,000 ML IV SCH (18:27)
[2019-08-24] MEDS: ACETAMINOPHEN 325 MG TABLET PO PRN (18:37)
[2019-08-24] MEDS: DOCUSATE SODIUM 100 MG CAPSULE PO SCH (20:37)
[2019-08-24] MEDS: 0.9 % SODIUM CHLORIDE 10 ML SYRINGE IV SCH (20:37)
[2019-08-24] MEDS ORDERED: VANCOMYCIN 500 MG in 0.9 % SODIUM CHLORIDE 100 ML IV ONE (21:00)
[2019-08-24] MEDS: HYDROcodone/APAP 10/325MG TABLET PO PRN (21:46)
[2019-08-24] MEDS: ZOLPIDEM 5 MG TABLET PO PRN (21:47)
[2019-08-24] MEDS ORDERED: MELATONIN 3 MG TABLET PO PRN (22:01)
[2019-08-24] MEDS ORDERED: CLINDAMYCIN 600 MG/4 ML VIAL ONE (22:08)
[2019-08-24] MEDS: CLINDAMYCIN 900 MG in DEXTROSE 5% IN WATER 50 ML IV SCH (22:15)
[2019-08-24] MEDS ORDERED: LACTATED RINGERS 250 ML IV ONE (23:06)
[2019-08-24] MEDS ORDERED: 0.9 % SODIUM CHLORIDE 250 ML IV SCH (23:15)
[2019-08-24] MEDS ORDERED: NOREPINEPHRINE BITARTRATE 16 MG in 0.9 % SODIUM CHLORIDE 234 ML IV SCH (23:15)
[2019-08-24] MEDS ORDERED: NOREPINEPHRINE BITARTRATE 16 MG in 0.9 % SODIUM CHLORIDE 234 ML IV PRN (23:23)
[2019-08-24] MEDS: LACTATED RINGERS 250 ML IV PRN (23:54)
[2019-08-25] MEDS: LACTATED RINGERS 250 ML IV PRN (00:59)
[2019-08-25] MEDS ORDERED: NOREPINEPHRINE BITARTRATE 4 MG/4 ML VIAL IV ONE (01:15)
[2019-08-25] MEDS: 0.9 % SODIUM CHLORIDE 250 ML IV SCH ×2 (01:29→13:03)
[2019-08-25] MEDS ORDERED: CLINDAMYCIN 600 MG/4 ML VIAL ONE (04:12)
[2019-08-25] MEDS: 0.9 % SODIUM CHLORIDE 1,000 ML IV SCH (05:26)
[2019-08-25] MEDS: PIPERACILLIN SODIUM/TAZOBACTAM 3.375 GM in DEXTROSE 5% IN WATER 50 ML IV SCH (05:26)
[2019-08-25] MEDS: 0.9 % SODIUM CHLORIDE 10 ML SYRINGE IV SCH ×3 (05:43→21:34)
[2019-08-25 05:51] LABS: Hematocrit 28.2 % (41.0-55.0); Hemoglobin 9.5 g/dL (13.5-16.5); Mean Cell Volume 80.3 fL (80.0-100.0); Mean Corpuscular HGB Conc 33.8 g/dL (31.0-36.0); Mean Platelet Volume 7.7 fL (7.4-10.4); Platelet Count 293 K/mcL (140-440); RBC 3.52 M/mcL (4.50-5.90); Red Cell Distribution Width 16.7 % (11.5-14.5); WBC 11.7 K/mcL (4.5-11.0)
[2019-08-25] MEDS: CLINDAMYCIN 900 MG in DEXTROSE 5% IN WATER 50 ML IV SCH (06:00)
[2019-08-25 06:24] LABS: ALT/SGPT 11 U/l (0-40); AST/SGOT 16 U/l (0-37); Albumin 2.4 gm/dL (3.2-5.2); Albumin/Globulin Ratio 0.8 (1.0-2.3); Alkaline Phosphatase 52 U/L (39-117); Bilirubin,Direct < 0.2 mg/dL (0.0-0.3); Bilirubin,Total 0.3 mg/dL (0.0-1.0); Blood Urea Nitrogen 29 mg/dl (8-23); Calcium 7.7 mg/dl (8.6-10.4); Carbon Dioxide 19 mmol/L (22-30); Chloride 105 mmol/L (96-108); Globulin 3.2 gm/dL (2.2-3.7); Glomerular Filtration Rate 34; Glucose 145 mg/dL (70-105); Lactate Dehydrogenase 161 U/L (94-250); Phosphorous 2.1 mg/dL (2.7-4.5); Triglycerides 88 mg/dl (<150); Uric Acid 7.1 mg/dL (2.5-8.0)
[2019-08-25] MEDS: HYDROcodone/APAP 10/325MG TABLET PO PRN (07:28)
[2019-08-25] MEDS: PANTOPRAZOLE 40 MG TABLET PO SCH (07:28)
--- NOTE | 2019-08-25 07:33 | Internal Med Progress Note ---
Medical - PN: Subj Patient information: Note initiated : 08/25/19 at 7:27 am Service Date, if different from initiated Date: [] Patient: Mainor Moran a 74 y/o M admitted on 08/24/19 for Possible Sepsis. Chief Complaint: [] Interval history: Mr. Moran is a 74 year old M Presents to the ED for weakness and altered mental state. He arrives via the EMS. I am been having a difficult time getting history from him. I asked if he brought himself and or if he had some nails bring him and he said he had some Librium and but could not remember who. But per notes he was brought in by EMS. Not sure who called them. And try to obtain history from him he admits not feeling well and weakness when I guide him with questioning. But otherwise I cannot get much of a history from him. He says his scrotum is swollen off and on frequently but perhaps it is little more swollen and more red as well today. Little bit tender to the touch. He also reports fevers. Denies any chest pain or shortness of breath any bowel changes. No stomach pain. Has a history of scrotal cellulitis. has also had a history of pubic symphysis osteomyelitis. CT abdomen pelvis showed no acute source of sepsis did show a large 5 x 1.6 cm large cutaneous ulcer associated fibrosis in the perineal soft tissues appear to be stable from previous imaging. Ultrasound of scrotum showed cellulitis no abscess or deeper structures noted per discussion with ER provider. 08/25 Patient feeling better this morning but quite tired and exhausted. Vasopressors started last night. Titrated down and then up a little bit this morning. Mentation much improved. Scrotum tender but improving. No new complaints. Review of Systems: denies headache/fever/chills/nausea/vomiting/chest or abdominal pain/cough/dyspnea/diarrhea. Otherwise see above. - Constitutional Vitals: Vital Signs Temp Pulse Resp BP Pulse Ox 99.7 F H 76 19 117/47 98 08/25/19 04:01 08/25/19 07:13 08/25/19 07:13 08/25/19 07:06 08/25/19 07:13 Period Temp Pulse Resp BP Sys/Healy Pulse Ox Last 24 Hr 99.6 F-101.7 F 61-119 16-31 71-207/38-188 91-100 Intake and Output 08/24/19 08/25/19 08/25/19 21:59 05:59 13:59 Intake Total 1949 2634 19 Output Total 690 427 Balance 1260 2207 19 Weight 119.833 kg Intake & Output: Intake & Output 08/24/19 08/25/19 08/25/19 21:59 05:59 13:59 Intake Total 1949 2634 19 Output Total 690 427 Balance 1260 2207 19 Weight 119.833 kg Intake: IV 1650 1614 19 Sodium Chloride 0.9% 1,000 ml @ 1000 100 mls/hr IV .Q10H QUENTIN Rx#: [id number] Lactated Ringers 250 ml @ Wide 1000 500 Open IV PRN PRN Rx#:[id number] Levophed 16 mg In Sodium 14 19 Chloride 0.9% 234 ml @ 10 MCG/ MIN 9.375 mls/hr IV PRN PRN Rx# :[id number] Zosyn 3.375 gm In Dextrose 5% 50 100 in Water 50 ml @ 100 mls/hr IV Q6H [facility] Rx#:[id number] Vancomycin 500 mg In Sodium 100 Chloride 0.9% 100 ml @ 100 mls/ hr IV ONCE@2100 ONE Rx#: [id number] Vancomycin 1,500 mg In Sodium 500 Chloride 0.9% 500 ml @ 333.3 mls/hr IV ONCE ONE Rx#: [id number] Oral 300 1020 Output: Urine Catheter Amount 690 352 Stool 75 Other: Meal Dinner PB&J sandwich Percent of Meal Consumed 50% Feeding Ability Independent Independent Urine Appearance Clear Uretheral ([place]) Clear Clear Urine Color Dark Melinda Uretheral ([place]) Dark Yellow Dark Yellow Stool Size Small Stool Consistency Formed Exam: General: Alert and awake, No acute Distress Eyes/N/T: EOMI, Head/Neck: neck supple, CV: RRR, No murmurs, Pulm: Clear b/l, no wheezing/rhonchi/rales Abd: soft, nontender, +BS x4, 2 burnt Ext: no clubbing/cyanosis, trace-1+ b/l LE edema : Scrotum edematous erythematous indurated and mildly tender to touch Neuro: Alert and awakementation much improved today. No focal deficits, follows commands moves all extremities skin: warm/dry Medical - PN: Obj Da - Labs CBC & Chem 7: 08/25/19 04:02 08/25/19 04:02 Labs: Abnormal Lab Results 08/25/19 08/25/19 08/24/19 04:02 04:02 17:23 WBC 11.7 H RBC 3.52 L Hgb 9.5 L Hct 28.2 L POC Hct RDW 16.7 H Gran % Lymph % (Auto) Gran # Lymph # (Auto) Seg Neutrophils % Lymphocytes % VBG Lactic Acid 2.5 H Carbon Dioxide 19 L POC BUN BUN 29 H Creatinine 1.9 H POC Creatinine Glucose 145 H POC Glucose Calcium 7.7 L POC WB Ioniz Calcium Phosphorus 2.1 L Total Protein 5.6 L Albumin 2.4 L Globulin Albumin/Globulin Ratio 0.8 L Urine Occult Blood 08/24/19 08/24/19 08/24/19 15:30 13:39 11:08 WBC RBC Hgb Hct POC Hct 36.0 L RDW Gran % Lymph % (Auto) Gran # Lymph # (Auto) Seg Neutrophils % Lymphocytes % VBG Lactic Acid 2.7 H Carbon Dioxide POC BUN 37 H BUN Creatinine POC Creatinine 1.9 H Glucose POC Glucose 121 H Calcium POC WB Ioniz Calcium 1.14 L Phosphorus Total Protein Albumin Globulin Albumin/Globulin Ratio Urine Occult Blood 0.03 A 08/24/19 08/24/19 08/24/19 11:08 11:08 11:08 WBC RBC Hgb 12.1 L Hct 36.5 L POC Hct RDW 17.1 H Gran % 94.4 H Lymph % (Auto) 1.3 L Gran # 9.3 H Lymph # (Auto) 0.1 L Seg Neutrophils % Lymphocytes % VBG Lactic Acid 2.4 H Carbon Dioxide POC BUN BUN 32 H Creatinine 1.8 H POC Creatinine Glucose 119 H POC Glucose Calcium POC WB Ioniz Calcium Phosphorus Total Protein Albumin Globulin 3.9 H Albumin/Globulin Ratio 0.9 L Urine Occult Blood 08/24/19 10:41 WBC RBC Hgb Hct POC Hct RDW Gran % Lymph % (Auto) Gran # Lymph # (Auto) Seg Neutrophils % 88 H Lymphocytes % 2 L VBG Lactic Acid Carbon Dioxide POC BUN BUN Creatinine POC Creatinine Glucose POC Glucose Calcium POC WB Ioniz Calcium Phosphorus Total Protein Albumin Globulin Albumin/Globulin Ratio Urine Occult Blood Meds: Medications Acetaminophen (Tylenol) 650 mg PO Q4-6HP PRN; Protocol PRN Reason: PAIN/FEVER > 101 Last Admin: 08/24/19 18:37 Dose: 650 mg Documented by: Hydrocodone Bitart/Acetaminophen ([place] 10/325mg) 1 tab PO Q6HP PRN; Protocol PRN Reason: PAIN LEVEL 3-6 Last Admin: 08/24/19 21:46 Dose: 1 tab Documented by: Albuterol/Ipratropium (Duoneb) 3 ml NEB Q4HRT PRN PRN Reason: Bronchospasm Docusate Sodium (Colace) 100 mg PO BID [facility] Last Admin: 08/24/19 20:37 Dose: 100 mg Documented by: Enoxaparin Sodium (Lovenox) 40 mg SQ DAILY [facility] Sodium Chloride (Sodium Chloride 0.9%) 1,000 mls @ 100 mls/hr IV .Q10H [facility] Stop: 08/25/19 13:12 Last Admin: 08/25/19 05:26 Dose: 100 mls/hr Documented by: Piperacillin Sod/Tazobactam (Sod 3.375 gm/ Dextrose) 50 mls @ 100 mls/hr IV Q6H [facility]; Protocol Last Infusion: 08/25/19 05:56 Dose: Infused Documented by: Vancomycin HCl 1,500 mg/ (Sodium Chloride) 500 mls @ 333.3 mls/hr IV Q12H [facility] Clindamycin Phosphate 900 mg/ (Dextrose) 56 mls @ 100 mls/hr IV Q8H [facility]; Protocol Last Admin: 08/25/19 06:00 Dose: Not Given Documented by: Norepinephrine Bitartrate 16 (mg/ Sodium Chloride) 250 mls @ 9.375 mls/hr IV PRN PRN; Protocol PRN Reason: Hypotension Last Titration: 08/25/19 06:30 Dose: 6 mcg/min, 5.625 mls/hr Documented by: Sodium Chloride (Sodium Chloride 0.9%) 250 mls @ 20 mls/hr IV .[id number] [facility] Last Admin: 08/25/19 01:29 Dose: 20 mls/hr Documented by: Melatonin (Melatonin 3mg Tablet) 3 mg PO HSP PRN PRN Reason: Insomnia Mupirocin (Bactroban Oint 2%) 1 dose NARES BID [facility] Ondansetron HCl (Zofran) 4 mg IV Q4-6HP PRN; Protocol PRN Reason: Nausea And Vomiting Pantoprazole Sodium (Protonix) [facility] Promethazine HCl (Phenergan) 12.5 mg IV Q4-6HP PRN; Protocol PRN Reason: Nausea And Vomiting Senna (Senokot) 1 tab PO HSP PRN PRN Reason: Constipation Sodium Chloride (Saline Flush) 10 ml IV Q8 [facility] Last Admin: 08/25/19 05:43 Dose: Not Given Documented by: Vancomycin HCl (Vancomycin Per Pharmacy) 1 order IV [facility]; Protocol Zolpidem Tartrate (Ambien) 10 mg PO HSP PRN PRN Reason: Insomnia Last Admin: 08/24/19 21:47 Dose: 10 mg Documented by: Medical - PN: A/P - Time Spent With Patient Total time spent is greater than 50% in coordination of care (as documented) at patient's floor/unit and/or counseling patient: - Narrative A/P Narrative: A: *Cellulitis of the scrotum: -u/s scrotum and CT a/p without contrast but no evidence of gas or perineal cellulitis *Bacteremia (GPC in chains/pairs, suspect strep group A): *Septic Shock: 2/2 above -lactic acidosis resolved -vasopressors *Encephalopathy (lethargy): 2/2 above, resolved *CKD IIIb (base Cr~1.7-1.8): 2/2 above *BPH: *Chronic LBP: *Depression/anxiety: *Obesity: * P: -vanc/zosyn/clinda; deescalate per final BC and Infectious dz -ID following -f/u BC's in AM -trend PCT -wean vasopressors -wound care consult -hold home lasix for now -pt/ot -ppx: lovenox full code Medical - PN: Qual - VTE Deep Vein Thrombosis/Pulmonary Embolism Present on Admission: No
[2019-08-25 07:52] LABS: Anisocytosis 1+ (NONE SEEN); Band Neutrophils % 11 % (0-10); Lymphocytes % 1 % (15-49); Monocytes % (Manual) 3 % (1-12); Platelet Estimate NORMAL (NORMAL); RBC Morphology ABNORM (NORMAL); Segmented Neutrophils % 85 % (38-78)
[2019-08-25] MEDS: DOCUSATE SODIUM 100 MG CAPSULE PO SCH ×2 (08:31→22:37)
[2019-08-25] MEDS: ENOXAPARIN 40 MG/0.4 ML SYRINGE SQ SCH (08:31)
[2019-08-25] MEDS ORDERED: MUPIROCIN OINT 2% 22GM NARES SCH (09:00)
[2019-08-25] MEDS ORDERED: VANCOMYCIN 1,500 MG in 0.9 % SODIUM CHLORIDE 500 ML IV SCH (09:00)
[2019-08-25] MEDS ORDERED: ALBUMIN HUMAN 12.5 GM/50 ML BAG IV ONE (09:42)
[2019-08-25] MEDS ORDERED: BENZOCAINE/MENTHOL 1 LOZENGE PO PRN (09:43)
[2019-08-25] MEDS: cefTRIAXone 2 GM in DEXTROSE 5% IN WATER 50 ML IV SCH (11:00)
[2019-08-25] MEDS ORDERED: MAGNESIUM SULFATE 8.12 MEQ in DEXTROSE 5% IN WATER 50 ML IV ONE (13:06)
--- NOTE | 2019-08-25 18:42 | Infectious Disease Consult ---
History of Present Illness Patient information: Note initiated : 08/25/19 at 6:21 pm Service Date, if different from initiated Date: [] Patient: Mainor Moran 74 y/o M admitted on 08/24/19 for Possible Sepsis. Chief Complaint: [] Consult date: 08/25/19 Requesting Physician: Maicol Segal Reason for Consult: Scrotal cellulitis and sepsis Chief complaint: my scrotum hurts History of present illness: 74 year old man well known to me from past hospitalization and clinic f/u for pelvic osteomyelitis. Pt has hx of DM2, and chronic scrotal swelling (possibly due to low ejection fraction). About 4-5 days ago, he started noticing his scrotum becoming bigger, red and painful. He endorsed some chills, but denied any fevers, recent scrotal trauma, sick contacts. He was brought to ED on 08/24 by ambulance after her sister called due to pt getting confused. In ED, his VS were: 99.7F, 118/min, BP 123/59, RR 20, satting well on RA. WBC was 9.9, Cr 1.8, Procalcitonin 19.6, Lactic acid 2.4. Pt was admitted to ICU given concerns for sepsis, and given IVF. CT abd/pelvis showed a large 5 x 1.6 cm ulcer in the perianal area (similar to past studies). He did require IV Norepi later at night given drop in BP to MAP <65. Ultrasound of scrotum showed cellulitis with no abscess or deeper structures. Initially he was on IV Vanc and IV Zosyn. IV Clindamycin added by primary team later. This am he had better mentation, vasopressor req coming down. His blood Cx sent at adm came back +ve for GPC in chains, clusters, with Verigene showing Gp B Strept. Review of Systems All systems PM: reviewed and no additional remarkable complaints except as stated Constitutional: as per HPI Past History Past family history: no sick contacts Past social history: lives alone in [place]. Has a caregiver. His sister also staying with him these days Medications and Allergies Home Medications Medication Instructions Recorded Confirmed Type Finasteride [Proscar] 5 mg PO DAILY 08/24/19 08/24/19 History Furosemide [Lasix] 40 mg PO QAM 08/24/19 08/25/19 History Gabapentin [Neurontin] 300 mg PO TID 08/24/19 08/25/19 History HYDROcodone/APAP 10/325MG [[place] 1 tab PO QID 08/24/19 08/25/19 History 10-325Mg] Oxybutynin Chloride [Ditropan] 10 mg PO HS 08/24/19 08/24/19 History Tamsulosin [Flomax] 0.8 mg PO HS 08/24/19 08/24/19 History Zolpidem [Ambien] 10 mg PO HSP PRN 08/24/19 08/24/19 History buPROPion HCL [Bupropion Xl] 150 mg PO QAM 08/24/19 08/24/19 History Allergies Allergy/AdvReac Type Severity Reaction Status Date / Time No Known Drug Allergies Allergy Verified 08/24/19 10:32 Physical Examination Vital signs: Temp Pulse Resp BP Pulse Ox 37.8 C H 74 14 118/38 97 08/25/19 08:01 08/25/19 07:31 08/25/19 18:03 08/25/19 18:02 08/25/19 18:03 General appearance: no acute distress Eyes pulmonary: nonicteric Effort: normal Auscultation: bilateral: rales (bibasilar) Cardiovascular: other (s1 s2 normal, has faint murmur over rt 2nd ICS) Gastrointestinal: normoactive bowel sounds, soft, non-tender Integumentary: other (has a superficial ulcer in the distal aspect of intergluteal cleft, mild amount of yellow exudate) Groin and scrotum: pt has redness, subcutaneous swelling in groin, lateral and medial aspects of upper thighs. The scrotum is swollen, red, tender. No open wounds seen. Results - Laboratory Findings CBC and BMP: 08/25/19 04:02 08/25/19 04:02 Abnormal lab findings: Abnormal Labs 08/24/19 08/24/19 08/24/19 10:41 11:08 11:08 WBC RBC Hgb 12.1 L Hct 36.5 L POC Hct RDW 17.1 H Gran % 94.4 H Lymph % (Auto) 1.3 L Gran # 9.3 H Lymph # (Auto) 0.1 L Seg Neutrophils % 88 H Band Neutrophils % Lymphocytes % 2 L RBC Morphology Anisocytosis VBG Lactic Acid Carbon Dioxide POC BUN BUN 32 H Creatinine 1.8 H POC Creatinine Glucose 119 H POC Glucose Calcium POC WB Ioniz Calcium Phosphorus Total Protein Albumin Globulin 3.9 H Albumin/Globulin Ratio 0.9 L Urine Occult Blood 08/24/19 08/24/19 08/24/19 11:08 11:08 13:39 WBC RBC Hgb Hct POC Hct 36.0 L RDW Gran % Lymph % (Auto) Gran # Lymph # (Auto) Seg Neutrophils % Band Neutrophils % Lymphocytes % RBC Morphology Anisocytosis VBG Lactic Acid 2.4 H Carbon Dioxide POC BUN 37 H BUN Creatinine POC Creatinine 1.9 H Glucose POC Glucose 121 H Calcium POC WB Ioniz Calcium 1.14 L Phosphorus Total Protein Albumin Globulin Albumin/Globulin Ratio Urine Occult Blood 0.03 A 08/24/19 08/24/19 08/25/19 15:30 17:23 04:02 WBC RBC Hgb Hct POC Hct RDW Gran % Lymph % (Auto) Gran # Lymph # (Auto) Seg Neutrophils % Band Neutrophils % Lymphocytes % RBC Morphology Anisocytosis VBG Lactic Acid 2.7 H 2.5 H Carbon Dioxide 19 L POC BUN BUN 29 H Creatinine 1.9 H POC Creatinine Glucose 145 H POC Glucose Calcium 7.7 L POC WB Ioniz Calcium Phosphorus 2.1 L Total Protein 5.6 L Albumin 2.4 L Globulin Albumin/Globulin Ratio 0.8 L Urine Occult Blood 08/25/19 04:02 WBC 11.7 H RBC 3.52 L Hgb 9.5 L Hct 28.2 L POC Hct RDW 16.7 H Gran % Lymph % (Auto) Gran # Lymph # (Auto) Seg Neutrophils % 85 H Band Neutrophils % 11 H Lymphocytes % 1 L RBC Morphology Abnorm A Anisocytosis 1+ A VBG Lactic Acid Carbon Dioxide POC BUN BUN Creatinine POC Creatinine Glucose POC Glucose Calcium POC WB Ioniz Calcium Phosphorus Total Protein Albumin Globulin Albumin/Globulin Ratio Urine Occult Blood Microbiology: Microbiology 08/24/19 13:39 Urine - [place] Urine Culture - Preliminary 08/24/19 11:13 Blood Blood Culture - Preliminary Strep agalactiae - (group b) 08/24/19 11:08 Blood Blood Culture - Preliminary Gram positive cocci 08/24/19 19:05 Skin - Buttocks MRSA (PCR) - Final 08/24/19 17:34 Nose MRSA (PCR) - Final Assessment and Plan - Narrative A/P Narrative: A: 1. Group B Streptococcal bacteremia: - likely source is scrotal cellulitis and/or sacral area ulcer 2. Diffuse scrotal cellulitis: on clinical exam and US. No testicular inv - risk factors of chronic scrotal swellling, sacral area ulcer - no concerns for Gricelda's gangrene - MRSA nasal PCR neg 3. Septic shock: sec to (1) - resolving Recommendations: - Stop Vanc, Clinda, Zosyn - Start IV Ceftriaxone 2 gm q24 hrs - scrotal elevation - superficial wound care for the sacral area wound - repeat blood Cx tomorrow am - Once blood Cx neg for 48 hrs, consider midline placement for IV Ceftriaxone as OP - will comment on duration and f/u in next few days Rojas Buitrago MD Infectious diseases
[2019-08-25] MEDS: ACETAMINOPHEN 325 MG TABLET PO PRN (19:30)
--- NOTE | 2019-08-25 20:08 | General Surgery Consult Note ---
History of Present Illness Patient information: Note initiated : 08/25/19 at 8:02 pm Service Date, if different from initiated Date: [] Patient: Mainor Moran 74 y/o M admitted on 08/24/19 for Possible Sepsis. Chief Complaint: [] Consult date: 08/25/19 Requesting physician: Maicol Segal (Wound Care / Sacral PU) History of present illness: I saw this patient in ICU 120 / C along with OLMAN Pollard. He is a poor historian. Being treated at [facility] by Dr. Barrett. CC: Epidermal ulceration along midline scar over sacral bone. There is surrounding erythema, mild edema without crepitation over the wound. He has history of Rectal Cancer treated with APR ( Abdominal / Perineal Reaction and an END LLQ everting colostomy. He has NT seen his doctors in a long time. He denies any acute systemic or constitutional symptoms. Medications and Allergies Home Medications Medication Instructions Recorded Confirmed Type Finasteride [Proscar] 5 mg PO DAILY 08/24/19 08/24/19 History Furosemide [Lasix] 40 mg PO QAM 08/24/19 08/25/19 History Gabapentin [Neurontin] 300 mg PO TID 08/24/19 08/25/19 History HYDROcodone/APAP 10/325MG [[place] 1 tab PO QID 08/24/19 08/25/19 History 10-325Mg] Oxybutynin Chloride [Ditropan] 10 mg PO HS 08/24/19 08/24/19 History Tamsulosin [Flomax] 0.8 mg PO HS 08/24/19 08/24/19 History Zolpidem [Ambien] 10 mg PO HSP PRN 08/24/19 08/24/19 History buPROPion HCL [Bupropion Xl] 150 mg PO QAM 08/24/19 08/24/19 History Allergies Allergy/AdvReac Type Severity Reaction Status Date / Time No Known Drug Allergies Allergy Verified 08/24/19 10:32 Exam Temp Pulse Resp BP Pulse Ox 102 F H 74 14 118/38 97 08/25/19 19:30 08/25/19 07:31 08/25/19 18:03 08/25/19 18:02 08/25/19 18:03 - General physical appearance well developed (Morbid Obesity. ), well nourished, no distress, moderate pain, other (Patient is unable to take care of himself. ) - Eyes PERRL, normal ocular movement, pale, icteric - ENT normal pinna, normal nares, normal mucosa, no congestion, decreased hearing - Head Head exam IM: Present: atraumatic, normal inspection, normocephalic - Neck no masses, no bruits, trachea midline, no venous distension - Cardiovascular Cardiovascular exam IM: Present: normal rate and rhythm - Respiratory normal expansion, normal respiratory effort, clear to auscultation - Abdomen Abdomen: Present: soft, non tender, bowel sounds, surgical scars, wound - Genitourinary Present: testicles non-tender scrotal mass/hydrocele: bilateral (Scrotal dermal, subdermal edema / Hydrocele. ) - Rectum Rectum: Present: other (RECTUM absent. HE does NOT want to be stuck with the patint..) - Integumentary Present: other (Loss of FUll thickness skin with other deep dermal wren involving atleast anterior part of chest. ) - Neurologic Present: normal coordination, normal sensation, deep tendon reflexes - Psychiatric Present: oriented to time, oriented to person, oriented to place, speech is normal, memory intact, other Results - Labs 08/26/19 04:12 08/26/19 04:13 Abnormal lab results 08/25/19 08/25/19 Range/Units 04:02 04:02 WBC 11.7 H (4.5-11.0) K/mcL RBC 3.52 L (4.50-5.90) M/mcL Hgb 9.5 L (13.5-16.5) g/dL Hct 28.2 L (41.0-55.0) % RDW 16.7 H (11.5-14.5) % Seg Neutrophils % 85 H (38-78) % Band Neutrophils % 11 H (0-10) % Lymphocytes % 1 L (15-49) % RBC Morphology Abnorm A (NORMAL) Anisocytosis 1+ A (NONE SEEN) Carbon Dioxide 19 L (22-30) mmol/L BUN 29 H (8-23) mg/dl Creatinine 1.9 H (0.7-1.2) mg/dl Glucose 145 H (70-105) mg/dL Calcium 7.7 L (8.6-10.4) mg/dl Phosphorus 2.1 L (2.7-4.5) mg/dL Total Protein 5.6 L (5.9-8.4) gm/dL Albumin 2.4 L (3.2-5.2) gm/dL Albumin/Globulin Ratio 0.8 L (1.0-2.3) Diabetes panel 08/25/19 Range/Units 04:02 Sodium 138 (133-145) mmol/L Potassium 3.6 (3.3-5.1) mmol/L Chloride 105 (96-108) mmol/L Carbon Dioxide 19 L (22-30) mmol/L BUN 29 H (8-23) mg/dl Creatinine 1.9 H (0.7-1.2) mg/dl Glucose 145 H (70-105) mg/dL Calcium 7.7 L (8.6-10.4) mg/dl AST 16 (0-37) U/l ALT 11 (0-40) U/l Alkaline Phosphatase 52 (39-117) U/L Total Protein 5.6 L (5.9-8.4) gm/dL Albumin 2.4 L (3.2-5.2) gm/dL Triglycerides 88 (<150) mg/dl Calcium panel 08/25/19 Range/Units 04:02 Calcium 7.7 L (8.6-10.4) mg/dl Phosphorus 2.1 L (2.7-4.5) mg/dL Albumin 2.4 L (3.2-5.2) gm/dL Pituitary panel 08/25/19 Range/Units 04:02 Sodium 138 (133-145) mmol/L Potassium 3.6 (3.3-5.1) mmol/L Chloride 105 (96-108) mmol/L Carbon Dioxide 19 L (22-30) mmol/L BUN 29 H (8-23) mg/dl Creatinine 1.9 H (0.7-1.2) mg/dl Glucose 145 H (70-105) mg/dL Calcium 7.7 L (8.6-10.4) mg/dl Adrenal panel 08/25/19 Range/Units 04:02 Sodium 138 (133-145) mmol/L Potassium 3.6 (3.3-5.1) mmol/L Chloride 105 (96-108) mmol/L Carbon Dioxide 19 L (22-30) mmol/L BUN 29 H (8-23) mg/dl Creatinine 1.9 H (0.7-1.2) mg/dl Glucose 145 H (70-105) mg/dL Calcium 7.7 L (8.6-10.4) mg/dl Total Bilirubin 0.3 (0.0-1.0) mg/dL AST 16 (0-37) U/l ALT 11 (0-40) U/l Alkaline Phosphatase 52 (39-117) U/L Total Protein 5.6 L (5.9-8.4) gm/dL Albumin 2.4 L (3.2-5.2) gm/dL All other labs normal. Assessment and Plan (1) Altered mental status Status: Acute Priority: High (2) Sepsis Status: Acute Priority: High (3) Decubital ulcer Assessment: I evaluated this patient along with OLMAN Pollard ( Wound Care ) and [facility] ICU. Recommend conservative management. Continue to see patient as his condition evolves. This wound is a Radiation Related soft tissue necrosis and pressure related ulceration. Plan: See detailed wound care orders. Status: Acute Qualifiers: Pressure injury location: sacral region Pressure injury stage: stage 2 Qualified Code(s): L89.152 - Pressure ulcer of sacral region, stage 2 (4) CHF (congestive heart failure) Status: Acute Qualifiers: Heart failure type: unspecified Heart failure chronicity: acute on chronic Qualified Code(s): I50.9 - Heart failure, unspecified
[2019-08-25] MEDS: ZOLPIDEM 5 MG TABLET PO PRN (22:38)
[2019-08-26] MEDS: 0.9 % SODIUM CHLORIDE 250 ML IV SCH ×3 (02:49→21:47)
[2019-08-26] MEDS: 0.9 % SODIUM CHLORIDE 10 ML SYRINGE IV SCH ×3 (05:50→21:47)
[2019-08-26] MEDS: HYDROcodone/APAP 10/325MG TABLET PO PRN ×2 (06:04→19:54)
[2019-08-26 06:46] LABS: Hematocrit 28.3 % (41.0-55.0); Hemoglobin 9.5 g/dL (13.5-16.5); Mean Cell Volume 79.9 fL (80.0-100.0); Mean Corpuscular HGB Conc 33.5 g/dL (31.0-36.0); Mean Platelet Volume 7.8 fL (7.4-10.4); Platelet Count 254 K/mcL (140-440); RBC 3.55 M/mcL (4.50-5.90); Red Cell Distribution Width 17.1 % (11.5-14.5); WBC 8.3 K/mcL (4.5-11.0)
[2019-08-26 07:11] LABS: ALT/SGPT 11 U/l (0-40); AST/SGOT 15 U/l (0-37); Albumin 2.6 gm/dL (3.2-5.2); Albumin/Globulin Ratio 0.7 (1.0-2.3); Alkaline Phosphatase 56 U/L (39-117); Bilirubin,Direct < 0.2 mg/dL (0.0-0.3); Bilirubin,Total 0.2 mg/dL (0.0-1.0); Blood Urea Nitrogen 24 mg/dl (8-23); Calcium 8.1 mg/dl (8.6-10.4); Carbon Dioxide 20 mmol/L (22-30); Chloride 108 mmol/L (96-108); Globulin 3.5 gm/dL (2.2-3.7); Glomerular Filtration Rate 39; Glucose 82 mg/dL (70-105); Lactate Dehydrogenase 166 U/L (94-250); Phosphorous 2.3 mg/dL (2.7-4.5); Triglycerides 151 mg/dl (<150); Uric Acid 6.4 mg/dL (2.5-8.0)
[2019-08-26] MEDS: PANTOPRAZOLE 40 MG TABLET PO SCH (07:43)
[2019-08-26 08:13] LABS: Anisocytosis 1+ (NONE SEEN); Band Neutrophils % 17 % (0-10); Eosinophils % (Manual) 1 % (0-7); Hypochromasia 1+ (NONE SEEN); Lymphocytes % 5 % (15-49); Microcytosis 1+ (NONE SEEN); Monocytes % (Manual) 4 % (1-12); Platelet Estimate NORMAL (NORMAL); Polychromasia 1+ (NONE SEEN); RBC Morphology ABNORM (NORMAL); Segmented Neutrophils % 73 % (38-78)
[2019-08-26] MEDS: cefTRIAXone 2 GM in DEXTROSE 5% IN WATER 50 ML IV SCH ×2 (08:16→10:17)
[2019-08-26] MEDS: ENOXAPARIN 40 MG/0.4 ML SYRINGE SQ SCH (09:52)
[2019-08-26] MEDS: DOCUSATE SODIUM 100 MG CAPSULE PO SCH ×2 (09:52→19:54)
[2019-08-26] MEDS ORDERED: PROMETHAZINE 25 MG/ML VIAL IV PRN (10:15)
[2019-08-26] MEDS ORDERED: ACETAMINOPHEN 325 MG TABLET PO PRN (10:15)
[2019-08-26] MEDS ORDERED: ONDANSETRON 4 MG/2 ML VIAL IV PRN (10:15)
[2019-08-26] MEDS ORDERED: ZOLPIDEM 5 MG TABLET PO PRN (10:15)
[2019-08-26] MEDS ORDERED: IPRATROPIUM/ALBUTEROL 3 ML AMPUL.NEB NEB PRN (10:15)
[2019-08-26] MEDS ORDERED: NOREPINEPHRINE BITARTRATE 16 MG in 0.9 % SODIUM CHLORIDE 234 ML IV PRN (10:15)
[2019-08-26] MEDS ORDERED: BENZOCAINE/MENTHOL 1 LOZENGE PO PRN (10:15)
[2019-08-26] MEDS ORDERED: SENNOSIDES 1 TABLET PO PRN (10:15)
[2019-08-26] MEDS ORDERED: MELATONIN 3 MG TABLET PO PRN (10:15)
--- NOTE | 2019-08-26 10:41 | Internal Med Progress Note ---
Medical - PN: Subj Patient information: Note initiated : 08/26/19 at 10:35 am Service Date, if different from initiated Date: [] Patient: Mainor Moran a 74 y/o M admitted on 08/24/19 for Possible Sepsis. Chief Complaint: [] Interval history: Mr. Moran is a 74 year old M Presents to the ED for weakness and altered mental state. He arrives via the EMS. I am been having a difficult time getting history from him. I asked if he brought himself and or if he had some nails bring him and he said he had some Librium and but could not remember who. But per notes he was brought in by EMS. Not sure who called them. And try to obtain history from him he admits not feeling well and weakness when I guide him with questioning. But otherwise I cannot get much of a history from him. He says his scrotum is swollen off and on frequently but perhaps it is little more swollen and more red as well today. Little bit tender to the touch. He also reports fevers. Denies any chest pain or shortness of breath any bowel changes. No stomach pain. Has a history of scrotal cellulitis. has also had a history of pubic symphysis osteomyelitis. CT abdomen pelvis showed no acute source of sepsis did show a large 5 x 1.6 cm large cutaneous ulcer associated fibrosis in the perineal soft tissues appear to be stable from previous imaging. Ultrasound of scrotum showed cellulitis no abscess or deeper structures noted per discussion with ER provider. 08/25 Patient feeling better this morning but quite tired and exhausted. Vasopressors started last night. Titrated down and then up a little bit this morning. Mentation much improved. Scrotum tender but improving. No new complaints. 08/26-patient doing better. Started on diuretics in light of significant scleral lymphedema. White count downtrending. T-max 102. Off pressors. Mild MELISSA clinically improving. GPC bacteremia growing alpha strep. On Rocephin per ID. Start diuresis. DC IV fluids. - Constitutional Vitals: Vital Signs Temp Pulse Resp BP Pulse Ox 98.0 F 66 14 119/53 98 08/26/19 08:01 08/26/19 08:00 08/26/19 09:25 08/26/19 08:01 08/26/19 08:01 Period Temp Pulse Resp BP Sys/Healy Pulse Ox Last 24 Hr 97.7 F-102 F 66 11-33 94-151/38-112 93-100 Intake and Output 08/25/19 08/26/19 08/26/19 21:59 05:59 13:59 Intake Total 1293 100 770 Output Total 360 569 275 Balance 933 -469 495 Weight 271 lb 12.8 oz Intake & Output: Intake & Output 08/25/19 08/26/19 08/26/19 21:59 05:59 13:59 Intake Total 1293 100 770 Output Total 360 569 275 Balance 933 -469 495 Weight 271 lb 12.8 oz Intake: IV 303 50 Sodium Chloride 0.9% 250 ml @ 250 20 mls/hr IV .[id number] [facility] Rx#: [id number] Magnesium Sulfate 8.12 Meq In 52 Dextrose 5% in Water 50 ml @ 52 mls/hr IV ONCE ONE Rx#: [id number] Levophed 16 mg In Sodium 1 Chloride 0.9% 234 ml @ 10 MCG/ MIN 9.375 mls/hr IV PRN PRN Rx# :[id number] Rocephin 2 gm In Dextrose 5% in 50 Water 50 ml @ 100 mls/hr IV Q24H [facility] Rx#:[id number] Oral 990 100 720 Output: Urine Catheter Amount 310 419 275 Void Amount 50 Stool 150 Other: Meal Dinner Percent of Meal Consumed 75% Feeding Ability Independent Urine Appearance Clear Clear Clear Uretheral (Lanier) Clear Clear Clear Urine Color Dark Yellow Dark Melinda Light Melinda Uretheral ([place]) Dark Yellow Dark Yellow Light Melinda Urine Odor Normal Normal Stool Size Moderate Moderate Moderate Stool Color Brown Brown Stool Consistency Soft Soft Soft Formed General appearance: no acute distress Exam: Alert oriented Nonlabored breathing Nondistended abdomen Lanier is draining clear urine, periurethral pus noted Significant scrotal lymphedema/erythema Medical - PN: Obj Da - Labs CBC & Chem 7: 08/26/19 04:12 08/26/19 04:13 Labs: Abnormal Lab Results 08/26/19 08/26/19 08/25/19 04:13 04:12 04:02 WBC 11.7 H RBC 3.55 L 3.52 L Hgb 9.5 L 9.5 L Hct 28.3 L 28.2 L POC Hct MCV 79.9 L RDW 17.1 H 16.7 H Gran % Lymph % (Auto) Gran # Lymph # (Auto) Seg Neutrophils % 85 H Band Neutrophils % 17 H 11 H Lymphocytes % 5 L 1 L RBC Morphology Abnorm A Abnorm A Polychromasia 1+ A Hypochromasia 1+ A Anisocytosis 1+ A 1+ A Microcytosis 1+ A VBG Lactic Acid Carbon Dioxide 20 L POC BUN BUN 24 H Creatinine 1.7 H POC Creatinine Glucose POC Glucose Calcium 8.1 L POC WB Ioniz Calcium Phosphorus 2.3 L Total Protein Albumin 2.6 L Globulin Albumin/Globulin Ratio 0.7 L Triglycerides 151 H Urine Occult Blood 08/25/19 08/24/19 08/24/19 04:02 17:23 15:30 WBC RBC Hgb Hct POC Hct MCV RDW Gran % Lymph % (Auto) Gran # Lymph # (Auto) Seg Neutrophils % Band Neutrophils % Lymphocytes % RBC Morphology Polychromasia Hypochromasia Anisocytosis Microcytosis VBG Lactic Acid 2.5 H 2.7 H Carbon Dioxide 19 L POC BUN BUN 29 H Creatinine 1.9 H POC Creatinine Glucose 145 H POC Glucose Calcium 7.7 L POC WB Ioniz Calcium Phosphorus 2.1 L Total Protein 5.6 L Albumin 2.4 L Globulin Albumin/Globulin Ratio 0.8 L Triglycerides Urine Occult Blood 08/24/19 08/24/19 08/24/19 13:39 11:08 11:08 WBC RBC Hgb Hct POC Hct 36.0 L MCV RDW Gran % Lymph % (Auto) Gran # Lymph # (Auto) Seg Neutrophils % Band Neutrophils % Lymphocytes % RBC Morphology Polychromasia Hypochromasia Anisocytosis Microcytosis VBG Lactic Acid 2.4 H Carbon Dioxide POC BUN 37 H BUN Creatinine POC Creatinine 1.9 H Glucose POC Glucose 121 H Calcium POC WB Ioniz Calcium 1.14 L Phosphorus Total Protein Albumin Globulin Albumin/Globulin Ratio Triglycerides Urine Occult Blood 0.03 A 08/24/19 08/24/19 08/24/19 11:08 11:08 10:41 WBC RBC Hgb 12.1 L Hct 36.5 L POC Hct MCV RDW 17.1 H Gran % 94.4 H Lymph % (Auto) 1.3 L Gran # 9.3 H Lymph # (Auto) 0.1 L Seg Neutrophils % 88 H Band Neutrophils % Lymphocytes % 2 L RBC Morphology Polychromasia Hypochromasia Anisocytosis Microcytosis VBG Lactic Acid Carbon Dioxide POC BUN BUN 32 H Creatinine 1.8 H POC Creatinine Glucose 119 H POC Glucose Calcium POC WB Ioniz Calcium Phosphorus Total Protein Albumin Globulin 3.9 H Albumin/Globulin Ratio 0.9 L Triglycerides Urine Occult Blood Meds: Medications Acetaminophen (Tylenol) 650 mg PO Q4-6HP PRN; Protocol PRN Reason: PAIN/FEVER > 101 Hydrocodone Bitart/Acetaminophen ([place] 10/325mg) 1 tab PO Q6HP PRN; Protocol PRN Reason: PAIN LEVEL 3-6 Albuterol/Ipratropium (Duoneb) 3 ml NEB Q4HRT PRN PRN Reason: Bronchospasm Docusate Sodium (Colace) 100 mg PO BID [facility] Enoxaparin Sodium (Lovenox) 40 mg SQ DAILY [facility] Furosemide (Lasix) 20 mg IV Q8 [facility] Ceftriaxone Sodium 2 gm/ (Dextrose) 50 mls @ 100 mls/hr IV Q24H [facility]; Protocol Last Admin: 08/26/19 10:17 Dose: Not Given Documented by: Norepinephrine Bitartrate 16 (mg/ Sodium Chloride) 250 mls @ 9.375 mls/hr IV Q24HP PRN; Protocol PRN Reason: Hypotension Sodium Chloride (Sodium Chloride 0.9%) 250 mls @ 20 mls/hr IV .[id number] [facility] Last Admin: 08/26/19 10:17 Dose: Not Given Documented by: Melatonin (Melatonin 3mg Tablet) 3 mg PO HSP PRN PRN Reason: Insomnia Ondansetron HCl (Zofran) 4 mg IV Q4-6HP PRN; Protocol PRN Reason: Nausea And Vomiting Pantoprazole Sodium (Protonix) 40 mg PO QAMAC [facility] Promethazine HCl (Phenergan) 12.5 mg IV Q4-6HP PRN; Protocol PRN Reason: Nausea And Vomiting Senna (Senokot) 1 tab PO HSP PRN PRN Reason: Constipation Sodium Chloride (Saline Flush) 10 ml IV Q8 [facility] Throat Lozenges (Cepacol) 1 lozenge PO PRN PRN PRN Reason: Sore Throat Zolpidem Tartrate (Ambien) 10 mg PO HSP PRN PRN Reason: Insomnia Medical - PN: A/P - Time Spent With Patient Total time spent is greater than 50% in coordination of care (as documented) at patient's floor/unit and/or counseling patient: Greater than 35 minutes (1) Septic shock Status: Acute Assessment and plan: * Septic shock secondary to alpha streptococci bacteremia. Likely source scrotal cellulitis. On antibiotic coverage. Off pressors. Clinically improving. Transfer to [facility] * Cellulitis of the scrotum:-u/s scrotum and CT a/p without contrast but no evidence of gas or perineal cellulitis * Streptococcus bacteremia on Rocephin per ID * Encephalopathy (lethargy): 2/2 above, resolved * CKD IIIb (base Cr~1.7-1.8): 2/2 above * BPH: * Chronic LBP: * Depression/anxiety * Obesity * Prophylaxis enoxaparin P: * Continue antibiotic coverage per ID * Limb elevation/diuretics * Transfer to telemetry * Wound care * PT OT/nutrition support * Discharge planning Current Visit: Yes Medical - PN: Qual - VTE Deep Vein Thrombosis/Pulmonary Embolism Present on Admission: No
[2019-08-26] MEDS: FUROSEMIDE 20 MG/2 ML VIAL IV SCH ×3 (10:45→21:47)
[2019-08-26] MEDS ORDERED: FUROSEMIDE 20 MG/2 ML VIAL IV ONE (10:47)
--- NOTE | 2019-08-26 11:20 | Infectious Disease Prog Note ---
Subjective Patient information: Note initiated : 08/26/19 at 11:18 am Service Date, if different from initiated Date: [] Patient: Mainor Moran 74 y/o M admitted on 08/24/19 for Possible Sepsis. Chief Complaint: [] Interval history: Pt is doing better. Denies any fever, chills, n/v, diarrhea. Endorses scrotal pain and swelling. Is able to sit up. Objective Objective Narrative: ao x 3, in nad no thrush chest has decreased BS at bases, VBS b/l s1 s2 normal, has 2/6 ESM at Rt 2nd ICS bs ++, distended, has abd hernia and colostomy (with formed stools) has b/l LE edema - Vital Signs Vital signs: Vital Signs Temp Pulse Resp BP Pulse Ox 08/26/19 09:25 14 08/26/19 08:01 36.7 C 12 119/53 98 08/26/19 08:00 66 16 98 08/26/19 07:02 16 117/54 98 08/26/19 06:01 18 136/59 99 08/26/19 05:01 14 127/56 96 08/26/19 04:01 14 134/112 99 08/26/19 03:50 36.9 C 11 L 99 08/26/19 03:01 21 151/58 99 08/26/19 02:00 16 113/56 94 08/26/19 01:01 16 105/54 94 08/26/19 00:01 36.5 C 17 124/53 94 08/25/19 23:01 20 110/55 94 08/25/19 22:11 17 117/54 95 08/25/19 21:01 22 113/53 93 08/25/19 20:29 37.7 C H 14 97 08/25/19 20:15 37.7 C H 08/25/19 20:06 17 117/52 95 08/25/19 19:30 38.8 C H 08/25/19 19:17 21 128/54 97 08/25/19 19:02 38.8 C H 33 H 93 08/25/19 18:03 14 97 08/25/19 18:02 19 118/38 97 08/25/19 17:03 18 100 08/25/19 17:02 16 114/45 100 08/25/19 16:06 20 118/50 08/25/19 15:02 16 108/49 08/25/19 14:19 12 113/48 08/25/19 13:13 18 100 08/25/19 13:01 19 122/52 100 08/25/19 12:12 18 100 08/25/19 12:10 15 108/81 99 Intake and Output 08/25/19 08/26/19 08/26/19 21:59 05:59 13:59 Intake Total 1293 100 770 Output Total 360 569 275 Balance 933 -469 495 Intake: IV 303 50 Sodium Chloride 0.9% 250 ml @ 250 20 mls/hr IV .[id number] [facility] Rx#: [id number] Magnesium Sulfate 8.12 Meq In 52 Dextrose 5% in Water 50 ml @ 52 mls/hr IV ONCE ONE Rx#: [id number] Levophed 16 mg In Sodium 1 Chloride 0.9% 234 ml @ 10 MCG/ MIN 9.375 mls/hr IV PRN PRN Rx# :[id number] Rocephin 2 gm In Dextrose 5% in 50 Water 50 ml @ 100 mls/hr IV Q24H [facility] Rx#:[id number] Oral 990 100 720 Output: Urine Catheter Amount 310 419 275 Void Amount 50 Stool 150 Other: Meal Dinner Percent of Meal Consumed 75% Feeding Ability Independent Urine Appearance Clear Clear Clear Uretheral ([place]anier) Clear Clear Clear Urine Color Dark Yellow Dark Melinda Light Melinda Uretheral ([place]) Dark Yellow Dark Yellow Light Melinda Urine Odor Normal Normal Stool Size Moderate Moderate Moderate Stool Color Brown Brown Stool Consistency Soft Soft Soft Formed Weight 123.286 kg Intake & Output: Intake & Output 08/25/19 08/26/19 08/26/19 21:59 05:59 13:59 Intake Total 1293 100 770 Output Total 360 569 275 Balance 933 -469 495 Weight 123.286 kg Intake: IV 303 50 Sodium Chloride 0.9% 250 ml @ 250 20 mls/hr IV .[id number] [facility] Rx#: [id number] Magnesium Sulfate 8.12 Meq In 52 Dextrose 5% in Water 50 ml @ 52 mls/hr IV ONCE ONE Rx#: [id number] Levophed 16 mg In Sodium 1 Chloride 0.9% 234 ml @ 10 MCG/ MIN 9.375 mls/hr IV PRN PRN Rx# :[id number] Rocephin 2 gm In Dextrose 5% in 50 Water 50 ml @ 100 mls/hr IV Q24H [facility] Rx#:[id number] Oral 990 100 720 Output: Urine Catheter Amount 310 419 275 Void Amount 50 Stool 150 Other: Meal Dinner Percent of Meal Consumed 75% Feeding Ability Independent Urine Appearance Clear Clear Clear Uretheral (Lan[place]) Clear Clear Clear Urine Color Dark Yellow Dark Melinda Light Melinda Uretheral ([place]) Dark Yellow Dark Yellow Light Melinda Urine Odor Normal Normal Stool Size Moderate Moderate Moderate Stool Color Brown Brown Stool Consistency Soft Soft Soft Formed - Lab 08/26/19 04:12 08/26/19 04:13 Most recent lab results Calcium 8.1 mg/dl (8.6-10.4) L 08/26/19 04:13 Phosphorus 2.3 mg/dL (2.7-4.5) L 08/26/19 04:13 Magnesium 1.9 mg/dL (1.6-2.5) 08/26/19 04:13 Microbiology 08/24/19 11:13 Blood Blood Culture - Final Strep agalactiae - (group b) 08/24/19 13:39 Urine - [place]ier Urine Culture - Final 08/24/19 11:08 Blood Blood Culture - Preliminary Gram positive cocci 08/24/19 19:05 Skin - Buttocks MRSA (PCR) - Final 08/24/19 17:34 Nose MRSA (PCR) - Final Medications Active Medications: Acetaminophen (Tylenol) 650 mg PO Q4-6HP PRN; Protocol PRN Reason: PAIN/FEVER > 101 Hydrocodone Bitart/Acetaminophen (Merom 10/325mg) 1 tab PO Q6HP PRN; Protocol PRN Reason: PAIN LEVEL 3-6 Albuterol/Ipratropium (Duoneb) 3 ml NEB Q4HRT PRN PRN Reason: Bronchospasm Docusate Sodium (Colace) 100 mg PO BID [facility] Enoxaparin Sodium (Lovenox) 40 mg SQ DAILY [facility] Furosemide (Lasix) 20 mg IV Q8 [facility] Last Admin: 08/26/19 10:45 Dose: 20 mg Documented by: SAMUEL Ceftriaxone Sodium 2 gm/ (Dextrose) 50 mls @ 100 mls/hr IV Q24H [facility]; Protocol Last Admin: 08/26/19 10:17 Dose: Not Given Documented by: SAMUEL Non-Admin Reason: Given at 0800 prior to transfer order Norepinephrine Bitartrate 16 (mg/ Sodium Chloride) 250 mls @ 9.375 mls/hr IV Q24HP PRN; Protocol PRN Reason: Hypotension Sodium Chloride (Sodium Chloride 0.9%) 250 mls @ 20 mls/hr IV .[id number] [facility] Last Admin: 08/26/19 10:17 Dose: Not Given Documented by: SAMUEL Non-Admin Reason: PRN Melatonin (Melatonin 3mg Tablet) 3 mg PO HSP PRN PRN Reason: Insomnia Ondansetron HCl (Zofran) 4 mg IV Q4-6HP PRN; Protocol PRN Reason: Nausea And Vomiting Pantoprazole Sodium (Protonix) 40 mg PO QAMAC [facility] Promethazine HCl (Phenergan) 12.5 mg IV Q4-6HP PRN; Protocol PRN Reason: Nausea And Vomiting Senna (Senokot) 1 tab PO HSP PRN PRN Reason: Constipation Sodium Chloride (Saline Flush) 10 ml IV Q8 [facility] Throat Lozenges (Cepacol) 1 lozenge PO PRN PRN PRN Reason: Sore Throat Zolpidem Tartrate (Ambien) 10 mg PO HSP PRN PRN Reason: Insomnia Assessment and Plan - Narrative A/P Narrative: A: 1. Group B Streptococcal bacteremia: - likely source is scrotal cellulitis and/or sacral area ulcer 2. Diffuse scrotal cellulitis: on clinical exam and US. No testicular inv - risk factors of chronic scrotal swellling, sacral area ulcer - no concerns for Gricelda's gangrene - MRSA nasal PCR neg 3. Septic shock: sec to (1) - resolved Recommendations: - Continue IV Ceftriaxone 2 gm q24 hrs, day 2 - consider TTE - scrotal elevation - superficial wound care for the sacral area wound - repeat blood Cx being processes. If these blood Cx neg for 48 hrs, consider midline placement for IV Ceftriaxone as OP - will comment on duration and f/u near discharge Rojas Buitrago MD Infectious diseases
[2019-08-27] MEDS: 0.9 % SODIUM CHLORIDE 10 ML SYRINGE IV SCH (05:56)
[2019-08-27] MEDS: FUROSEMIDE 20 MG/2 ML VIAL IV SCH (05:56)
[2019-08-27] MEDS: HYDROcodone/APAP 10/325MG TABLET PO PRN ×2 (06:01→12:01)
[2019-08-27 06:37] LABS: Hematocrit 28.3 % (41.0-55.0); Hemoglobin 9.5 g/dL (13.5-16.5); Mean Cell Volume 78.8 fL (80.0-100.0); Mean Corpuscular HGB Conc 33.7 g/dL (31.0-36.0); Mean Platelet Volume 7.8 fL (7.4-10.4); Platelet Count 284 K/mcL (140-440); RBC 3.59 M/mcL (4.50-5.90); Red Cell Distribution Width 17.3 % (11.5-14.5); WBC 6.6 K/mcL (4.5-11.0)
[2019-08-27 06:55] LABS: ALT/SGPT 12 U/l (0-40); AST/SGOT 13 U/l (0-37); Albumin 2.7 gm/dL (3.2-5.2); Albumin/Globulin Ratio 0.8 (1.0-2.3); Alkaline Phosphatase 62 U/L (39-117); Bilirubin,Direct < 0.2 mg/dL (0.0-0.3); Bilirubin,Total < 0.2 mg/dL (0.0-1.0); Blood Urea Nitrogen 24 mg/dl (8-23); Calcium 8.4 mg/dl (8.6-10.4); Carbon Dioxide 23 mmol/L (22-30); Chloride 106 mmol/L (96-108); Globulin 3.6 gm/dL (2.2-3.7); Glomerular Filtration Rate 39; Glucose 86 mg/dL (70-105); Lactate Dehydrogenase 130 U/L (94-250); Phosphorous 2.3 mg/dL (2.7-4.5); Triglycerides 241 mg/dl (<150); Uric Acid 7.4 mg/dL (2.5-8.0)
[2019-08-27 07:29] LABS: Anisocytosis 1+ (NONE SEEN); Band Neutrophils % 12 % (0-10); Eosinophils % (Manual) 5 % (0-7); Hypochromasia 1+ (NONE SEEN); Lymphocytes % 10 % (15-49); Microcytosis 1+ (NONE SEEN); Monocytes % (Manual) 6 % (1-12); Platelet Estimate NORMAL (NORMAL); Polychromasia FEW (NONE SEEN); RBC Morphology ABNORM (NORMAL); Segmented Neutrophils % 67 % (38-78)
[2019-08-27] MEDS ORDERED: PANTOPRAZOLE 40 MG TABLET PO SCH (07:30)
[2019-08-27] MEDS ORDERED: ENOXAPARIN 40 MG/0.4 ML SYRINGE SQ SCH (09:00)
[2019-08-27] MEDS: cefTRIAXone 2 GM in DEXTROSE 5% IN WATER 50 ML IV SCH (09:19)
[2019-08-27] MEDS: DOCUSATE SODIUM 100 MG CAPSULE PO SCH (09:20)
--- NOTE | 2019-08-27 09:24 | General Surgery Progress Note ---
Subjective Patient reports: other (Progressing well, from wound care poin of view. ) Narrative: Note initiated : 08/27/19 at 9:20 am Service Date, if different from initiated Date: [] Patient: Mainor Moran 74 y/o M admitted on 08/24/19 for Possible Sepsis. Chief Complaint: [] Objective Temp Pulse Resp BP Pulse Ox 98.5 F 57 L 18 128/59 98 08/27/19 07:42 08/26/19 16:11 08/27/19 07:42 08/27/19 07:42 08/27/19 07:42 AVSS. HD stable. Looks good and feels well. Just finished eating b/f. Patient was able to lie flat ROLLED over to side easily. INFLAMMATORY changes resolving. Decreased tenderness, edema and erythema. NO drainage and NO odor. - Additional Data Intake & Output - Last 24 hours: Intake & Output 08/25/19 08/26/19 08/27/19 08/28/19 05:59 05:59 05:59 05:59 Intake Total 6734 3051 1160 240 Output Total 1492 1284 4250 450 Balance 5242 1767 -3090 -210 Weight 264 lb 3 oz 271 lb 12.8 oz 270 lb 6.4 oz - Labs 08/27/19 03:54 08/27/19 03:53 Diabetes panel 08/27/19 Range/Units 03:53 Sodium 141 (133-145) mmol/L Potassium 3.7 (3.3-5.1) mmol/L Chloride 106 (96-108) mmol/L Carbon Dioxide 23 (22-30) mmol/L BUN 24 H (8-23) mg/dl Creatinine 1.7 H (0.7-1.2) mg/dl Glucose 86 (70-105) mg/dL Calcium 8.4 L (8.6-10.4) mg/dl AST 13 (0-37) U/l ALT 12 (0-40) U/l Alkaline Phosphatase 62 (39-117) U/L Total Protein 6.3 (5.9-8.4) gm/dL Albumin 2.7 L (3.2-5.2) gm/dL Triglycerides 241 H (<150) mg/dl Calcium panel 08/27/19 Range/Units 03:53 Calcium 8.4 L (8.6-10.4) mg/dl Phosphorus 2.3 L (2.7-4.5) mg/dL Albumin 2.7 L (3.2-5.2) gm/dL Pituitary panel 08/27/19 Range/Units 03:53 Sodium 141 (133-145) mmol/L Potassium 3.7 (3.3-5.1) mmol/L Chloride 106 (96-108) mmol/L Carbon Dioxide 23 (22-30) mmol/L BUN 24 H (8-23) mg/dl Creatinine 1.7 H (0.7-1.2) mg/dl Glucose 86 (70-105) mg/dL Calcium 8.4 L (8.6-10.4) mg/dl Adrenal panel 08/27/19 Range/Units 03:53 Sodium 141 (133-145) mmol/L Potassium 3.7 (3.3-5.1) mmol/L Chloride 106 (96-108) mmol/L Carbon Dioxide 23 (22-30) mmol/L BUN 24 H (8-23) mg/dl Creatinine 1.7 H (0.7-1.2) mg/dl Glucose 86 (70-105) mg/dL Calcium 8.4 L (8.6-10.4) mg/dl Total Bilirubin < 0.2 (0.0-1.0) mg/dL AST 13 (0-37) U/l ALT 12 (0-40) U/l Alkaline Phosphatase 62 (39-117) U/L Total Protein 6.3 (5.9-8.4) gm/dL Albumin 2.7 L (3.2-5.2) gm/dL Assessment and Plan (1) Altered mental status Status: Acute Current Visit: Yes (2) Sepsis Status: Acute Current Visit: Yes (3) Decubital ulcer Status: Acute Current Visit: No (4) CHF (congestive heart failure) Status: Acute Current Visit: No - Time Spent With Patient Total time spent is greater than 50% in coordination of care (as documented) at patient's floor/unit and/or counseling patient: Assessment: Patient seen along with wound care and ICU nurses. Radiation soft tissue dermatitis around scrotum and sacral area improved. Satisfactory response to wound care ( MIST with local antibiotic ointment ) Plan: Continue current treatment. 15 - 24 minutes
--- NOTE | 2019-08-27 10:24 | Discharge Summary ---
Medical - DS: Prov Patient information: Note initiated : 08/27/19 at 10:22 am Service Date, if different from initiated Date: [] Patient: Mainor Moran 74 y/o M admitted on 08/24/19 for Possible Sepsis. Chief Complaint: [] Date of admission: 08/24/19 16:52 Discharge date: 08/27/19 Primary care physician: Charlie Dowling Consults: 08/24/19 15:07 Consult to Physician [CONS] Stat Comment: Consulting Provider: Maicol Segal Reason For Exam: Physician to Consult 08/24/19 17:13 Consult to Physician [CONS] Routine Comment: Consulting Provider: Rojas Buitrago Reason For Exam: Physician to Consult 08/25/19 10:36 Consult to Physician [CONS] Routine Comment: rectal wound Consulting Provider: Barry Boswell Reason For Exam: Physician to Consult Medical - DS: Meds - Discharge Medications Prescriptions: cefTRIAXone [Rocephin] 2 gm IV Q24H #12 vial Transmission Status: Pending to [facility] Active and Home Medications: Home Medications Finasteride [Proscar] 5 mg PO DAILY 08/24/19 [History Confirmed 08/24/19 Last Taken Unknown] Furosemide [Lasix] 40 mg PO QAM 08/24/19 [History Confirmed 08/25/19 Last Taken Unknown] Gabapentin [Neurontin] 300 mg PO TID 08/24/19 [History Confirmed 08/25/19 Last Taken Unknown] HYDROcodone/APAP 10/325MG [[place] 10-325Mg] 1 tab PO QID 08/24/19 [History Confirmed 08/25/19 Last Taken Unknown] Oxybutynin Chloride [Ditropan] 10 mg PO HS 08/24/19 [History Confirmed 08/24/19 Last Taken Unknown] Tamsulosin [Flomax] 0.8 mg PO HS 08/24/19 [History Confirmed 08/24/19 Last Taken Unknown] Zolpidem [Ambien] 10 mg PO HSP PRN 08/24/19 [History Confirmed 08/24/19 Last Taken Unknown] buPROPion HCL [Bupropion Xl] 150 mg PO QAM 08/24/19 [History Confirmed 08/24/19 Last Taken Unknown] cefTRIAXone [Rocephin] 2 gm IV Q24H #12 vial 08/27/19 [Rx Last Taken Unknown] Medical - DS: Hosp Hospital Course: Discharge diagnosis * Septic shock secondary to alpha streptococci bacteremia. Surveillance cultures been negative. Likely source scrotal cellulitis. Clinical improvement noted on IV Rocephin. Continue additional 12 days IV Rocephin as per ID recommendations. Off pressors. * Cellulitis of the scrotum:-u/s scrotum and CT a/p without contrast but no evidence of gas or perineal cellulitis. Managed per wound care. Continue sc rotal elevation/diuretics * Streptococcus bacteremia on Rocephin per ID for additional 12 days. Surveillance cultures negative. Echo no evidence of vegetation. * Encephalopathy (lethargy): 2/2 above, resolved * CKD IIIb (base Cr~1.7-1.8): At baseline * BPH: Stable able to void * Chronic LBP: * Depression/anxiety * Obesity counseled on weight loss measures Brief hospital course Mr. Moran is a 74 year old M Presents to the ED for weakness and altered mental state. He arrives via the EMS. I am been having a difficult time getting history from him. I asked if he brought himself and or if he had some nails bring him and he said he had some Librium and but could not remember who. But per notes he was brought in by EMS. Not sure who called them. And try to obtain history from him he admits not feeling well and weakness when I guide him with questioning. But otherwise I cannot get much of a history from him. He says his scrotum is swollen off and on frequently but perhaps it is little more swollen and more red as well today. Little bit tender to the touch. He also reports fevers. Denies any chest pain or shortness of breath any bowel changes. No stomach pain. Has a history of scrotal cellulitis. has also had a history of pubic symphysis osteomyelitis. CT abdomen pelvis showed no acute source of sepsis did show a large 5 x 1.6 cm large cutaneous ulcer associated fibrosis in the perineal soft tissues appear to be stable from previous imaging. Ultrasound of scrotum showed cellulitis no abscess or deeper structures noted per discussion with ER provider. 08/25 Patient feeling better this morning but quite tired and exhausted. Vasopressors started last night. Titrated down and then up a little bit this morning. Mentation much improved. Scrotum tender but improving. No new complaints. 08/26-patient doing better. Started on diuretics in light of significant scleral lymphedema. White count downtrending. T-max 102. Off pressors. Mild MELISSA clinically improving. GPC bacteremia growing alpha strep. On Rocephin per ID. Start diuresis. DC IV fluids. 08/27-patient doing well. No overnight events. No concerns per staff. Fever defervesced. White count normalized. Ongoing wound care. Continue Rocephin as per ID recommendations. Surveillance cultures have been negative so far. Continue additional 12 days IV Rocephin with home health services. Continue diuretics as advised along with limb and scrotal elevation. Lanier's catheter discontinued. Detailed discharge instructions as below Discharge diagnosis: . - Time Spent with Patient Total time spent providing and/or coordinating discharge services: Greater than 30 minutes Medical - DS: Exam - Constitutional Vitals: Vital Signs Temp Pulse Resp BP Pulse Ox 08/27/19 07:42 98.5 F 18 128/59 98 08/27/19 01:43 125/68 97 08/27/19 01:00 18 95 08/26/19 20:16 99.2 F H 18 134/62 97 08/26/19 20:00 97 08/26/19 16:11 98.8 F 57 L 18 131/65 100 08/26/19 11:48 98.2 F 16 113/70 100 Intake and Output 08/26/19 08/27/19 08/27/19 21:59 05:59 13:59 Intake Total 390 240 Output Total 5118 8253 052 Balance -1250 -1665 -310 Intake: Oral 390 240 Output: Urine Catheter Amount 1640 4885 878 Other: Meal Dinner Percent of Meal Consumed 100% Feeding Ability Independent Urine Appearance Clear Clear Clear Uretheral (Lanier) Clear Clear Urine Color Pale Pale Pale Uretheral (Lanier) Pale Pale Urine Odor Normal Stool Consistency Liquid Weight 270 lb 6.4 oz Medical - DS: Data Labs on day of discharge: Labs from last 24 hours 08/27/19 08/27/19 03:54 03:53 WBC 6.6 RBC 3.59 L Hgb 9.5 L Hct 28.3 L MCV 78.8 L MCH 26.6 MCHC 33.7 RDW 17.3 H Plt Count 284 MPV 7.8 Total Counted 100 Seg Neutrophils % 67 Band Neutrophils % 12 H Lymphocytes % 10 L Monocytes % (Manual) 6 Eosinophils % (Manual) 5 Platelet Estimate Normal RBC Morphology Abnorm A Polychromasia Few A Hypochromasia 1+ A Anisocytosis 1+ A Microcytosis 1+ A Sodium 141 Potassium 3.7 Chloride 106 Carbon Dioxide 23 Anion Gap 12.0 BUN 24 H Creatinine 1.7 H GFR Calculation 39 Glucose 86 Uric Acid 7.4 Calcium 8.4 L Phosphorus 2.3 L Magnesium 1.9 Total Bilirubin < 0.2 Direct Bilirubin < 0.2 GGT 34 AST 13 ALT 12 Alkaline Phosphatase 62 Lactate Dehydrogenase 130 Total Protein 6.3 Albumin 2.7 L Globulin 3.6 Albumin/Globulin Ratio 0.8 L Triglycerides 241 H Preliminary micro results at discharge 08/25/19 20:22 Blood Culture - Preliminary Blood 08/25/19 20:01 Blood Culture - Preliminary Blood 08/24/19 11:08 Blood Culture - Preliminary Blood Gram positive cocci Medical - DS: A/P - Patient/Caregiver Discharge Instructions Activity: as per physical therapy, increase activity as tolerated, other (Wound care Dr. Elbert gordon) Diet: Regular Diet Additional Instructions: You are scheduled for IV antibiotics at [facility]'s same day surgery on Follow-up PCP in 5 to 7 days Follow-up ID clinic in 10 to 12 days - Continue IV Ceftriaxone 2 gm q24 hrs, X 12days - scrotal elevation/ diuretics - superficial wound care for the sacral area wound with dr Elbert gordon Continue aggressive bowel regimen to prevent constipation Continue fall precautions daily weights measurements and take additional 40 mg Lasix for 3 days if weight gain over 4 pounds over baseline or worsening scrotal swelling, call primary care physician if inadequate response to Lasix Continue aggressive PT OT evaluation and treatment with home health services All meals on chair sitting upright at 90 degrees to prevent aspiration Return to ER if worsening fever chills shortness of breath, diarrhea, bleeding Review risk and side effect profile of medications including antibiotics. Side effect may include mild to severe reaction including rash, diarrhea, cdiff and even which can be prevented by close follow-up with PCP and monitoring for side effects Continue diet and activity as advised Discussed importance of medication adherence Please review medication list with patient prior to discharge Please schedule follow-up with PCP/Providers prior to discharge and provide printouts Prescriptions: cefTRIAXone [Rocephin] 2 gm IV Q24H #12 vial Transmission Status: Pending to [facility] - Problem Maintenance (1) Septic shock Status: Acute - Follow up Plan Follow up with: Rojas Buitrago MD [Physician] - 09/08/19 9:00 am Charlie Dowling PA-C [Primary Care Provider] - 09/07/19 1:00 pm (Please check in at 14:45) Disposition: Home Health Service Care Plan Goals: This discharge packet is provided to you to help keep you informed about your care. We want to ensure you get everything you need when you go home. You will also be receiving a call from us in a few days to follow up with you and see how you are doing since your discharge. This gives us a chance to listen to any concerns you maybe experiencing since you were discharged or any additional needs you may have, as well as providing us feedback on your care experience. We strive to always provide excellent care and thank you for your feedback and for choosing [facility]. Prognosis: Fair Rehab Potential: Fair I certify that the patient requires SNF services: No Overall status at discharge: patient is progressing back to baseline Medical - DS: Qual - VTE Deep Vein Thrombosis/Pulmonary Embolism Present on Admission: No
[2019-08-27] MEDS: 0.9 % SODIUM CHLORIDE 250 ML IV SCH (11:30)
--- NOTE | 2019-08-27 16:42 | Infectious Disease Prog Note ---
Subjective Patient information: Note initiated : 08/27/19 at 4:33 pm Service Date, if different from initiated Date: [] Patient: Mainor Moran 74 y/o M admitted on 08/24/19 for Possible Sepsis. Chief Complaint: [] Interval history: Pt continues to do better. Denies any fever, chills, n/v, increased colostomy output. Feels that scrotal pain is less compared to before. Discussed plans to do IV Ceftriaxone through midline for next 12 days, and f/u in ID clinic. Objective Objective Narrative: ao x 3, in nad no thrush chest cta anteriorly s1 s2 normal bs ++ nttd scrotum appears less swollen with marked decrease in redness, non tender, not warm to touch - Vital Signs Vital signs: Vital Signs Temp Pulse Resp BP BP Pulse Ox 08/27/19 13:48 37.0 C 61 18 109/60 98 08/27/19 07:42 36.9 C 18 128/59 98 08/27/19 01:43 125/68 97 08/27/19 01:00 18 95 08/26/19 20:16 37.3 C H 18 134/62 97 08/26/19 20:00 97 Intake and Output 08/27/19 08/27/19 08/27/19 05:59 13:59 21:59 Intake Total 480 Output Total 1665 876 Balance -5 -054 Intake: Oral 480 Output: Urine Catheter Amount 1665 550 Void Amount 75 # of times incontinent of urine 1 Stool 250 Other: Meal Breakfast Percent of Meal Consumed 50% Urine Appearance Clear Clear Uretheral ([place]) Clear Urine Color Pale Pale Uretheral ([place]ier) Pale Urine Odor Normal Stool Consistency Liquid Intake & Output: Intake & Output 08/27/19 08/27/19 08/27/19 05:59 13:59 21:59 Intake Total 480 Output Total 1665 876 Balance -9 -440 Intake: Oral 480 Output: Urine Catheter Amount 1665 550 Void Amount 75 # of times incontinent of urine 1 Stool 250 Other: Meal Breakfast Percent of Meal Consumed 50% Urine Appearance Clear Clear Uretheral ([place]) Clear Urine Color Pale Pale Uretheral (Lanier) Pale Urine Odor Normal Stool Consistency Liquid - Lab 08/27/19 03:54 08/27/19 03:53 Most recent lab results Calcium 8.4 mg/dl (8.6-10.4) L 08/27/19 03:53 Phosphorus 2.3 mg/dL (2.7-4.5) L 08/27/19 03:53 Magnesium 1.9 mg/dL (1.6-2.5) 08/27/19 03:53 Microbiology 08/25/19 20:22 Blood Blood Culture - Preliminary 08/25/19 20:01 Blood Blood Culture - Preliminary 08/24/19 11:13 Blood Blood Culture - Final Strep agalactiae - (group b) 08/24/19 13:39 Urine - Lanier Urine Culture - Final 08/24/19 11:08 Blood Blood Culture - Preliminary Gram positive cocci 08/24/19 19:05 Skin - Buttocks MRSA (PCR) - Final 08/24/19 17:34 Nose MRSA (PCR) - Final Medications Active Medications: Acetaminophen (Tylenol) 650 mg PO Q4-6HP PRN; Protocol PRN Reason: PAIN/FEVER > 101 Hydrocodone Bitart/Acetaminophen ([place] 10/325mg) 1 tab PO Q6HP PRN; Protocol PRN Reason: PAIN LEVEL 3-6 Last Admin: 08/27/19 12:01 Dose: 1 tab Documented by: Admin: 08/27/19 06:01 Dose: 1 tab Documented by: Admin: 08/26/19 19:54 Dose: 1 tab Documented by: EDVIN Albuterol/Ipratropium (Duoneb) 3 ml NEB Q4HRT PRN PRN Reason: Bronchospasm Docusate Sodium (Colace) 100 mg PO BID [facility] Last Admin: 08/27/19 09:20 Dose: 100 mg Documented by: Admin: 08/26/19 19:54 Dose: 100 mg Documented by: EDVIN Enoxaparin Sodium (Lovenox) 40 mg SQ DAILY [facility] Last Admin: 08/27/19 09:20 Dose: 40 mg Documented by: BRITTNI Furosemide (Lasix) 20 mg IV Q8 [facility] Last Admin: 08/27/19 05:56 Dose: 20 mg Documented by: Admin: 08/26/19 21:47 Dose: 20 mg Documented by: Admin: 08/26/19 14:09 Dose: 20 mg Documented by: Admin: 08/26/19 10:45 Dose: 20 mg Documented by: SAMUEL Heparin Sodium (Porcine) (Heparin Flush) 2 ml IV Q12 [facility] Ceftriaxone Sodium 2 gm/ (Dextrose) 50 mls @ 100 mls/hr IV Q24H [facility]; Protocol Last Admin: 08/27/19 09:19 Dose: 100 mls/hr Documented by: Admin: 08/26/19 10:17 Dose: Not Given Documented by: SAMUEL Non-Admin Reason: Given at 0800 prior to transfer order Norepinephrine Bitartrate 16 (mg/ Sodium Chloride) 250 mls @ 9.375 mls/hr IV Q24HP PRN; Protocol PRN Reason: Hypotension Sodium Chloride (Sodium Chloride 0.9%) 250 mls @ 20 mls/hr IV .[id number] [facility] Last Admin: 08/27/19 11:30 Dose: Not Given Documented by: BRITTNI Non-Admin Reason: Clinical Judgement Admin: 08/26/19 21:47 Dose: Not Given Documented by: EDVIN Non-Admin Reason: PRN Admin: 08/26/19 10:17 Dose: Not Given Documented by: SAMUEL Non-Admin Reason: PRN Melatonin (Melatonin 3mg Tablet) 3 mg PO HSP PRN PRN Reason: Insomnia Ondansetron HCl (Zofran) 4 mg IV Q4-6HP PRN; Protocol PRN Reason: Nausea And Vomiting Pantoprazole Sodium (Protonix) 40 mg PO QAMAC [facility] Last Admin: 08/27/19 07:03 Dose: 40 mg Documented by: BRITTNI Promethazine HCl (Phenergan) 12.5 mg IV Q4-6HP PRN; Protocol PRN Reason: Nausea And Vomiting Senna (Senokot) 1 tab PO HSP PRN PRN Reason: Constipation Sodium Chloride (Saline Flush) 10 ml IV Q8 [facility] Last Admin: 08/27/19 05:56 Dose: 10 ml Documented by: Admin: 08/26/19 21:47 Dose: 10 ml Documented by: Admin: 08/26/19 14:09 Dose: 10 ml Documented by: SAMUEL Sodium Chloride (Saline Flush) 10 ml IV Q12 [facility] Throat Lozenges (Cepacol) 1 lozenge PO PRN PRN PRN Reason: Sore Throat Zolpidem Tartrate (Ambien) 10 mg PO HSP PRN PRN Reason: Insomnia Last Admin: 08/26/19 19:54 Dose: 10 mg Documented by: ODGERS Assessment and Plan - Narrative A/P Narrative: A: 1. Group B Streptococcal bacteremia: - likely source is scrotal cellulitis and/or sacral area ulcer - TTE neg for infective endocarditis - only 1 day of +ve blood Cx, blood cx negative since 08/25/19 2. Diffuse scrotal cellulitis: on clinical exam and US. Now almost resolved - risk factors of chronic scrotal swellling, sacral area ulcer - no concerns for Gricelda's gangrene - MRSA nasal PCR neg 3. Septic shock: sec to (1) - resolved Recommendations: - Continue IV Ceftriaxone 2 gm q24 hrs, day 214. Stop date: 09/10/19 - scrotal elevation and superficial wound care for the sacral area wound at home - midline placement for IV Ceftriaxone at home - ID f/u scheduled for Aug at 9 am - PCP and Cardiology f/u for chronic scrotal edema Rojas Buitrago MD Infectious diseases
[2019-08-27] MEDS ORDERED: 0.9 % SODIUM CHLORIDE 10 ML SYRINGE IV SCH (21:00)
== END 2019-08-27 13:35 | disposition home health service (06) | DRG 871 ==
LOC: ED 10:26 → ICU 16:52
PROVIDERS: ADMIT Internal Medicine; ATTEND Internal Medicine